=== PATIENT | female | born 1970 | race Caucasian/White ===

== ENCOUNTER 2017-11-25 14:39 | Outpatient (REF) | payer MEDICAID, SELFPAY ==
[2017-11-25 19:17] LABS: HCT 43.2 % (36.0-46.0); HGB 14.3 g/dL (12.0-15.5); Mean Corp. HGB Concentration 33.1 g/dL (32.0-36.0); Mean Corpuscular Hemoglobin 36.4 pg (27.0-33.0); Mean Corpuscular Volume 109.9 fL (80-95); Mean Platelet Volume 11.3 fL (8.0-11.0); Platelet Count 306 x1000/uL (130-400); RBC 3.93 m/cumm (4.00-5.20); RBC Distribution Width 13.6 % (11.7-14.6); White Blood Cell Count 10.84 k/cumm (4.4-10.8)
[2017-11-25 20:04] LABS: ALT 157 U/L (12-78); AST 156 U/L (15-37); Albumin 4.3 g/dL (3.4-5.0); Alkaline Phosphatase 138 U/L (46-116); Anion Gap 10.7 mmol/L (3-11); BUN 13 mg/dL (7-18); Bilirubin, Total 0.5 mg/dL (0.2-1.0); CO2 28.3 mmol/L (21.0-32.0); CREATININE 0.78 mg/dL (0.55-1.02); Calcium 9.4 mg/dL (8.5-10.1); Chloride 98 mmol/L (98-107); Glucose 97 mg/dL (70-100); LDL CHOLESTEROL 86 mg/dL (<100); Potassium 4.4 mmol/L (3.5-5.1); Sodium 137 mmol/L (136-145)
[2017-11-25 20:51] LABS: Lipase 131 U/L (73-393)
== END 2017-11-25 14:59 ==
LOC: NCHCN 14:39
PROVIDERS: PCP Internal Medicine; Visit Provider Internal Medicine
DX: K31.84 Gastroparesis (principal); F33.9 Major depressive disorder, recurrent, unspecified; Z00.00 Encounter for general adult medical examination without abnormal findings
CPT/HCPCS: 80053; 83690; 83721; 85027; 84443

== ENCOUNTER 2019-03-28 12:47 | Outpatient (REF) | payer MEDICAID, SELFPAY ==
[2019-03-28 20:47] LABS: TSH 1.99 uIU/mL (0.36-3.74)
[2019-03-28 21:47] LABS: Vitamin B12 885 pg/mL (193-986)
[2019-03-30 06:46] LABS: Vitamin D 25 Total 29.9 ng/ml (30-100)
== END 2019-03-28 13:07 ==
LOC: NCHCN 12:47
PROVIDERS: PCP Internal Medicine; Visit Provider Nurse Practitioner Psychiatric/Mental Health
DX: F33.2 Major depressive disorder, recurrent severe without psychotic features (principal); F41.0 Panic disorder [episodic paroxysmal anxiety]
CPT/HCPCS: 82306; 82607; 84443

== ENCOUNTER 2019-05-09 12:06 | Outpatient (REF) | payer MEDICAID, SELFPAY ==
[2019-05-09 19:18] LABS: ALT 97 U/L (14-59); AST 92 U/L (15-37); Albumin 3.8 g/dL (3.4-5.0); Alkaline Phosphatase 112 U/L (46-116); Anion Gap 12.6 mmol/L (3-11); BUN 7 mg/dL (7-18); Bilirubin, Total 0.6 mg/dL (0.2-1.0); CO2 25.4 mmol/L (21.0-32.0); CREATININE 0.71 mg/dL (0.55-1.02); Calcium 8.5 mg/dL (8.5-10.1); Chloride 103 mmol/L (98-107); Glucose 98 mg/dL (74-106); Potassium 3.8 mmol/L (3.5-5.1); Sodium 141 mmol/L (136-145)
== END 2019-05-09 12:26 ==
LOC: NCHCN 12:06
PROVIDERS: PCP Internal Medicine; Visit Provider Nurse Practitioner Family
DX: I10 Essential (primary) hypertension (principal)
CPT/HCPCS: 80053

== ENCOUNTER 2019-09-08 12:21 | Outpatient (REF) | payer MEDICAID, SELFPAY ==
[2019-09-08 20:20] LABS: Abs Immature Grans 0.03 k/cumm (0.0-0.09); Absolute Basophil Count 0.02 k/cumm (0.0-0.2); Absolute Lymphocyte Count 2.18 k/cumm (1.2-3.4); Absolute Monocyte Count 0.69 k/cumm (0.11-0.7); Absolute Neutrophil Count 6.26 k/cumm (1.2-6.7); Basophils % 0.2; Eosinophils % 1.1; HCT 46.2 % (36.0-46.0); HGB 16.2 g/dL (12.0-15.5); Immature Grans % 0.3 %; Lymphocytes % 23.5; Mean Corp. HGB Concentration 35.1 g/dL (32.0-36.0); Mean Corpuscular Hemoglobin 35.5 pg (27.0-33.0); Mean Corpuscular Volume 101.3 fL (80-95); Mean Platelet Volume 11.1 fL (8.0-11.0); Monocytes % 7.4; Neutrophils % 67.5; Platelet Count 295 x1000/uL (130-400); RBC 4.56 m/cumm (4.00-5.20); RBC Distribution Width 13.8 % (11.7-14.6); White Blood Cell Count 9.28 k/cumm (4.4-10.8)
[2019-09-08 20:21] LABS: Iron 151 ug/dL (50-170); Total Iron Binding Capacity 331 ug/dL (250-450); Transferrin Sat 46 % (15-50)
[2019-09-08 20:33] LABS: Ferritin 209 ng/mL (8-252); Magnesium 1.2 mg/dL (1.8-2.4)
== END 2019-09-08 12:41 ==
LOC: NCHCN 12:21
PROVIDERS: PCP Internal Medicine; Visit Provider Physician Assistant
DX: L28.0 Lichen simplex chronicus (principal)
CPT/HCPCS: 82728; 83540; 83550; 83735; 85025

== ENCOUNTER 2019-10-18 19:12 | Outpatient (REF) | payer MEDICAID, SELFPAY ==
[2019-10-18 21:52] LABS: Abs Immature Grans 0.06 10^3/uL (0.0-0.06); Absolute Basophil Count 0.03 10^3/uL (0.0-0.2); Absolute Eosinophil Count 0.11 10^3/uL (0.0-0.7); Absolute Lymphocyte Count 3.74 10^3/uL (1.2-3.4); Absolute Monocyte Count 0.72 10^3/uL (0.1-0.8); Basophils % 0.2; Eosinophils % 0.9; HCT 47.6 % (36.0-46.0); HGB 16.3 g/dL (11.2-15.7); Immature Grans % 0.5; Lymphocytes % 29.5; MCH 34.9 pg (27.0-33.0); MCHC 34.2 % (32.0-36.0); MCV 101.9 fL (80-95); MPV 10.8 fL (8.0-11.0); Monocytes % 5.7; Neutrophils % 63.2; Nucleated RBC 0 %; Platelet Count 315 10^3/uL (130-400); RBC 4.67 10^6/uL (3.93-5.22); RDW 12.8 % (11.7-14.6); RDW-SD 47.9 fL; WBC 12.68 10^3/uL (4.4-10.8)
[2019-10-18 21:55] LABS: Absolute Neutrophil Count 8.01 10^3/uL (1.2-6.7)
[2019-10-18 22:05] LABS: ALT 94 U/L (14-59); AST 52 U/L (15-37); Albumin 3.8 g/dL (3.4-5.0); Alkaline Phosphatase 126 U/L (46-116); Amylase 40 U/L (25-115); Anion Gap 14.8 mmol/L (3-11); BUN 6 mg/dL (7-18); Bilirubin, Total 0.6 mg/dL (0.2-1.0); CO2 23.2 mmol/L (21.0-32.0); CREATININE 0.73 mg/dL (0.55-1.02); Calcium 9.4 mg/dL (8.5-10.1); Chloride 104 mmol/L (98-107); Glucose 93 mg/dL (74-106); Lipase 217 U/L (73-393); Magnesium 1.6 mg/dL (1.8-2.4); Potassium 3.6 mmol/L (3.5-5.1); Sodium 142 mmol/L (136-145); Total Protein 7.2 g/dL (6.4-8.2)
== END 2019-10-18 19:32 ==
LOC: NCHCN 19:12
PROVIDERS: PCP Internal Medicine; Visit Provider Physician Assistant
DX: K86.1 Other chronic pancreatitis (principal)
CPT/HCPCS: 80053; 83690; 82150; 83735; 85025

== ENCOUNTER 2020-02-02 12:49 | Outpatient (REF) | payer MEDICAID, SELFPAY ==
[2020-02-06 22:17] LABS: COVID-19 RT-PCR Result NEGATIVE (Negative)
== END 2020-02-02 13:09 ==
LOC: NCHCN 12:49
PROVIDERS: PCP Internal Medicine; Visit Provider Physician Assistant
DX: Z20.828 Contact with and (suspected) exposure to other viral communicable diseases (principal)
CPT/HCPCS: U0003

== ENCOUNTER 2022-08-07 19:10 | Outpatient (REF) | payer MEDICARE, MEDICAID, SELFPAY ==
[2022-08-07 19:08] LABS: HCT 36.3 % (36.0-46.0); HGB 12.6 g/dL (11.2-15.7); MCH 34.2 pg (27.0-33.0); MCHC 34.7 % (32.0-36.0); MCV 99 fL (80-95); MPV 10.9 fL (8.0-11.0); Platelet Count 310 10^3/uL (130-400); RBC 3.68 10^6/uL (3.93-5.22); RDW 12.7 % (11.7-14.6); RDW-SD 46.2 fL; WBC 6.03 10^3/uL (4.4-10.8)
[2022-08-07 19:32] LABS: ALT 30 U/L (14-59); AST 28 U/L (15-37); Albumin 4.3 g/dL (3.4-5.0); Alkaline Phosphatase 80 U/L (46-116); Anion Gap 7.7 mmol/L (3-11); BUN 16 mg/dL (7-18); Bilirubin, Total 0.6 mg/dL (0.2-1.0); CO2 27.3 mmol/L (21.0-32.0); CREATININE 0.8 mg/dL (0.55-1.02); Calculated LDL 130 mg/dL (<100); Chloride 102 mmol/L (98-107); Cholesterol 218 mg/dL (<200); Estimated GFR 89.71 (mL/min/1.73m2); Glucose 92 mg/dL (74-106); HDL Cholesterol 70 mg/dL (40-60); Potassium 4.3 mmol/L (3.5-5.1); Sodium 137 mmol/L (136-145); TSH (W/Ref FT4) 1.58 uIU/mL (0.36-3.74); Total Protein 7.1 g/dL (6.4-8.2); Triglyceride 94 mg/dL (<150)
== END 2022-08-07 19:11 | disposition home or self-care (01) ==
LOC: NCHCN 19:10
PROVIDERS: PCP Internal Medicine; Visit Provider Physician Assistant
DX: I10 Essential (primary) hypertension (principal); E83.42 Hypomagnesemia; F33.1 Major depressive disorder, recurrent, moderate; E66.3 Overweight; Z87.891 Personal history of nicotine dependence
CPT/HCPCS: 80053; 80061; 85027; 84443

== ENCOUNTER 2023-08-11 15:38 | Outpatient (REF) | payer MEDICARE, SELFPAY ==
--- OUTSIDE RECORDS SUMMARY | 2023-08-11 15:46 | XMS_ITS | Continuity of Care Document ---
Author Name Unknown Organization [facility] Address [address] [place] [address] Care Team Providers Care Public Transportation Inspector Name Role Phone [place] IPHCDuncan Primary Care Physician Encounter [id number] Date(s): 03/11/23 - 04/28/[address] [id number] Discharge Disposition: Home or Self Care Attending Physician: Danilo Rios MD Admitting Physician: Danilo Rios MD Referring Physician: Danilo Rios MD Allergies, Adverse Reactions, Alerts No Known Medication Allergies Medications buPROPion 150 mg/12 hours (SR) oral tablet, extended release 0 Refill(s) Start Date: 03/23/23 Status: Ordered buPROPion 300 mg/24 hours (XL) oral tablet, extended release 300 mg = 1 tab, Oral, Daily, # 30 tab, 0 Refill(s) Start Date: 02/24/23 Status: Ordered cholecalciferol 1000 intl units oral capsule Oral, 1000 Unknown, 0 Refill(s), Take 1,000 Units by mouth daily., 0 Refill(s) Start Date: 02/07/20 Status: Ordered gabapentin 400 mg oral capsule 400 mg = 1 cap, Oral, BID, 0 Refill(s) Start Date: 02/24/23 Status: Ordered magnesium gluconate 250 mg oral tablet 250 mg 1 tab, Oral, Daily, # 30 tab, 0 Refill(s) Start Date: 02/24/23 Status: Ordered meloxicam 7.5 mg oral tablet 7.5 mg = 1 tab, Oral, Daily, # 30 tab, 0 Refill(s) Start Date: 02/24/23 Status: Ordered ondansetron 4 mg oral tablet Oral, 8 Unknown, 0 Refill(s), Take 8 mg by mouth as needed., 0 Refill(s) Start Date: 01/18/20 Status: Ordered prochlorperazine 10 mg oral tablet 0 Refill(s) Start Date: 02/24/23 Status: Ordered traZODone 50 mg oral tablet 0 Refill(s) Start Date: 02/24/23 Status: Ordered venlafaxine 225 mg oral tablet, extended release 225 mg = 1 tab, Oral, Daily, # 30 tab, 0 Refill(s) Start Date: 02/24/23 Status: Ordered Vitamin B Complex 100 Oral, 1 Unknown, 0 Refill(s), Take 1 tablet by mouth daily., 0 Refill(s) Start Date: 12/11/19 Status: Ordered Problem List Condition Confirmation Course Effective Dates Status H ealth Status Informant Diarrhea in adult patient Confirmed Active Elbow joint pain, left Confirmed Active History of tobacco use Confirmed Active Hot flashes Confirmed Active Gastroparalysis Confirmed Active History of blood clots Confirmed Active History of acute renal failure Confirmed Active History of adenomatous polyp of colon Confirmed Active Hypertension Confirmed Active Hypomagnesemia Confirmed Active Neurodermatitis Confirmed Active Elevated liver enzymes Confirmed Active Major depression Confirmed Active Nausea in adult Confirmed Active Neuralgia Confirmed Active Knee pain, right Confirmed Active Pain in right upper arm Confirmed Active Panic disorder Confirmed Active Peripheral arterial disease Confirmed Active Chronic recurrent pancreatitis Confirmed Active Small fiber neuropathy Confirmed Active Procedures Procedure Date Related Diagnosis Body Site Status Laparoscopic cholecystectomy 1 06/03/16 Completed Hysterectomy Completed Tubal ligation Completed [facility] Social History Social History Type Response Tobacco Former tobacco user Tobacco Use:. Sex Female Patient Care team information Care Team Personnel Name: Duncan Ureña MD Position: No Access Member Role: Informed Provider Address: Address: [id number] [place] [address] Care Team Related Persons Name: ERIKA YIP Address: Home
[2023-08-11 20:18] LABS: ALT 45 U/L (14-59); AST 37 U/L (15-37); Albumin 4.2 g/dL (3.4-5.0); Alkaline Phosphatase 167 U/L (46-116); Anion Gap 8.1 mmol/L (3-11); BUN 11 mg/dL (7-18); Bilirubin, Total 0.72 mg/dL (0.2-1.0); CO2 28.9 mmol/L (21.0-32.0); CREATININE 1.3 mg/dL (0.55-1.02); Calcium 9.6 mg/dL (8.5-10.1); Chloride 101 mmol/L (98-107); Estimated GFR 49.79 (mL/min/1.73m2); Glucose 88 mg/dL (74-106); Magnesium 1.5 mg/dL (1.8-2.4); Potassium 4.5 mmol/L (3.5-5.1); Sodium 138 mmol/L (136-145); Total Protein 7.6 g/dL (6.4-8.2)
== END 2023-08-11 15:39 | disposition home or self-care (01) ==
LOC: NCHCN 15:38
PROVIDERS: PCP Internal Medicine; Visit Provider Physician Assistant
DX: I10 Essential (primary) hypertension (principal); E83.42 Hypomagnesemia
CPT/HCPCS: 80053; 83735

== ENCOUNTER 2023-09-10 14:45 | Outpatient (REF) | payer MEDICARE, SELFPAY ==
--- OUTSIDE RECORDS SUMMARY | 2023-09-10 14:47 | XMS_ITS | Clinical Summary ---
Author Organization [facility] [place] [address] Care Team Providers Care Rn Transport Name Role Phone Duncan Paul MD Primary Care Provider [phone] Allergies No known active allergies Medications Medication Sig Dispensed Refills Start Date End Date Status gabapentin (NEURONTIN) 400 mg CapsuleIndications:Acut e biliary pancreatitis take 3 capsule nightly 12 08/17/2015 Active spironolactone (ALDACTONE) 50 mg TabletIndications:Acute biliary pancreatitis TAKE ONE TABLET BY MOUTH EVERY DAY 1 09/26/2015 Active aspirin 81 mg Tablet, Delayed Release (E.C.)Indications:histo ry of CVA Take 81 mg by mouth daily. Indications: history of CVA Active mirtazapine (REMERON) 30 mg Tablet Take 45 mg by mouth daily. 02/08/2020 Active Vitamin D 25 mcg (1,000 unit) Capsule Take 1,000 Units by mouth daily. 02/08/2020 Active Cholestyramine Light 4 gram Powder Take by mouth as needed. 01/17/2020 Active Magnesium Oxide 250 mg magnesium Tablet Take 250 mg by mouth 2 times daily. 02/06/2020 Active ondansetron ODT (Zofran-ODT) 8 mg Tablet, Rapid Dissolve Take 8 mg by mouth as needed. 01/19/2020 Active Vitamins B Complex Tablet Take 1 tablet by mouth daily. 12/12/2019 Active Active Problems Problem Noted Date Diagnosed Date Diarrhea 02/28/2020 Overview (02/28/2020): Added automatically from request for surgery [id number] PAD (peripheral artery disease) 01/17/2013 Cyanotic fingertip 01/17/2013 Depression 04/06/2012 Family History Medical History Relation Comments Gout Father Hypertension Mother Relation Status Comments Father Mother Social History Tobacco Use Types Packs/Day Years Used Date Smoking Tobacco: Every Day Cigarettes Smokeless Tobacco: Never Comments:denies vaping Alcohol Use Standard Drinks/Week Comments No 0 (1 standard drink = 0.6 oz pur e alcohol) Sex and Gender Information Value Date Recorded Sex Assigned at Not on file Gender Identity Not on file Sexual Orientation Not on file Last Filed Vital Signs Vital Sign Reading Time Taken Comments Blood Pressure 118/88 03/04/2020 4:30 PM EST Pulse 65 03/04/2020 3:50 PM EST Temperature 36.7 ??C (98.1 ??F) 03/04/2020 2:08 PM ES T Respiratory Rate 18 03/04/2020 4:30 PM EST Oxygen Saturation 96% 03/04/2020 4:30 PM EST Inhaled Oxygen Concentration - - Weight 81.6 kg (180 lb) 03/04/2020 2:08 PM EST Height 165.1 cm (5' 5) 03/04/2020 2:08 PM EST Body Mass Index 29.95 03/04/2020 2:08 PM EST Plan of Treatment Health Maintenance Due Date Last Done Comments CT Colonography 1971 FIT DNA 1971 FIT 1971 Sigmoidoscopy 1971 HIV screen 11/21/1989 Hepatitis B vaccine (0-59 yr s) (1) 11/21/1990 Tdap adult 11/21/1990 Tetanus vaccine 11/21/1990 HPV test 11/21/2001 PAP Smear 05/11/2010 05/11/2005 Breast Cancer Share Decision Needed 2011 Breast Cancer screening 2011 Lipid Screening 10/23/2020 10/24/2015 Zoster vaccine (1 of 2) 11/21/2021 Covid-19 Vaccine ( - 2022-2 4 season) 2022 Colonoscopy 03/04/2023 03/04/2020, 02/22, 03/04/2020, Additional history exists Colorectal Cancer Screening 03/04/2023 Influenza (Flu) vaccine (1 o f 1 - Influenza standard series) 10/24/2023 Sigmoidoscopy (10 year) with FIT yearly 03/04/2030 03/04/2020, 03/04/2020, 03/04/2020, Additional history exists Hepatitis C Screening Completed 10/24/2015 Diabetes Screening (HgbA1C o r Glucose) Discontinued 05/21/2016, 05/21/2016, 10/24/2015, Additional history exists Procedures Procedure Name Priority Date/Time Associated Diagnosis Comments COLONOSCOPY Routine 03/04/2020 2:45 PM EST COMPREHENSIVE METABOLIC PANEL (NON-FASTING) Routine 05/21/2016 11:11 AM EDT MORENO (nonalcoholic steatohepatitis) LIPID PANEL (REFLEX DIRECT LDL) Routine 10/24/2015 1:40 PM EDT Acute biliary pancreatitis HEPATITIS C ANTIBODY Routine 10/24/2015 1:40 PM EDT CYTOPATHOLOGY GYNECOLOGICAL Routine 05/11/2005 from Last 3 Months or Most Recently Relevant to Health Maintenance Results * COLONOSCOPY (03/04/2020 2:45 PM EST) COLONOSCOPY [facility] Endoscopy Procedure Date: 03/04/2020 2:45 PM ? Patient Name: Elaina Bangura ? Date of : 1970 ? Age: 49 ? Order #: [id number] ? Instrument Name: [id number] ? Procedure: ? Colonoscopy Indications: ? Chronic diarrhea Providers: ? Shannan Rodriguez, ? Cinthya Fragoso Referring MD: ?Duncan Paul MD Requesting Provider: Renetta Green Medicines: ? Fentanyl 200 micrograms IV, Midazolam ? 5 mg IV Complications: ? No immediate complications. Procedure: ? Pre-Anesthesia Assessment: ? - [place] Protocol: ? - Pre-procedure Verification: Prior ? to the procedure, the patient's ? identity was verified by full name, ? date of and medical record ? number. The patient's identity was ? verified on all pertinent medical ? records, including History and ? Physical, nursing assessment and ? pre-anesthesia assessment. Also prior ? to the procedure, a History and ? Physical was performed, and patient ? medications, allergies and ? sensitivities were reviewed. The ? patient's tolerance of previous ? anesthesia was reviewed. The risks ? and benefits of the procedure and the ? sedation options and risks were ? discussed with the patient. All ? questions were answered and informed ? consent was obtained. ? - Marking: The endoscopic procedure ? was visually marked on a patient ? wrist band delineating the patient ? name, proposed procedure and ? endoscopist's initials. ? - Time-Out: Prior to the start of the ? procedure, the patient's ? identification, proposed procedure, ? accurate signed consent, correctly ? labeled images and records, and need ? for prophylactic antibiotics were ? verified by the physician, the nurse ? and the security installation sales technician in the procedure ? room. ? The procedure, indications, benefits, ? risks and alternatives were explained ? to the patient. Specifically ? discussed were potential ? complications including, but not ? limited to, bleeding, perforation, ? infection, missing a cancer, and ? adverse medication reactions. The ? patient was placed in the left ? lateral decubitus position, and a ? digital rectal exam was performed. ? The Colonoscope was inserted in the ? anus and under direct visualization, ? advanced to the terminal ileum. ? Careful inspection was made as the ? colonoscope was withdrawn. The ? colonoscopy was performed without ? difficulty. The patient tolerated the ? procedure well. The quality of the ? bowel preparation was good. ? Findings: ? The perianal and digital rectal examinations were ? normal. ? The terminal ileum appeared normal. ? Three polyps were found in the descending colon. The ? polyps were 5 to 6 mm in size. These polyps were ? removed with a cold snare. Resection and retrieval ? were complete. For hemostasis, one hemostatic clip ? was successfully placed. There was no bleeding at the ? end of the procedure. ? Non-bleeding internal hemorrhoids were found during ? retroflexion. ? Random colon biopsies performed for evaluation of ? microscopic colitis. ? Moderate Sedation: ? I was present during the intraservice time as ? documented by the sedation RN. Impression: ?- The examined portion of the ileum ? was normal. ? - 3 polyps in the descending colon ? resected with cold snare. 1 clip ? placed. ? - Non-bleeding internal hemorrhoids. ? - Random colon biopsies performed to ? rule out microscopic colitis. Recommendation: ?- Await pathology results. ? - Repeat colonoscopy, likely in 3 ? years, for surveillance. ? Attending Participation: ? I personally performed the entire procedure. ? Tanseem Sosa, 03/04/2020 4:02:54 PM Number of Addenda: 0 Note Initiated On: 03/04/2020 2:45 PM [facility] 03/04/2020 2:45 PM EST Duncan Paul MD GENERAL SURGICAL ORD ERABLES [facility] * (ABNORMAL) Comprehensive metabolic panel (non-fasting) (05/21/2016 11:11 AM EDT) Glucose Lvl 100 65 - 199 mg/dL [facility] Comment:Diabetes: >=200 mg/d L plus symptoms BUN 10 8 - 18 mg/dL [facility] Creatinine 0.73 0.70 - 1.20 mg/dL [facility] Comment: Please note that the pediatric reference intervals supplied above were not validated at [facility]. Results from pediatric patients should be interpreted in conjunction to the patient's age, height and muscle mass. Sodium 138 135 - 145 mmol/L [facility] Potassium 4.1 3.5 - 5.0 mmol/L [facility] Comment: Please note: ??Patients with WBC >100,000 may have falsely elevated Potassium levels. ??For accurate Potassium quantification in these patients send serum separator tube (gold top) for subsequent determinations. ??Contact the Clinical Chemistry Laboratory if there are any questions. Chloride 98 98 - 107 mmol/L [facility] CO2 25 22 - 31 mmol/L [facility] Anion Gap 15 5 - 15 mmol/L [facility] Calcium 9.3 8.5 - 10.5 mg/dL [facility] Total Protein 7.9 6.1 - 8.0 gm/dL [facility] Albumin 4.7 3.2 - 5.2 gm/dL [facility] AST 97(H) 0 - 30 unit/L [facility] ALT 78(H) 0 - 30 unit/L [facility] Alk Phos 142(H) 40 - 104 unit/L [facility] Total Bilirubin 0.6 0.2 - 1.3 mg/dL [facility] Bili, Direct 0.2 0.0 - 0.3 mg/dL [facility] Estimated GFR >60 >=60 [facility] Comment: This estimated GFR (eGFR) value was calculated using the MDRD equation which has been validated on patients between the ages of 18 and 70. The MDRD should not be used to assess kidney function in patients < 18 years of age or in patients with extremes of body mass, or in patients with acute kidney failure. This value should be multiplied by 1.2 for patients. For further information please copy and paste the following links into your internet browser. [email or web address] Blood specimen (specimen) 05/21/2016 11:11 AM EDT 05/21/2016 11:30 AM EDT Narrative Resulting Agency Comment Spec In Lab Cayden Mccann MD CHEMISTRY ORDERABLE S [facility] [place] [address] * Hepatitis C Antibody (10/24/2015 1:40 PM EDT) Hepatitis C Ab Negative Negative [facility] Blood specimen (specimen) Venous Draw / Unknown 10/24/2015 1:40 PM EDT 10/24/2015 7:17 PM EDT Narrative Resulting Agency Comment Spec In Lab Cayden Mccann MD IMMUNOLOGY ORDERABL ES [facility] [place] [address] * (ABNORMAL) Lipid panel (fasting) (10/24/2015 1:40 PM EDT) Chol, Total 149 <=199 mg/dL [facility] Comment: Recommendations of the NCEP Adult Treatment Panel for the following risk cutoff thresholds for the [place] population: Desirable: <200 mg/dL Borderline High: 200-239 mg/dL High: > or = 240 mg/dL Triglycerides 248(H) <=149 mg/dL [facility] Comment: Reference Range: Normal triglycerides: ??<150 mg/dL Borderline high: ??150-199 mg/dL High: ??200-499 mg/dL Very high: ??>cg=813 mg/dL EVELIA 2001; 285(19):9308-5772 HDL 42 >=40 mg/dL [facility] Comment: Reference range: ??Low HDL: ?? < 40 mg/dL ??Normal: ?40-60 mg/dL ??Desirable: > 60 mg/dL EVELIA 2001; 285(19):0606-7776 LDL Cholesterol 57 <=99 mg/dL [facility] Comment: Reference range: ?? Optimal: ?<100 mg/dL ?? Near Optimal/Above Optimal: ?? 100-129 mg/dL ?? Borderline high: ?130-159 mg/dL ?? High: ? 160-189 mg/dL ?? Very high: ?>ah=114 mg/dL EVLEIA 2001: 285(19):5786-3649 Chol/HDL Ratio 3.5 ratio [facility] Comment: A Cholesterol to HDL ratio below 4:1 is desirable. ??Studies suggest that increased CAD risk occurs at ratios above 5 for females and above 6 for men. ? [place] [employer] Association ??(http://www.americanheart.org) ? Adilia Int Med, 1994; 121:641 ? AM J Med, 1998; 105(1A):48S Blood specimen (specimen) 10/24/2015 1:40 PM EDT 10/24/2015 1:47 PM EDT Narrative Resulting Agency Comment Spec In Lab Cayden Mccann MD CHEMISTRY ORDERABLE S [facility] [place] [address] * (ABNORMAL) Cytopathology Gynecological (05/11/2005) [facility] Cytology Final Report Please see Rachel Elias legacy report(Exte rnal Lab) RACHEL ELIAS CONVERSION 05/11/2005 Narrative RACHEL ELIAS CONVERSION - 05/12/2005 Please see Rachel Elias Legacy report Results Provider Apd Conversion PATHO LOGY/CYTOLOGY ORDERABLES RACHEL ELIAS CONVERSION from Last 3 Months or Most Recently Relevant to Health Maintenance Care Teams Rn Transport Relationship Specialty Start Date End Date Duncan Paul MD [address] [address] PCP - General General Internal Medicine 10/03/15
--- OUTSIDE RECORDS SUMMARY | 2023-09-10 14:47 | XMS_ITS | Encounter Summary ---
Author Organization [facility] Address [address] [place] [address] Care Team Providers Care Sales And In Home Delivery Specialist Name Role Phone Unknown, Provider Primary Care Provider Encounter Details Date Type Department Care Team (Late st Contact Info) Description 02/03/[address] [facility] Pathology & Laboratory Medicine - [facility] [address], [place] [id number] Outr Resulting Lab, Provider Social History Tobacco Use Types Packs/Day Years Used Date Smoking Tobacco: Never Assessed Interpersonal Safety Answer Date Record ed Physically Hurt Never 02/06/2020 Verbally Threaten Not on file 02/06/2020 Sex and Gender Information Value Date Recorded Sex Assigned at Not on file Gender Identity Not on file Sexual Orientation Not on file documented as of this encounter Plan of Treatment Not on file documented as of this encounter Procedures Procedure Name Priority Date/Time Associated Diagnosis Comments DO NOT ORDER STANDALONE - [facility] COVID TEST Today 02/02/2020 9:00 EST COVID-19 TESTING Routine 02/02/2020 9:00 EST documented in this encounter Results * DO NOT ORDER STANDALONE - BROAD COVID TEST (02/02/2020 9:00 EST) COVID-19 rt-PCR Result NEGATIVE Negative 02/06/2020 19:36 EST [facility] Comment: 2019-novel Coronavirus (2019-nCoV) not detected by the qRT-PCR assay. Consider testing for other respiratory viruses or re-collecting for 2019-nCoV testing. Note: Optimum timing for peak viral levels during infections caused by 2019-nCoV have not been determined. Collection of multiple specimens from the same patient may be necessary to detect the virus. Limitations Positive results are indicative of active infection with SARS-CoV-2 but do not rule out bacterial infection or co-infection with other viruses. The agent detected may not be the definite cause of disease. In addition, detection of viral RNA may not indicate the presence of infectious virus or that SARS-CoV-2 is the causative agent for clinical symptoms. Negative results do not preclude SARS-CoV-2 infection and should not be used as the sole basis for patient management decisions. Negative results must be combined with clinical observations, patient history, and epidemiological information. False negative results may also occur if amplification inhibitors are present in the specimen or if inadequate numbers of organisms are present in the specimen. Optimum specimen types and timing for peak viral levels during infections caused by SARS-CoV-2 have not been fully determined. Collection of multiple specimens (types and time points) from the same patient may be necessary to detect the virus. The test was validated for use with upper respiratory specimens obtained via nasopharyngeal or oropharyngeal swabs in VTM, UTM, M4, M5, M6, saline, and MTM media. The performance of this test has not been established for other specimens. Specimens collected using other FDA recommended Specimen Collection Materials listed in the FDA COVID-19 [employer] communication (May 18, 2019) are processed with the caveat that they were not all validated for use with this test and the result must be interpreted in this context. Furthermore, a false negative results may occur if a specimen is improperly collected, transported or handled. If the virus mutates in the RT-PCR target region, SARS-CoV-2 may not be detected or may be detected less predictably. Inhibitors or other types of interference may produce a false negative result. An interference study evaluating the effect of common cold medications was not performed. This test is not FDA-cleared but its performance characteristics were established by our CLIA-certified, CAP-accredited, high complexity laboratory in accordance with CLIA regulations, [employer] [place] (CAP) guidelines (May 11, 2019), and FDA guidance (Apr 22, 2019). This test is only for use under the Food and Drug Administration's Emergency Use Authorization. Swab ENTIRE NASOPHARYNX / Unknown 02/02/2020 9:00 EST 02/03/2020 21:55 EST Provider Outr Resulting Lab MICROBIOLOGY - GENERAL ORDERABLES [place] * COVID-19 TESTING (02/02/2020 9:00 EST) COVID-19 rt-PCR Result NEGATIVE Negative 02/06/2020 22:12 EST [facility] Comment: 2019-novel Coronavirus (2019-nCoV) not detected by the qRT-PCR assay. Consider testing for other respiratory viruses or re-collecting for 2019-nCoV testing. Note: Optimum timing for peak viral levels during infections caused by 2019-nCoV have not been determined. Collection of multiple specimens from the same patient may be necessary to detect the virus. Limitations Positive results are indicative of active infection with SARS-CoV-2 but do not rule out bacterial infection or co-infection with other viruses. The agent detected may not be the definite cause of disease. In addition, detection of viral RNA may not indicate the presence of infectious virus or that SARS-CoV-2 is the causative agent for clinical symptoms. Negative results do not preclude SARS-CoV-2 infection and should not be used as the sole basis for patient management decisions. Negative results must be combined with clinical observations, patient history, and epidemiological information. False negative results may also occur if amplification inhibitors are present in the specimen or if inadequate numbers of organisms are present in the specimen. Optimum specimen types and timing for peak viral levels during infections caused by SARS-CoV-2 have not been fully determined. Collection of multiple specimens (types and time points) from the same patient may be necessary to detect the virus. The test was validated for use with upper respiratory specimens obtained via nasopharyngeal or oropharyngeal swabs in VTM, UTM, M4, M5, M6, saline, and MTM media. The performance of this test has not been established for other specimens. Specimens collected using other FDA recommended Specimen Collection Materials listed in the FDA COVID-19 [employer] communication (May 18, 2019) are processed with the caveat that they were not all validated for use with this test and the result must be interpreted in this context. Furthermore, a false negative results may occur if a specimen is improperly collected, transported or handled. If the virus mutates in the RT-PCR target region, SARS-CoV-2 may not be detected or may be detected less predictably. Inhibitors or other types of interference may produce a false negative result. An interference study evaluating the effect of common cold medications was not performed. This test is not FDA-cleared but its performance characteristics were established by our CLIA-certified, CAP-accredited, high complexity laboratory in accordance with CLIA regulations, [employer] [place] (CAP) guidelines (May 11, 2019), and FDA guidance (Apr 22, 2019). This test is only for use under the Food and Drug Administration's Emergency Use Authorization. Performing Lab [facility] 02/06/2020 22:12 EST [facility] Swab 02/02/2020 9:00 EST 02/03/2020 21:55 EST Provider Outr Resulting Lab MICROBIOLOGY - GENERAL ORDERABLES [facility] [address] [place], [place] [id number] [place] [address] LABORATORY [place], [place] documented in this encounter Visit Diagnoses Not on filedocumented in this encounter Care Teams Sales And In Home Delivery Specialist Relationship Specialty Start Date End Date Unknown, Provider, PCP - General 05/23/21 documented as of this encounter
--- OUTSIDE RECORDS SUMMARY | 2023-09-10 14:47 | XMS_ITS | Encounter Summary ---
Author Organization [facility] Address [address] [place] [address] Care Team Providers Care Journalist Name Role Phone Unknown, Provider Primary Care Provider [phone] Encounter Details Date Type Department Care Team (Late st Contact Info) Description 06/18/2021 Lab Requisition [facility] Pathology & Laboratory Medicine - [facility] [address] [place] [address] Brigida Mcneil MD [address] [place] [phone] Sebaceous cyst Social History Tobacco Use Types Packs/Day Years [...] Procedure Name Priority Date/Time Associated Diagnosis Comments SURGICAL PATHOLOGY Today 06/18/2021 16 :57 EDT documented in this encounter Results * SURGICAL PATHOLOGY (06/18/2021 16:57 EDT) Note to Patient The following pathology results have been interpreted by your pathologist and may be available to you before your health provider has had the opportunity to review them. Please allow time for your provider to receive these results and explore management options, if applicable. 06/20/2021 10:28 EDT [facility] Final Diagnosis A. SKIN OF GROIN, LEFT, EXCISION: - Follicular cyst, infundibular type. 06/20/2021 10:28 EDT [facility] Attestation By the signature below, the attending physician certifies that they have 1) personally conducted a gross and/or microscopic examination of the described specimen(s), and/or personally interpreted the results of laboratory testing of the described specimen(s), and 2) personally rendered or confirmed the above diagnosis. 06/20/2021 10:28 [facility] at 1028 Clinical History Sebaceous cyst left groin; clinical diagnosis code: L72.3 06/20/2021 10:28 [facility] Gross Description A. Received in formalin labelled with proper patient identification (initials E, A) and LT growing is a nonoriented elliptical skin, 1.0 x 0.6 cm and excised to depth of 0.5 cm. The central skin surface is retracted. The margin is inked. The specimen is trisected revealing a superficial surface umbilication lined by a velarde-white surface. The surrounding tissues are dense velarde mcneil. An obvious cyst is not identified. The specimen is entirely submitted in A1. REBEKAH DAS(ASCP) 06/19/2021 8:27 06/20/2021 10:28 [facility] Performing Lab [facility] 06/20/2021 10:28 [facility] Scanned Images 06/20/2021 10:28 [facility] Tissue TISSUE SPECIMEN FROM SKIN / Unknown 06/18/2021 16:57 EDT 06/18/2021 22:37 EDT Brigida Mcneil MD PATHOLOGY ORDERABLES [facility] [address] [place] [address] documented in this encounter Visit Diagnoses Diagnosis Sebaceous cyst documented in this encounter Care Teams Journalist Relationship Specialty Start Date End Date Unknown, Provider, PCP - General 05/23/21 documented as of this encounter
--- OUTSIDE RECORDS SUMMARY | 2023-09-10 14:47 | XMS_ITS | Encounter Summary ---
[place] [address] Care Team Providers Care Payment Processor Name Role Phone Duncan Paul MD Primary Care Provider [phone] Encounter Details Date Type Department Care Team (Late st Contact Info) Description 05/14/2020 [place] [address] Lei Kirk Social History Tobacco Use Types Packs/Day Years Used Date Smoking Tobacco: Every Day Cigarettes Smokeless Tobacco: Never Comments:denies vaping Alcohol Use Standard Drinks/Week Comments No 0 (1 standard drink = 0.6 oz pur e alcohol) Sex and Gender Information Value Date Recorded Sex Assigned at Not on file Gender Identity Not on file Sexual Orientation Not on file documented as of this encounter Miscellaneous Notes * Telephone Encounter - Lei Kirk - 05/14/2020 9:33 AM EDT Inbound/Outbound: Outbound Spoke to Patient/Left Message: Left message Notes: Outbound call to patient to reschedule upcoming motility test on 07/05 due to lab schedule change. Patient needs to be rescheduled to first available. Patient will be added to the top of the wait list. Left message asking for patient to call back to reschedule. Return calls can be handled by: Mot[facility] Bitumen Plant Operator documented in this encounter Plan of Treatment Not on file documented as of this encounter Visit Diagnoses Not on filedocumented in this encounter Care Teams Payment Processor Relationship Specialty Start Date End Date Duncan Paul MD [address] [place] [id number] PCP - General General Internal Medicine 10/03/15 documented as of this encounter
--- OUTSIDE RECORDS SUMMARY | 2023-09-10 14:47 | XMS_ITS | Clinical Summary ---
Author Organization [facility] Address [address] [place] [address] Care Team Providers Care Range Examiner Name Role Phone Unknown, Provider Primary Care Provider Social History Tobacco Use Types Packs/Day Years Used Date Smoking Tobacco: Never Assessed Interpersonal Safety Answer Date Record ed Physically Hurt Never 02/06/2020 Verbally Threaten Not on file 02/06/2020 Sex and Gender Information Value Date Recorded Sex Assigned at Not on file Gender Identity Not on file Sexual Orientation Not on file Plan of Treatment Health Maintenance Due Date Last Done Comments Hepatitis C Screen 1970 Hepatitis B Vaccine (1 of 3 - 19+ 3-dose series) 11/21 COVID-19 Vaccine ( - 2022- season) 2022 Elaina Bangura Personal/Family Self [birth year] [address] [facility] [place] [address] Elaina Bangura Personal/Family Self [birth year] [address] [facility] [place] [place] [address] Elaina Bangura Personal/Family Self 1970 [address] [facility] [place] [address] Elaina Bangura Personal/Family Self 1970 [address] [facility] [address] Elaina Bangura A Personal/Family Self 1970 [address] [facility] [place] [address] Elaina Bangura A Personal/Family Self 1970 [address] [facility] [address] Elaina Bangura A Personal/Family Self 1970 [address] [facility] [address] Care Teams Range Examiner Relationship Specialty Start Date End Date Unknown, Provider, PCP - General 05/23/21
--- OUTSIDE RECORDS SUMMARY | 2023-09-10 14:47 | XMS_ITS | Continuity of Care Document ---
Author Organization [facility] Address [address] [place] [address] Care Team Providers Care Informatics Coordinator Name Role Phone Duncan Ureña Primary Care Physician Encounter [id number] Date(s): 09/02/22 - 09/02/[address] [phone] Discharge Disposition: Home or Self Care Attending Physician: Gifty Mera PA-C Admitting Physician: Gifty Mera PA-C Referring Physician: Gifty Mera PA-C Allergies, Adverse Reactions, Alerts No Known Medication Allergies Social History Social History Type Response Sex Female Patient Care team information Care Team Personnel Name: Duncan Ureña MD Position: No Access Member Role: Primary Care Physician Address: Address: [address] [address] Care Team Related Persons Name: ERIKA YIP Address: Home
--- OUTSIDE RECORDS SUMMARY | 2023-09-10 14:47 | XMS_ITS | Data Portability ---
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 She is also experiencing hot flashes and palpitations, which require further evaluation and management. The patient's low magnesium levels may be contributing to her mental health symptoms. [email or web address] Not available 08/11/2023 11:17:58 Plan of Treatment Reminders Order Date Submit Date Provider Last Modified By Organization Details Last Modified Time Details Appointments Follow Up 2023 10:30A Maricruz MONROE Not available Not available Not available Follow Up 2023 10:00A Maricruz MONROE Not available Not available Not available Lab magnesium , serum or plasma 2023 024 [email or web address] [facility] (Registration ), [address] [place] [address] [place], [address], 08/12/2023 07:56:51 CMP, serum or plasma 2023 024 [facility] (Registration ), [address] [place] [address] [place], [address], 08/11/2023 20:22:39 magnesium , serum or plasma 2023 024 [facility] [address] [place] [address] [place], [address], 09/10/2023 11:20:35 CMP, serum or plasma 2023 024 [email or web address] [facility] (Registration ), [address] [place] [address] [place], [address], 09/10/2023 11:20:37 Referral physical therapist referral 2023 024 [email or web address] [facility], [address] , [address], [place], [address], 09/10/2023 14:28:21 psychiatr ist referral - referral for depressio n. pt on max wellbutri n. tried adding prozac at 10mg but she didnt like how it made her feel. currently no SI or HI. pt sees counselor every 2 weeks. her symptoms worsen in the winter. 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 History of polyps she is due in February 2023. 2022 023 [email or web address] [facility], [address] , [place], [address], 04/21/2023 07:45:26 Surgeries None recorded. Imaging MAMMO, screening , bilateral 2023 024 [email or web address] [facility], [address] , [place], [address], 09/10/2023 08:23:04 Medication Orders meloxicam 7.5 mg tablet 2022 023 [email or web address] [employer] [facility], [address], [place], [address], 08/12/2023 15:41:55 fluoxetin e 10 mg capsule 2023 024 [email or web address] [employer] [facility], [address], [place], [address], 08/11/2023 10:39:59 Patient TargetsNo targets recorded. Patient Instructions Encounter Date Encounter Id Patient Instructions Last Modified By Organization Details Last Modified Time 01/21/2023 [id number] A referral has been placed for {{Allergy Audiolo gy Bariatric Card iology Colonoscop y* Soil Conservationist Endo crinology ENT Gas troenterology Gen eral Surgery Genetics Hematology/Oncolo gy Nephrology Carmen rology CLINICAL DATA PROGRAMMER Opt ometry/Ophthalmol ogy Orthopedics [facility] Physical Therapy Podiatry Psychiatry Pulmon ology Rheumatolog y Sleep Clinic Spine Clinic Urology Va scular Surgery}} at {{[facility] ([facility])* Marlo frost [facility] ([facility]) [facility] ([facility]) [facility] ([facility]) [facility] ([facility]) [facility] ([facility]) [facility]}}. If you do not receive a call to schedule an appointment in 7-10 days, please contact our retail pricing coordinator at Look into Cookie Vasquez podcast (recent podcast episodes on people pleasing and gut microbiome) increasing meloxicam to 1 tablet twice daily. do not take NSAIDs while on this ie ibuprofen. can take tylenol/acetamino phen if needed Call with any questions or concerns Not available 01/21/2023 10:10:29 03/19/2023 [id number] start on fluoxetine 10mg 1 capsule once daily continue other medications as prescribed Call with any questions or concerns Not available 03/19/2023 11:20:03 08/11/2023 [id number] diet [email or web address] Not available 08/10 10:39:40 exercise [email or web address] Not available 2023 10:39:40 {{[facility] ([facility])* Marlo frost [facility] ([facility]) [facility] ([facility]) [facility] ([facility]) [facility] ([facility]) [facility] ([facility]) [facility]}} will contact you to schedule {{bone density CT scan Heart Monitor mammogram * MRI Ultrasound Stress Test Xray}}. If you do not receive a call in 7-10 days please contact the office. talk to [facility] about getting on their sliding scale to help cover 20% medicare will not cover and ask about what your cost would be for colonoscopy amberen and vitamin E 30-35 units daily. get this over the counter to try for hot flashes You had blood work done today. Please allow up to 2 weeks to hear about results. continue with counseling continue to hold the [employer] Call with any questions or concerns [email or web address] Not available 08/11/2023 10:43:24 09/10/2023 [id number] call [facility] to discuss secondary insurance to cover the 20% that medicare does not continue with vitamin E and magnesium supplement You had blood work done today. Please allow up to 2 weeks to hear about results. continue with counselor A referral has been placed for Nat Cano occupational psychologist here. If you do not receive a call to schedule an appointment in 7-10 days, please contact our retail pricing coordinator at A referral has been placed for {{Allergy Audiolo gy Bariatric Card iology Colonoscop y Soil Conservationist Endoc rinology ENT [place] roenterology Gene ral Surgery Genetics Hematology/Oncolo gy Nephrology Carmen rology CLINICAL DATA PROGRAMMER Opt ometry/Ophthalmol ogy Orthopedics [facility] Physical Therapy* Podiatry Psychiatry Pulmo nology Rheumatolo gy Sleep Clinic Spine Clinic Urology Va scular Surgery}} at {{[facility] ([facility])* Marlo rn [facility] ([facility]) [facility] ([facility]) [facility] ([facility]) [facility] ([facility]) [facility] ([facility]) [facility]}}. If you do not receive a call to schedule an appointment in 7-10 days, please contact our retail pricing coordinator at Call with any questions or concerns Not available 09/10/2023 10:51:23 Reason for Referral Psychiatrist Referral for Mo derate recurrent major depression referral for depression. pt on max wellbutrin. tried adding prozac at 10mg but she didnt like how it made her feel. currently no SI or HI. pt sees counselor every 2 weeks. her symptoms worsen in the winter. Referring Physician: Gifty Monroe [facility], Encounter Date: 09/10/2023 Physical Therapist Referral for Low back pain co-occurrent with neuralgia of right sciatic nerve Referring Physician: Gifty Monroe [facility], Encounter Date: 09/10/2023 Results Created Date Observation Date Name Description Value Unit Range Abnormal Flag LastModifiedBy Organization Detail LastModifiedTime 08/11/19 24 08/11/2023 COMPR EHENS DERREK METAB OLIC PANEL calcium 9.6 mg/dL 8.5-10 .1 normal Not Available [address] [place], [address] 08/11/2023 20:22:39 08/11/19 24 08/11/2023 COMPR EHENS DERREK METAB OLIC PANEL glucose 88 mg/dL 74-106 normal Not Available [address] [place], [address] 08/11/2023 20:22:39 08/11/19 24 08/11/2023 COMPR EHENS DERREK METAB OLIC PANEL BUN 11 mg/dL 7-18 normal Not Available [address] [place], [address] 08/11/2023 20:22:39 08/11/19 24 08/11/2023 COMPR EHENS DERREK METAB OLIC PANEL creatinine 1.3 mg/dL 0.55-1 .02 high Not Available [address] [place], [address] 08/11/2023 20:22:39 08/11/19 24 08/11/2023 COMPR EHENS DERREK METAB OLIC PANEL estimated GFR 49.79 mL/min /1.73m 2 Not Available [address] [place], [address] 08/11/2023 20:22:39 08/11/19 24 08/11/2023 COMPR EHENS DERREK METAB OLIC PANEL total protein 7.6 g/dL 6.4-8. 2 normal Not Available [address] [place], [address] 08/11/2023 20:22:39 08/11/19 24 08/11/2023 COMPR EHENS DERREK METAB OLIC PANEL albumin 4.2 g/dL 3.4-5. 0 normal Not Available [address] [place], [address] 08/11/2023 20:22:39 08/11/19 24 08/11/2023 COMPR EHENS DERREK METAB OLIC PANEL bilirubin, total 0.72 mg/dL 0.2-1. 0 normal Not Available [address] [place], [address] 08/11/2023 20:22:39 08/11/19 24 08/11/2023 COMPR EHENS DERREK METAB OLIC PANEL alk phos 167 U/L 46-116 high Not Available [address] [place], [address] 08/11/2023 20:22:39 08/11/19 24 08/11/2023 COMPR EHENS DERREK METAB OLIC PANEL sodium 138 mmol/ L 136-14 5 normal Not Available [address] [place], [address] 08/11/2023 20:22:39 08/11/19 24 08/11/2023 COMPR EHENS DERREK METAB OLIC PANEL potassium 4.5 mmol/ L 3.5-5. 1 normal Not Available [address] [place], [address] 08/11/2023 20:22:39 08/11/19 24 08/11/2023 COMPR EHENS DERREK METAB OLIC PANEL chloride 101 mmol/ L 98-107 normal Not Available [address] [place], [address] 08/11/2023 20:22:39 08/11/19 24 08/11/2023 COMPR EHENS DERREK METAB OLIC PANEL CO2 28.9 mmol/ L 21.0-3 2.0 normal Not Available [address] [place], [address] 08/11/2023 20:22:39 08/11/19 24 08/11/2023 COMPR EHENS DERREK METAB OLIC PANEL anion gap 8.1 mmol/ L 3-11 normal Not Available [address] [place], [address] 08/11/2023 20:22:39 08/11/19 24 08/11/2023 COMPR EHENS DERREK METAB OLIC PANEL AST 37 U/L 15-37 normal Not Available [address] [place], [address] 08/11/2023 20:22:39 08/11/19 24 08/11/2023 COMPR EHENS DERREK METAB OLIC PANEL ALT 45 U/L 14-59 normal Not Available [address] [place], [address] 08/11/2023 20:22:39 08/11/19 24 08/11/2023 MAGNE SIUM magnesium 1.5 mg/dL 1.8-2. 4 low Not Available [address] [place], [address] 08/11/2023 20:22:39 Result Notes None recorded. Problems Name Status Onset Date Resolution Date Notes Provider Name and Address Organization Details Recorded Time Nicotine dependence Completed 201301/21/2023 07/23/2022 - Comments only - Gifty WELCH - In September 2022 patient will be smoke-free for 1 year. Congratulated patient and keep up the good work. Problem Code: Z87.891; Problem Code Type: ICD-10; GIFTY MONROE PA-C [address], [place], [address] , [place] - [facility] 11:43:45 Neuralgia Completed 201301/21/2023 05/27/2017 - Comments only - Duncan Paul MD - Now off opiates, continues on low-dose gabapentin. GIFTY MONROE PA-C [address], [place], [address] , [facility] 3 11:43:24 [facility]ential [facility] 14:29:38 Chronic pancreatitis Active 2015 Chronic recurrent pancreatitis -- Idiopathic [facility] 14:29:04 Chronic pain Completed 201510/03/2015 Problem Code: G89.29; Problem Code Type: ICD-10; Not Available [facility] 3 04:16:56 Nausea Completed 201501/21/2023 09/17/2020 - Comments only - Gifty WELCH - Continue with pantoprazole 40 mg once daily. Discussion with patient that she should only be taking the Compazine or Zofran as needed and ideally only a couple of times per week as it is not good for her to be taking this regularly. Advised her to schedule with the gastroenterol ogist for smart pill testing Problem Code: R11.0; Problem Code Type: ICD-10; GIFTY MONROE PA-C [address], [place], [address] , [facility] 3 11:43:24 Moderate recurrent major depression Active 2015 [facility] 14:41:05 Gastroparesis syndrome Active 2015 Tami Olivas [facility] 4 14:29:54 Increased frequency of urination Completed 201501/23/2016 Problem Code: R35.0; Problem Code Type: ICD-10; Not Available [facility] 3 04:16:57 High enzyme level in serum Active 2016 [facility]vated liver enzymes [facility] 14:30:39 Adult health examination Active 2016 Tami Olivas [facility] 4 14:27:08 Dehiscence of external surgical incision wound Completed 201606/26/2016 Problem Code: T81.31xA; Problem Code Type: ICD-10; Not Available [facility] 3 04:16:57 Diarrhea Active 2016 [facility] 4 14:29:26 Impacted cerumen in right ear Completed 201611/24/2016 10/13/2016 - Comments only - Marcus Robbins PA-C - Irrigated by nursing staff. Resolution of symptoms. Recheck as needed. Problem Code: H61.21; Problem Code Type: ICD-10; Not Available [facility] 3 04:16:57 Panic disorder Active 2017 [facility] 4 14:41:32 Lichen simplex chronicus Active 2017 Neurodermatit is [facility] 4 14:40:05 History of thromboemboli sm Active 2019 History of blood clots [facility] 4 14:36:37 Impacted cerumen in right ear Completed 201908/17/2019 08/15/2019 - Comments only - Gifty WELCH - -Wax removed with ear irrigation with warm water and hydrogen peroxide. Patient tolerated well. Her hearing is better and the pain is much improved since having the wax removed. No signs or symptoms of infection. Problem Code: H61.21; Problem Code Type: ICD-10; Not Available [facility] 3 04:16:58 Disorder of the peripheral nervous system Completed 201901/21/2023 05/30/2021 - Comments only - Gifty WELCH - Refill of gabapentin 40 mg 2 capsules at bedtime. Problem Code: G64; Problem Code Type: ICD-10; [address], [place], [address] , [facility] 3 11:43:24 Hypomagnesemi a Active 2019 Tami Brendon edwards [facility] 4 14:38:33 Exposure to communicable disease Completed 201902/03/2020 Problem Code: Z20.828; Problem Code Type: ICD-10; Not Available [facility] 3 04:16:58 Pain of right knee joint Completed 202101/21/2023 03/28/2021 - Comments only - Gifty WELCH - Offered for patient to have an x-ray but she wants to hold off for right now. Continue with conservative treatment Problem Code: M25.561; Problem Code Type: ICD-10; [address], [place], [address] [facility] 3 11:43:24 Screening mammography Completed 202105/31/2021 05/30/2021 - Comments only - Gifty WELCH - Order sent to [facility] radiology Problem Code: Z12.31; Problem Code Type: ICD-10; Not Available [facility] 3 04:16:59 Follicular cysts of skin and subcutaneous tissue Completed 202105/31/2021 05/30/2021 - Comments only - Gifty WELCH - Referral to [facility] general surgery for excision of cyst Problem Code: L72.9; Problem Code Type: ICD-10; Not Available [facility] 3 04:16:59 Menopause present Active 2021 Hot flashes NUSRAT Tee [facility] 4 14:40:31 Condyloma acuminatum of the anogenital region Completed 202203/27/2022 03/26/2022 - Comments only - Gifty WELCH - Patient refused exam unable to officially diagnose genital warts. Explained to patient there is not a blood test for this that it is a clinical diagnosis. She does not want to have them treated anyways so she declined exam. Explained to patient that I cannot make official diagnosis though without examination and she is aware of this Problem Code: A63.0; Problem Code Type: ICD-10; Not Available [facility] 3 04:16:59 Overweight Completed 202207/24/2022 Problem Code: E66.3; Problem Code Type: ICD-10; Not Available [facility] 3 04:17:00 Screening mammography Completed 202207/24/2022 Problem Code: Z12.31; Problem Code Type: ICD-10; Not Available [facility] 3 04:17:00 Pain of right upper arm Active 2022 NUSRAT Tee - [facility] 4 14:41:23 Tobacco dependence caused by cigarettes Completed 201311/18/2022 03/26/2022 - Comments only - Gifty WELCH - Patient continues to be smoke-free. Keep up the good work. Problem Code: F17.210; Problem Code Type: ICD-10; Not Available [facility] 3 04:17:02 Arterial embolus and thrombosis Completed 201301/28/2015 Problem Code: 444.89; Problem Code Type: ICD-9; Not Available [facility] 3 04:17:02 Depressive disorder Completed 201301/28/2015 Not Available [facility] 3 04:17:02 Paresthesia Completed 201911/18/2022 03/20/2020 - Comments only - Gifty WELCH - Keep appointment with neurology as scheduled. Problem Code: R20.2; Problem Code Type: ICD-10; Not Available [facility] 3 04:17:02 Severe recurrent major depression without psychotic features Completed 201511/18/2022 08/26/2019 - Comments only - Chantal Murphy APRN - Partial improvement but she still has Symptoms of mood /depression. PHQ-9 score -=12 today. She contineu on Mirtazapine and has a community counselor. Recent pain has interefered with sleep. Hadnt had follow up since March, as covid was starting. Agrees to more regular follow up to work on better stabilizing mood symptoms. Problem Code: F33.2; Problem Code Type: ICD-10; Not Available [facility] 3 04:17:03 Benign neoplasm of colon Completed 202011/18/2022 03/20/2020 - Comments only - Gifty WELCH - Repeat: Colonoscopy in 3 years. Problem Code: D12.6; Problem Code Type: ICD-10; Not Available [facility] 3 04:17:03 Carpal tunnel syndrome of left wrist Completed 201405/09/2019 Problem Code: G56.02; Problem Code Type: ICD-10; Not Available [facility] 3 04:17:03 Elevated blood-pressur e reading without diagnosis of hypertension Completed 201411/18/2022 Problem Code: R03.0; Problem Code Type: ICD-10; Not Available [facility] 3 04:17:03 Acute kidney injury Completed 201511/18/2022 Problem Code: N17.9; Problem Code Type: ICD-10; Not Available [facility] 3 04:17:04 Pancreatitis Completed 201511/18/2022 Not Available [facility] 3 04:17:05 Recurrent major depression Completed 201511/18/2022 06/30/2018 - Comments only - Marcus Robbins PA-C - She did not see much benefit increasing her antidepressan t. I recommend she decrease this as this may be blunting some of her jennifer. She has made some progress with counseling. She has started to return to doing activities that she used to do. I have encouraged her to continue to work with her counselor given that she is only been working with them for 4 months I do feel she has made significant progress. She is aware of this. She will recheck with us as scheduled. If she does not notice continued improvement with counselor and medication change then consider psychiatric evaluation. Problem Code: F33.9; Problem Code Type: ICD-10; Not Available [facility] 3 04:17:05 Nicotine dependence in remission Active 2022 GIFTY MONROE PA-C [address], [place], [address] , [facility] 3 11:45:06 Pain of left elbow joint Active 2022 Tami Olivas [facility] 4 14:43:35 Laparoscopic- assisted vaginal hysterectomy Active 2013 Problem Code: Z90.710; Problem Code Type: ICD-10; Tami Brendon [facility] 4 14:26:54 History of adenomatous polyp of colon Active 2020 repeat colonoscopy 02/2023 per GI [facility] 4 14:31:46 History of acute kidney injury Active 2015 Problem Code: Z87.448; Problem Code Type: ICD-10; Tami [facility] 4 14:38:05 Peripheral arterial disease Active 2013 Peripheral artery disease -- embolism rt hand 2012 [facility] 4 14:43:01 Vaginal hysterectomy Completed 201305/03/2013 Removal Reason: Vag Hyst For Menorrhagia [facility] 4 14:45:07 Ex-smoker Completed 201305/03/2013 Ex-smoker, 25 P-y , Quit 2013 Removal Reason: inactive [facility] 4 14:46:49 Serum creatinine above reference range Active 2023 GIFTY MONROE PA-C [address], [place], [address] , [facility] 4 15:53:55 Low back pain co-occurrent with neuralgia of right sciatic nerve Active 2023 GIFTY MONROE PA-C [address], [place], [address] , [facility] 4 14:27:40 Problem Notes None recorded. Medical Equipment None Reported. Allergies No known drug allergies Medications Name Sig Start Date Stop Date Status Note LastModified by Organization Details LastModified Time fluoxetin e 40 mg capsule Take 1 tab by mouth daily 04/14 completed Not Available Not Available Not Available venlafaxi ne ER 75 mg capsule,e xtended release 24 hr Take 1 by mouth daily (take along with 150mg capsule for total 225mg daily) 01/17 completed Not Available Not Available Not Available nicotine 14 mg/24 hr daily transderm al patch Apply to hairless skin daily, rotate skin sites 10/15 completed Not Available Not Available Not Available trazodone 50 mg tablet TAKE 1/2 TO 1 TABLET BY MOUTH DAILY AT BEDTIME NEEDED active Not Available Not Available No t Available aspirin 325 mg tablet 1 tab qday 05/07 completed Not Available Not Available Not Available hydrocodo ne 5 mg-acetam inophen 325 mg tablet Take 1 tab by mouth four times daily as needed for pain 02/26 completed Not Available Not Available Not Available ondansetr on HCl 4 mg tablet TAKE ONE TABLET BY MOUTH EVERY 6 HOURS NEEDED FOR NAUSEA 10/17 completed Not Available Not Available Not Available spironola ctone 100 mg tablet TAKE ONE TABLET BY MOUTH EVERY DAY 03/28 completed Not Available Not Available Not Available gabapenti n 400 mg capsule TAKE 1 capsule in the morning and at bedtime active Not Available Not Available No t Available clindamyc in HCl 150 mg capsule Take 1 cap by mouth three times daily 07/22 completed Not Available Not Available Not Available venlafaxi ne ER 150 mg capsule,e xtended release 24 hr TAKE ONE CAPSULE BY MOUTH EVERY DAY 01/17 completed Not Available Not Available Not Available prochlorp erazine maleate 10 mg tablet Take 1 tab every8 hours as needed for nausea, take if the zofran is ineffect derrek 2020 active started by [facility] on 06/02 Not Available Not Available Not Available omeprazol e 40 mg capsule,d elayed release Take 1 tab by mouth daily. 02/25 completed Not Available Not Available Not Available tramadol 50 mg tablet Take 1 tab by mouth three times a day as needed 04/21 completed Not Available Not Available Not Available simvastat in 40 mg tablet Take 1 by mouth daily 01/28 completed Not Available Not Available Not Available ondansetr on 8 mg disintegr ating tablet PLACE ONE TABLET UNDER THE TONGUE EVERY 8 HOURS NEEDED FOR NAUSEA / VOMITING 03/28 completed Not Available Not Available Not Available meloxicam 7.5 mg tablet TAKE ONE TABLET BY MOUTH TWICE A DAY 08/11 completed Not Available Not Available Not Available pantopraz ole 40 mg tablet,de layed release Take 1 tablet by mouth once a day 2020 active Not Available Not Available Not Avai lable mirtazapi ne 30 mg tablet TAKE 1 & 1/2 TABLETS BY MOUTH AT BEDTIME 01/29 completed Not Available Not Available Not Available oxycodone 5 mg capsule Q4H PRN 02/25 completed hospital discharg e Not Available Not Available Not Available ibuprofen 400 mg tablet Take 1 tab by mouth every 6-8 hours as needed for pain 02/25 completed Not Available Not Available Not Available fluoxetin e 10 mg capsule TAKE ONE CAPSULE BY MOUTH EVERY DAY 08/10 completed Not Available Not Available Not Available magnesium 250 mg tablet TAKE ONE TABLET BY MOUTH TWICE A DAY 2020 active Not Available Not Available Not Avai lable aspirin 81 mg tablet 1TAB daily 2014 active Not Available Not Available Not Avai lable mirtazapi ne 15 mg tablet take one and 1/2 tabs at bedtime. 2018 active Not Available Not Available Not Avai lable Aspir-81 mg tablet,de layed release Take 1 tab by mouth daily 11/25 completed Not Available Not Available Not Available Ativan 0.5 mg tablet 1 tab daily as needed Fill at IP 05/27 completed Not Available Not Available Not Available ondansetr on 4 mg disintegr ating tablet Take 1-2 under the tongue every 6 hours as needed for nausea 2019 active Not Available Not Available Not Avai lable fluoxetin e 20 mg capsule Take 1 tab by mouth daily 04/28 completed Not Available Not Available Not Available spironola ctone 50 mg tablet Take 1 tab by mouth daily 04/14 completed Not Available Not Available Not Available vitamin B complex capsule TAKE ONE CAPSULE BY MOUTH EVERY DAY active Not Available Not Available No t Available magnesium 250 mg (as magnesium oxide) tablet TAKE ONE TABLET BY MOUTH TWICE A DAY active Not Available Not Available No t Available Vitamin D3 25 mcg (1,000 unit) tablet 1 tablet by mouth once a day 03/28 completed Not Available Not Available Not Available Vitamin D3 25 mcg (1,000 unit) capsule TAKE ONE CAPSULE BY MOUTH EVERY DAY 11/26 completed Not Available Not Available Not Available bupropion HCl XL 300 mg 24 hr tablet, extended release TAKE ONE TABLET BY MOUTH EVERY DAY IN THE MORNING active Not Available Not Available No t Available bupropion HCl XL 150 mg 24 hr tablet, extended release TAKE ONE TABLET BY MOUTH EVERY DAY, WITH 300 MG active Not Available Not Available No t Available mirtazapi ne 7.5 mg tablet Take 1 tab by mouth at bedtime 2018 active Not Available Not Available Not Avai lable duloxetin e 30 mg capsule,d elayed release TAKE ONE CAPSULE BY MOUTH EVERY DAY 05/30 completed Not Available Not Available Not Available Lyrica 100 mg capsule Take 1 cap by mouth twice daily 10/21 completed replaces gabapent in Not Available Not Available Not Available ProAir HFA 90 mcg/actua tion aerosol inhaler 1-2 every four to six hours as needed 03/28 completed Not Available Not Available Not Available Cholestyr amine Light 4 gram oral powder Dissolve 1 by mouth twice a day 09/17 completed Not Available Not Available Not Available venlafaxi ne ER 225 mg tablet,ex tended release 24 hr Take 1 by mouth daily 2017 active Not Available Not Available Not Avai lable Creon 36,000 unit-114, 000 unit-180, 000 unit capsule,d elayed release 1 before meals, 1 before snacks 04/[address] Emmie Hernandez at [facility] Not Available Not Available Not Available B Complex 1 (with folic acid) 0.4 mg tablet Take 1 tablet by mouth once a day 12/02 completed Not Available Not Available Not Available Vitals Date Recorded Body height Body mass index (BMI) Body weight Oxygen saturation Oxygen saturation in Arterial blood by Pulse oximetry Heart rate Systolic blood pressure Diastolic blood pressure Provider Name and Address Organization Details Last Updated DateTime 3 165.735 cm 25.1 kg/m2 68297.3 2 g 98 % 98 % 59 /min 106 mm[Hg] 76 mm[Hg] BRUCE HANNA MA [facility] 3 09:55:08 Date Recorded Body height Body mass index (BMI) Body weight Oxygen saturation Oxygen saturation in Arterial blood by Pulse oximetry Heart rate Body temperature Systolic blood pressure Diastolic blood pressure Provider Name and Address Organization Details Last Updated DateTime 4 165.735 cm 26.4 kg/m2 24762.1 2 g 99 % 99 % 72 /min 97.4 [degF] 132 mm[Hg] 64 mm[Hg] Aj Wallace RN [facility] 4 11:06:16 Date Recorded Body height Body mass index (BMI) Body weight Body temperature Respiratory rate Oxygen saturation Oxygen saturation in Arterial blood by Pulse oximetry Heart rate Systolic blood pressure Diastolic blood pressure Provider Name and Address Organization Details Last Updated DateTime 4 165.1 cm 26.5 kg/m2 85912.2 9 g 96.7 [degF] 18 /min 97 % 97 % 60 /min 130 mm[Hg] 80 mm[Hg] ELSA MERLOS L[facility] 4 10:02:38 Date Recorded Body height Body mass index (BMI) Body weight Oxygen saturation Oxygen saturation in Arterial blood by Pulse oximetry Heart rate Systolic blood pressure Diastolic blood pressure Provider Name and Address Organization Details Last Updated DateTime 4 165.1 cm 26.8 kg/m2 35536.0 5 g 96 % 96 % 58 /min 110 mm[Hg] 70 mm[Hg] Aj Wallace RN [place] [facility] 10:23:20 Social History Question Answer Notes LastModified by Organizat ion Details LastModified Time Tobacco Smoking Status Former Smoker BRUCE HANNA MA [facility], [facility] 01/21/2023 09:51:59 When Did You Quit Smoking? 1-5yearssinc elastcigaret te Information not available 08/11/2023 What Was The Date Of Your Most Recent Tobacco Screening? 08/11/2023 Information not available 08/11/2023 Sex: Female Functional Status None recorded. Mental Status None recorded. Family History Relationship Description Onset Age of this Age Resolved Age Notes Mother Family history of Hypertension Notes:*Problem: Mother: Aliv e , htn Father: Alive Children: 2 a and w Family History of: Hypertension: Yes Medical History No medical history recorded. Gynecological HistoryNo gynecological history recorded. Obstetrics History GPAL:G 0 P 0 0 0 0 Immunizations Vaccine Type Date Status Provider Name and Address Organization Details Recorded Time Tdap 05/07/2014 completed Not Available [facility] 05:13:18 Influenza, split virus, trivalent, preservative 11/21/2015 completed Not Available [facility] 01/01/2023 05:13:20 Influenza, split virus, trivalent, preservative 01/28/2015 completed Not Available [facility] 01/01/2023 05:13:20 Influenza, split virus, quadrivalent, PF 02/19/2022 completed Not Available [facility] 01/01/2023 05:13:20 Influenza, split virus, quadrivalent, preservative 04/14/2017 completed Not Available [facility] 01/01/2023 05:13:21 zoster recombinant 07/23/[address] [facility] 01/01/2023 05:13:22 pneumococcal polysaccharide PPV23 04/14/2017 completed Not Available [facility] 2022 05:13:24 influenza, unspecified formulation 2018 completed Not Available [facility] 01/01/2023 05:13:26 Past Encounters Encounter ID Performer Location Encounter Start Date Encounter Closed Date Diagnosis/Indication Diagnosis SNOMED-CT Code [id number] GIFTY MONROE PA-C [address] [place] [address] 01/21/2023 09:43:20 01/21/2023 10:20:08 Moderate recurrent major depression 00430170 Essential hypertension 19942737 Pain of ri ght upper arm 105546964065224 Small fibe r neuropathy 918062926 Nicotine d ependence in remission 059205683 History of polyp of colon 480713873 [id number] GIFTY MONROE [address] [address] 03/19/2023 10:47:03 03/19/2023 11:23:05 Moderate recurrent major depression 27214651 Pain of ri ght upper arm 626819658645917 [id number] GIFTY MONROE [address] [address] 08/11/2023 09:37:33 08/11/2023 10:50:57 Essential hypertension 05493117 Overweight 166653279 Screening for malignant neoplasm of breast 617386061 Hypomagnesemia 633776918 Menopausal flushing 1983 02153 Palpitations 23555345 Moderate r ecurrent major depression 49841294 [id number] GIFTY MONROE [address] [address] 09/10/2023 09:56:20 09/10/2023 11:15:51 Hypomagnesemia 468626556 Serum crea tinine above reference range 541393211 Low back p ain co-occurrent with neuralgia of right sciatic nerve 334456791229320 Menopausal flushing 1983 90957 Moderate r ecurrent major depression 48519916 Health Concerns Section Related Observation LastModified by Organization Detai ls LastModified Time None Recorded Concern Status LastModified by Organization Details LastModified Time None Recorded Advance Directives Directive None Recorded Payers Encounter Date Sequence Insurance Name Policy Number Policy St[employer] Covered Member ID [employer] Member ID Guarantor Name 01/21/2023 1 [place] [employer] Elaina Chaparroestelita [id number] 3 Elaina Chaparroon 03/19/2023 1 [place] [employer] Leaina Shankarestelita [id number] 3 Elaina Eaton 08/11/2023 1 [place] [employer] [place] Elaina Bangura [id number] 3 Elaina Bangura 09/10/2023 1 [place] [facility] Elaina Bangura [id number] 3 Elaina Bangura Notes Date Note Type Note Provider Name and Address Organization Details Recorded Time 01/21/2023 text/html HPI Notes: Alfred kamara presents for follow-up chronic conditions. She notes that increasing the gabapentin to 800 mg and adding the meloxicam 7.5 mg once daily was helping tremendously for the first few weeks. She notes that now it helps during the day but wears off at night and it is making her have a hard time sleeping at night. Her blood pressure is well-controlled today. She continues to meet with her counselor regularly. She states that her mood is stable. She continues to stay active. She denies SI or HI. She did not hear about scheduling her colonoscopy at [facility]. She is due in February. She quit smoking in September 2021 and is doing well with cessation. She does not have any other concerns. [address], [place], [address], [facility] 01/21/2023 11:48:30 03/19/2023 text/html HPI Notes: Alfred kamara presents for follow-up chronic conditions. She mentions that the increase of the meloxicam to twice daily has helped with her pain. She mentions that she notices a difference if she misses a dose. She mentions that she has been struggling with wintertime. She continues to see her counselor once weekly. She had recommended patient taking the medication in conjunction with her Wellbutrin. Patient has taken Prozac before in the past but never with the Wellbutrin. She mentions that she is having a hard time getting the motivation to be active like she was. She has gained weight since she has not been as active. She denies SI or HI. [address], [place], [address], [facility]. 03/19/2023 11:32:48 08/11/2023 text/html HPI Notes: Alfred kamara presents with concerns about hypertension, depression, hot flashes, and palpitations. Hypertension: The patient's blood pressure is controlled through medication and lifestyle changes. Her blood pressure today is 130/80. Depression: The patient struggles with depression, which is worse during the winter months. She was started on fluoxetine 10 mg daily in combination with Wellbutrin 450 mg daily in February but stopped taking it two weeks ago due to side effects. She notes it made her more anxious. She sees a counselor regularly and is currently attending weekly sessions. Hot flashes: The patient has been experiencing hot flashes since January, which have been worsening and interfering with her daily life. She has not been taking trazodone due to the hot flashes causing night sweats. no fhx of breast cancer. hx of embolism R hand and per pt hx of stroke Palpitations: The patient reports episodes of rapid heart rate lasting about 30 seconds, occurring more frequently recently and sometimes multiple times a day. No chest pain or lightheadedness associated with palpitations - The patient is due for a screening mammogram and colonoscopy. - Aunt from anal cancer - The patient is on Social Security and has lost her medicaid insurance to cover 20%, affecting her access to healthcare and medications. - The patient recently acquired a treadmill to help with exercise. GIFTY MONROE PA-C [address], [place], [address], [facility]. 08/11/2023 11:27:32 09/10/2023 text/html HPI Notes: Alfred kamara presents for follow-up on mood, hot flashes, and evaluation of hypomagnesemia and abnormal blood chemistry. Hypomagnesemia: Patient has been taking magnesium daily in a gel cap form for a couple of weeks since her last visit. she has always had low mag and unable to tolerate tablets. Creatinine was elevated so we had her stop meloxicam 7.5mg BID. she drinks a lot of water throughout the day more than 64 ounces per day. Hot flashes: Patient reports an improvement in hot flashes after taking vitamin E and getting an air conditioner. They are still present but less severe. Mood concerns: Patient reports her mood as being fine and no worse. She denies having any thoughts of harming herself. She is seeing counselor every 2 weeks. she is open to seeing [facility] [employer]. Lower back pain and sciatica-like symptoms: Patient experiences lower back pain and sharp, shooting pain down her right leg when walking or standing. Pain and tingling disappear when at rest. No loss of bowel or bladder control, saddle anesthesia, fever, or foot dragging on the ground. - Scheduled mammogram for October - Patient is on Medicare but doesn't have Medicaid anymore. She is unsure about the coverage of her [facility] insurance. GIFTY MONROE PA-C [address], [place], [address], [facility]. 09/10/2023 14:30:10 OBGyn Episode No OBEpisode recorded.
--- OUTSIDE RECORDS SUMMARY | 2023-09-10 14:47 | XMS_ITS | Referral Summary ---
Author Organization [facility] Address [address] [place] [address] Care Team Providers Care Surveillance Manager Name Role Phone Unknown, Provider Primary Care Provider Social History Tobacco Use Types Packs/Day Years Used Date Smoking Tobacco: Never Assessed Interpersonal Safety Answer Date Record ed Physically Hurt Never 02/06/2020 Verbally Threaten Not on file 02/06/2020 Sex and Gender Information Value Date Recorded Sex Assigned at Not on file Gender Identity Not on file Sexual Orientation Not on file Plan of Treatment Not on file Care Teams Surveillance Manager Relationship Specialty Start Date End Date Unknown, Provider, PCP - General 05/23/21
--- OUTSIDE RECORDS SUMMARY | 2023-09-10 14:47 | XMS_ITS | Continuity of Care Document ---
Author Organization [facility] Address [address] [place] [address] Care Team Providers Care Online Merchandising Manager Name Role Phone GIFTY MONROE Primary Care Provider [phone] Assessment No assessment recorded. Plan of Treatment Reminders Order Date Submit Date Provider Last Modified By Organization Details Last Modified Time Details Appointments Follow Up 2023 10:30A Maricruz MONROE Not available Not available Not available Follow Up 2023 10:00A Maricruz MONROE Not available Not available Not available Lab magnesium , serum or plasma 2023 024 [facility] (Registration ), [address] [place] [address] [place], [address], 09/10/2023 11:20:35 CMP, serum or plasma 2023 024 [facility] (Registration ), [address] [place] [address] [place], [address], 09/10/2023 11:20:37 Referral physical therapist referral 2023 024 [email or web address] [facility] Physical Therapy[address] , [facility], [place], [address], 09/10/2023 14:28:21 psychiatr ist referral - referral for depressio n. pt on max wellbutri n. tried adding prozac at 10mg but she didnt like how it made her feel. currently no SI or HI. pt sees counselor every 2 weeks. her symptoms worsen in the winter. 2023 024 Nat Cano coin counter and wrapper, [address] [facility], [place], [address], 09/10/2023 14:35:46 Procedures None recorded. Surgeries None recorded. Imaging None recorded. Medication Orders None recorded. Patient TargetsNo targets recorded. Patient Instructions Encounter Date Encounter Id Patient Instructions Last Modified By Organization Details Last Modified Time 09/10/2023 [id number] call [place] [facility] to discuss secondary insurance to cover the 20% that medicare does not continue with vitamin E and magnesium supplement You had blood work done today. Please allow up to 2 weeks to hear about results. continue with counselor A referral has been placed for Nat Cano md psychiatry here. If you do not receive a call to schedule an appointment in 7-10 days, please contact our marketing support coordinator at A referral has been placed for {{Allergy Audiolo gy Bariatric Card iology Colonoscop y Customer Experience Intern Endoc rinology ENT [place] roenterology Gene ral Surgery Genetics Hematology/Oncolo gy Nephrology Carmen rology PATTERNMAKER METAL Opt ometry/Ophthalmol ogy Orthopedics [facility] Physical Therapy* Podiatry Psychiatry Pulmo nology Rheumatolo gy Sleep Clinic Spine Clinic Urology Va scular Surgery}} at {{[facility] ([facility])* [facility] ([facility]) [facility] ([facility]) [facility] ([facility]) [facility] ([facility]) [facility] ([facility]) [facility]}}. If you do not receive a call to schedule an appointment in 7-10 days, please contact our marketing support coordinator at Call with any questions or concerns [email or web address] Not available 09/10/2023 10:51:23 Reason for Referral Psychiatrist Referral for Mo derate recurrent major depression referral for depression. pt on max wellbutrin. tried adding prozac at 10mg but she didnt like how it made her feel. currently no SI or HI. pt sees counselor every 2 weeks. her symptoms worsen in the winter. Referring Physician: Gifty Monroe [facility], Encounter Date: 09/10/2023 Physical Therapist Referral for Low back pain co-occurrent with neuralgia of right sciatic nerve Referring Physician: [facility], Encounter Date: 09/10/2023 Problems Name Status Onset Date Resolution Date Notes Provider Name and Address Organization Details Recorded Time Nicotine dependence Completed 201301/21/2023 07/23/2022 - Comments only - Gifty Monroe PA - In September 2022 patient will be smoke-free for 1 year. Congratulated patient and keep up the good work. Problem Code: Z87.891; Problem Code Type: ICD-10; GIFTY MONROE PA-C [address], [place], [address] , [facility] 3 11:43:45 Neuralgia Completed 201301/21/2023 05/27/2017 - Comments only - Duncan Paul MD - Now off opiates, continues on low-dose gabapentin. GIFTY MONROE PA-C [address], [place], [address] , [facility] 3 11:43:24 Essential hypertension Active 2014 Tami edwards [facility] 4 14:29:38 Chronic pancreatitis Active 2015 Chronic recurrent pancreatitis -- Idiopathic Tami edwards [facility] 4 14:29:04 Chronic pain Completed 201510/03/2015 Problem Code: G89.29; Problem Code Type: ICD-10; Not Available [facility] 3 04:16:56 Nausea Completed 201501/21/2023 09/17/2020 - [...] Problem Code Type: ICD-10; GIFTY MONROE PA-C [facility] [address], [place], [address] , [facility] 3 11:43:24 Moderate recurrent major depression Active 2015 [facility] 4 14:41:05 Gastroparesis syndrome Active 2015 [facility] 4 14:29:54 Increased frequency of urination Completed 201501/23/2016 Problem Code: R35.0; Problem Code Type: ICD-10; Not Available [facility] 3 04:16:57 High enzyme level in serum Active 2016 Elevated liver enzymes [facility] 4 14:30:39 Adult health examination Active 2016 [facility] 4 14:27:08 Dehiscence of external surgical incision wound Completed 201606/26/2016 Problem Code: T81.31xA; Problem Code Type: ICD-10; Not Available [facility] 3 04:16:57 Diarrhea Active 2016 [facility] 4 14:29:26 Impacted cerumen in right ear Completed 201611/24/2016 10/13/2016 - Comments only - Marcus Robbins PA-C - Irrigated by nursing staff. Resolution of symptoms. Recheck as needed. Problem Code: H61.21; Problem Code Type: ICD-10; Not Available [facility] 3 04:16:57 Panic disorder Active 2017 [facility] 4 14:41:32 Lichen simplex chronicus Active 2017 [facility] 4 14:40:05 History of thromboemboli sm Active 2019 History of blood clots Tami edwards [facility] 4 14:36:37 Impacted cerumen in right ear Completed 201908/17/2019 08/15/2019 - Comments only - Gifty WELCH - -Wax removed with ear irrigation with warm water and hydrogen peroxide. Patient tolerated well. Her hearing is better and the pain is much improved since having the wax removed. No signs or symptoms of infection. Problem Code: H61.21; Problem Code Type: ICD-10; Not Available [facility] 3 04:16:58 Disorder of the peripheral nervous system Completed 201901/21/2023 05/30/2021 - Comments only - Gifty WELCH - Refill of gabapentin 40 mg 2 capsules at bedtime. Problem Code: G64; Problem Code Type: ICD-10; GIFTY MONROE PA-C [address], [place], [address] , [facility] 3 11:43:24 Hypomagnesemi a Active 2019 Tami edwards [facility] 4 14:38:33 Exposure to communicable disease Completed 201902/03/2020 Problem Code: Z20.828; Problem Code Type: ICD-10; Not Available [facility] 3 04:16:58 Pain of right knee joint Completed 202101/21/2023 03/28/2021 - Comments only - Gifty WELCH - Offered for patient to have an x-ray but she wants to hold off for right now. Continue with conservative treatment Problem Code: M25.561; Problem Code Type: ICD-10; GIFTY MONROE PA-C [address], [place], [address] , [facility] 3 11:43:24 Screening mammography Completed 202105/31/2021 05/30/2021 - Comments only - Gifty WELCH - Order sent to [facility] radiology Problem Code: Z12.31; Problem Code Type: ICD-10; Not Available [facility] 3 04:16:59 Follicular cysts of skin and subcutaneous tissue Completed 202105/31/2021 05/30/2021 - Comments only - Gifty WELCH - Referral to [facility] general surgery for excision of cyst Problem Code: L72.9; Problem Code Type: ICD-10; Not Available [facility] 3 04:16:59 Menopause present Active 2021 Hot flashes NUSRAT Tee [facility] 4 14:40:31 Condyloma acuminatum of the anogenital [...] A63.0; Problem Code Type: ICD-10; Not Available [facility] 3 04:16:59 Overweight Completed 202207/24/2022 Problem Code: E66.3; Problem Code Type: ICD-10; Not Available [facility] 3 04:17:00 Screening mammography Completed 202207/24/2022 Problem Code: Z12.31; Problem Code Type: ICD-10; Not Available [facility] 3 04:17:00 Pain of right upper arm Active 2022 NUSRAT Tee [facility] 4 14:41:23 Tobacco dependence caused by cigarettes Completed 201311/18/2022 03/26/2022 - Comments only - Gifty WELCH - Patient continues to be smoke-free. Keep up the good work. Problem Code: F17.210; Problem Code Type: ICD-10; Not Available [facility] 3 04:17:02 Arterial embolus and thrombosis Completed 201301/28/2015 Problem Code: 444.89; Problem Code Type: ICD-9; Not Available [facility] 3 04:17:02 Depressive disorder Completed 201301/28/2015 Not Available [facility] 3 04:17:02 Paresthesia Completed 201911/18/2022 03/20/2020 - Comments only - Gifty WELCH - Keep appointment with neurology as scheduled. Problem Code: R20.2; Problem Code Type: ICD-10; Not Available [facility] 3 04:17:02 Severe recurrent major depression without psychotic features Completed 201511/18/2022 08/26/2019 - Comments only - Chantal Sanchezarceliaaziza DAMION - Partial improvement but she still has Symptoms of mood /depression. PHQ-9 score -=12 today. She contineu on Mirtazapine and has a community counselor. Recent pain has interefered with sleep. Hadnt had BH follow up since March, as covid was starting. Agrees to more regular follow up to work on better stabilizing mood symptoms. Problem Code: F33.2; Problem Code Type: ICD-10; Not Available [facility] 3 04:17:03 Benign neoplasm of colon Completed 202011/18/2022 03/20/2020 - Comments only - Gifty WELCH - Repeat: Colonoscopy in 3 years. Problem Code: D12.6; Problem Code Type: ICD-10; Not Available [facility] 3 04:17:03 Carpal tunnel syndrome of left wrist Completed 201405/09/2019 Problem Code: G56.02; Problem Code Type: ICD-10; Not Available [facility] 3 04:17:03 Elevated blood-pressur e reading without diagnosis of hypertension Completed 201411/18/2022 Problem Code: R03.0; Problem Code Type: ICD-10; Not Available [facility] 3 04:17:03 Acute kidney injury Completed 201511/18/2022 Problem Code: N17.9; Problem Code Type: ICD-10; Not Available [facility] 3 04:17:04 Pancreatitis Completed 201511/18/2022 Not Available [facility] 3 04:17:05 Recurrent major depression Completed [...] F33.9; Problem Code Type: ICD-10; Not Available [facility] 3 04:17:05 Nicotine dependence in remission Active 2022 GIFTY MONROE PA-C [address], [place], [address] , [facility], [facility] 3 11:45:06 Pain of left elbow joint Active 2022 [facility], [facility]. 4 14:43:35 Laparoscopic- assisted vaginal hysterectomy Active 2013 Problem Code: Z90.710; Problem Code Type: ICD-10; Tami Olivas [facility], [facility]. 4 14:26:54 History of adenomatous polyp of colon Active 2020 repeat colonoscopy 02/2023 per [facility]. 4 14:31:46 History of acute kidney injury Active 2015 Problem Code: Z87.448; Problem Code Type: ICD-10; [facility], [facility]. 4 14:38:05 Peripheral arterial disease Active 2013 Peripheral artery disease -- embolism rt hand 2012 [facility] 4 14:43:01 Vaginal hysterectomy Completed 201305/03/2013 Removal Reason: [facility] 14:45:07 Ex-smoker Completed 201305/03/2013 Ex-smoker, 25 P-y , Quit 2013 Removal Reason: inactive Tami edwards [facility] 4 14:46:49 Serum creatinine above reference range Active 2023 GIFTY MONROE PA-C [address], [place], [address] , [facility] 4 15:53:55 Low back pain co-occurrent with neuralgia of right sciatic nerve Active 2023 GIFTY MONROE PA-C [address], [place], [address] , [facility] 4 14:27:40 Problem Notes None recorded. [...] nausea, take if the zofran is ineffect zachary 2020 active started by [facility] on 06/02 Not Available Not Available [...] 04/[address] Emmie Hernandez at [facility] Not Available Not Available Not Available B [...] Updated DateTime 4 165.1 cm 26.8 kg/m2 13340.0 5 g 96 % 96 % 58 /min 110 mm[Hg] 70 mm[Hg] Aj Wallace RN [facility] 4 10:23:20 Social History Question Answer Notes LastModified by Organizat ion Details LastModified Time Tobacco Smoking Status Former Smoker [place] [facility] 01/21/2023 09:51:59 When Did You Quit Smoking? [...] Recorded Time Tdap 05/07/2014 completed Not Available [facility] 05:13:18 Influenza, split virus, trivalent, preservative 11/21/2015 completed Not Available [facility] 01/01/2023 05:13:20 Influenza, split virus, trivalent, preservative 01/28/2015 completed Not Available [facility] 01/01/2023 05:13:20 Influenza, split virus, quadrivalent, PF 02/19/2022 completed Not Available [facility] 01/01/2023 05:13:20 Influenza, split virus, quadrivalent, preservative 04/14/2017 completed Not Available [facility] 01/01/2023 05:13:21 zoster recombinant 07/23/2022 completed Not Available [facility] 01/01/2023 05:13:22 pneumococcal polysaccharide PPV23 04/14/2017 completed Not Available [facility] 2022 05:13:24 influenza, unspecified formulation 2018 completed Not Available [facility] 01/01/2023 05:13:26 Past Encounters Encounter ID Performer Location Encounter Start Date Encounter Closed Date Diagnosis/Indication Diagnosis SNOMED-CT Code [id number] GIFTY MONROE PA-C [address] [address] 08/11/2023 09:37:33 08/11/2023 10:50:57 Essential hypertension 03612645 Overweight 199910643 Screening for malignant neoplasm of breast 611237948 Hypomagnesemia 652478533 Menopausal flushing 1984 [address]641 Palpitations 63306662 Moderate r ecurrent major depression 20638737 [id number] GIFTY MONROE PA-C [facility] [address] [place] [address] 09/10/2023 09:56:20 09/10/2023 11:15:51 Hypomagnesemia 354122510 Serum crea tinine above reference range 250716260 Low back p ain co-occurrent with neuralgia of right sciatic nerve 173518895526984 Menopausal flushing 1984 76731 Moderate r ecurrent major depression 03361551 Health Concerns Section Related Observation LastModified by Organization Detai ls LastModified Time None Recorded Concern Status LastModified by Organization Details LastModified Time None Recorded Payers Encounter Date Sequence Insurance Name Policy Number Policy Stallworth Covered Member ID Stallworth Member ID Guarantor Name 09/10/2023 1 [place] [employer] Elaina Bangura [id number] Elaina Bangura Notes Date Note Type Note Provider Name and Address Organization Details Recorded Time 09/10/2023 text/html HPI Notes: Alfred kamara presents [...] weeks. she is open to seeing Nat Cheng NP. Lower back pain and sciatica-like symptoms: Patient [...] is unsure about the coverage of her [facility] insurance. [address], [place], [address], [facility]. 09/10/2023 14:30:10 OBGyn Episode No OBEpisode recorded.
--- OUTSIDE RECORDS SUMMARY | 2023-09-10 14:47 | XMS_ITS | Continuity of Care Document ---
Author Organization [place] [facility] Address [address] [place] [address] Care Team Providers Care Conflict Resolution Professional Name Role Phone GIFTY MONROE Primary Care [...] magnesium , serum or plasma 2023 024 [email or web address] [facility] (Registration ), [address] [place] [address] [place], [address], 08/12/2023 07:56:51 CMP, serum or plasma 2023 024 [email or web address] [facility] (Registration ), [address] [place] [address] [place], [address], 08/11/2023 20:22:39 Referral None recorded. Procedures None recorded. Surgeries None recorded. Imaging MAMMO, screening , bilateral 2023 024 [email or web address] [facility], [address], [place], [address], 09/10/2023 08:23:04 Medication Orders None recorded. Patient TargetsNo targets recorded. Patient Instructions Encounter Date Encounter Id Patient Instructions Last Modified By Organization Details Last Modified Time 08/11/2023 [id number] diet [email or web address] Not available 08/10 10:39:40 exercise [email or web address] Not available 2023 10:39:40 {{[facility] ([facility])* Marlo frost [facility] ([facility]) [facility] ([facility]) [facility] ([facility]) [facility] ([facility]) [facility] ([facility]) [facility]}} will contact you to schedule {{bone density CT scan Heart Monitor mammogram * MRI Ultrasound Stress Test Xray}}. If you do not receive a call in 7-10 days please contact the office. talk to [facility] about getting on their sliding scale to [...] continue with counseling continue to hold the prozac Call with any questions or concerns [email or web address] Not available 08/11/2023 10:43:24 Reason for Referral Psychiatrist Referral for Mo derate recurrent major depression referral for depression. pt on max wellbutrin. tried adding prozac at 10mg but she didnt like how it made her feel. currently no SI or HI. pt sees counselor every 2 weeks. her symptoms worsen in the winter. Referring Physician: [facility], Encounter Date: 09/10/2023 Physical Therapist Referral for Low back pain co-occurrent with neuralgia of right sciatic nerve Referring Physician: [facility], Encounter Date: 09/10/2023 Problems Name Status Onset Date Resolution Date Notes Provider Name and Address Organization Details Recorded Time Nicotine dependence Completed 201301/21/2023 07/23/2022 - Comments only - Gifty WELCH - In September 2022 patient will be smoke-free for 1 year. Congratulated patient and keep up the good work. Problem Code: Z87.891; Problem Code Type: ICD-10; [address], [place], [address] , [facility] 3 11:43:45 Neuralgia Completed 201301/21/2023 05/27/2017 - Comments only - Duncan Paul MD - Now off opiates, continues on low-dose gabapentin. [address], [place], [address] , [facility] 3 11:43:24 Essential hypertension Active 2014 Tami edwards, [facility] 4 14:29:38 Chronic pancreatitis Active 2015 Chronic recurrent pancreatitis -- Idiopathic Tami edwards, [facility] 4 14:29:04 Chronic pain Completed 201510/03/2015 Problem Code: G89.29; Problem Code Type: ICD-10; Not Available [facility] 3 04:16:56 Nausea Completed 201501/21/2023 09/17/2020 [...] Problem Code: R11.0; Problem Code Type: ICD-10; [address], [place], [address] , [facility] 3 11:43:24 Moderate recurrent major [facility] 4 14:[facility]:05 Gastroparesis syndrome Active 2015 [facility] 4 14:29:54 Increased frequency of urination Completed 201501/23/2016 Problem Code: R35.0; Problem Code Type: ICD-10; Not Available [facility] 3 04:16:57 High enzyme level in serum Active 2016 Elevated liver enzymes [facility] 4 14:30:39 Adult health examination Active 2016 [facility] 4 14:27:08 Dehiscence of external surgical incision wound Completed 201606/26/2016 Problem Code: T81.31xA; Problem Code Type: ICD-10; Not Available [facility] 3 04:16:57 Diarrhea Active 2016 [facility] 4 14:29:26 Impacted cerumen in right ear Completed 201611/24/2016 10/13/2016 - Comments only - Marcus Robbins PA-C - Irrigated by nursing staff. Resolution of symptoms. Recheck as needed. Problem Code: H61.21; Problem Code Type: ICD-10; Not Available [facility] 3 04:16:57 Panic disorder Active 2017 [facility] 4 14:41:32 Lichen simplex chronicus Active 2017 Neurodermatit is [facility] 4 14:40:05 History of thromboemboli sm Active 2019 History of blood clots [facility] 4 14:36:37 Impacted cerumen in right ear Completed 201908/17/2019 08/15/2019 - Comments only - Gifty WELCH - -Wax removed with ear irrigation with warm water and hydrogen peroxide. Patient tolerated well. Her hearing is better and the pain is much improved since having the wax removed. No signs or symptoms of infection. Problem Code: H61.21; Problem Code Type: ICD-10; Not Available [facility] 3 04:16:58 Disorder of the peripheral nervous system Completed 201901/21/2023 05/30/2021 - Comments only - Gifty WELCH - Refill of gabapentin 40 mg 2 capsules at bedtime. Problem Code: G64; Problem Code Type: ICD-10; [address], [place], [address] , [facility] 11:43:24 Hypomagnesemi a Active [address] [facility] 4 14:38:33 Exposure to communicable disease Completed 201902/03/2020 Problem Code: Z20.828; Problem Code Type: ICD-10; Not Available [facility] 3 04:16:58 Pain of right knee joint Completed 202101/21/2023 03/28/2021 - Comments only - Gifty WELCH - Offered for patient to have an x-ray but she wants to hold off for right now. Continue with conservative treatment Problem Code: M25.561; Problem Code Type: ICD-10; [address], [place], [address] , [facility] 3 11:43:24 Screening mammography Completed 202105/31/2021 05/30/2021 - Comments only - Gifty WELCH - Order sent to [facility] radiology Problem Code: Z12.31; Problem Code Type: ICD-10; Not Available [facility] 3 04:16:59 Follicular cysts of skin and subcutaneous tissue Completed 202105/31/2021 05/30/2021 - Comments only - Gifty WELCH - Referral to [facility] general surgery for excision of cyst Problem Code: L72.9; Problem Code Type: ICD-10; Not Available [facility] 3 04:16:59 Menopause present Active [address] [facility] 4 14:40:31 Condyloma acuminatum of the anogenital [...] A63.0; Problem Code Type: ICD-10; Not Available [facility] 3 04:16:59 Overweight Completed 202207/24/2022 Problem Code: E66.3; Problem Code Type: ICD-10; Not Available [facility] 3 04:17:00 Screening mammography Completed 202207/24/2022 Problem Code: Z12.31; Problem Code Type: ICD-10; Not Available [facility] 3 04:17:00 Pain of right upper arm Active [address] [facility] 4 14:41:23 Tobacco dependence caused by cigarettes Completed 201311/18/2022 03/26/2022 - Comments only - Gifty WELCH - Patient continues to be smoke-free. Keep up the good work. Problem Code: F17.210; Problem Code Type: ICD-10; Not Available [facility] 3 04:17:02 Arterial embolus and thrombosis Completed 201301/28/2015 Problem Code: 444.89; Problem Code Type: ICD-9; Not Available [facility] 3 04:17:02 Depressive disorder Completed 201301/28/2015 Not Available [facility] 3 04:17:02 Paresthesia Completed 07/17201911/18/2022 03/20/2020 - Comments only - Gifty WELCH - Keep appointment with neurology as scheduled. Problem Code: R20.2; Problem Code Type: ICD-10; Not Available [facility] 3 04:17:02 Severe recurrent major depression without [...] F33.2; Problem Code Type: ICD-10; Not Available [facility] 3 04:17:03 Benign neoplasm of colon Completed 202011/18/2022 03/20/2020 - Comments only - Gifty WELCH - Repeat: Colonoscopy in 3 years. Problem Code: D12.6; Problem Code Type: ICD-10; Not Available [facility] 3 04:17:03 Carpal tunnel syndrome of left wrist Completed 201405/09/2019 Problem Code: G56.02; Problem Code Type: ICD-10; Not Available [facility] 3 04:17:03 Elevated blood-pressur e reading without diagnosis of hypertension Completed 201411/18/2022 Problem Code: R03.0; Problem Code Type: ICD-10; Not Available [facility] 3 04:17:03 Acute kidney injury Completed 201511/18/2022 Problem Code: N17.9; Problem Code Type: ICD-10; Not Available [facility] 3 04:17:04 Pancreatitis Completed 201511/18/2022 Not Available [facility] 3 04:17:05 Recurrent major depression Completed 201511/18/2022 [...] F33.9; Problem Code Type: ICD-10; Not Available [facility] 3 04:17:05 Nicotine dependence in remission Active 2022 GIFTY MONROE PA-C [facility] [address] [place], [address] [facility] 3 11:45:06 Pain of left elbow joint Active 2022 [facility] 4 14:43:35 Laparoscopic- assisted vaginal hysterectomy Active 2013 Problem Code: Z90.710; Problem Code Type: ICD-10; [facility] 4 14:26:54 History of adenomatous polyp of colon Active 2020 repeat colonoscopy 02/2023 per GI [facility] 4 14:31:46 History of acute kidney injury Active 2015 Problem Code: Z87.448; Problem Code Type: ICD-10; [facility] 4 14:38:05 Peripheral arterial disease Active 2013 Peripheral artery disease -- embolism rt hand 2012 [facility] 4 14:43:01 Vaginal hysterectomy Completed 201305/03/2013 Removal Reason: Vag Hyst For Menorrhagia [facility] 4 14:45:07 Ex-smoker Completed 201305/03/2013 Ex-smoker, 25 P-y , Quit 2013 Removal Reason: inactive aTmi Olivas null, [facility] 4 14:46:49 Serum creatinine above reference range Active 2023 GIFTY MONROE PA-C [address], [facility] [address] , [facility] 4 15:53:55 Low back pain co-occurrent with neuralgia of right sciatic nerve Active 2023 GIFTY MONROE PA-C [address], [facility] [address] , [facility] 4 14:27:40 Problem Notes None [...] is ineffect zachary 2020 active started by [facility] ER on 06/02 Not Available Not Available [...] 04/[address] Emmie Hernandez at [facility] Not Available Not Available Not Available B [...] Updated DateTime 4 165.1 cm 26.5 kg/m2 47778.2 9 g 96.7 [degF] 18 /min 97 % 97 % 60 /min 130 mm[Hg] 80 mm[Hg] ELSA MERLOS LPN [facility] 4 10:02:38 Social History Question Answer Notes LastModified by Organizat ion Details LastModified Time Tobacco Smoking Status Former Smoker REAL SHELDON, [facility] 01/21/2023 09:51:59 When Did You Quit [...] Recorded Time Tdap 05/07/2014 completed Not Available [facility] 05:13:18 Influenza, split virus, trivalent, preservative 11/21/2015 completed Not Available [facility] 01/01/2023 05:13:20 Influenza, split virus, trivalent, preservative 01/28/2015 completed Not Available [facility] 01/01/2023 05:13:20 Influenza, split virus, quadrivalent, PF 02/19/2022 completed Not Available [facility] 01/01/2023 05:13:20 Influenza, split virus, quadrivalent, preservative 04/14/2017 completed Not Available [facility] 01/01/2023 05:13:21 zoster recombinant 07/23/2022 completed Not Available [facility] 01/01/2023 05:13:22 pneumococcal polysaccharide PPV23 04/14/2017 completed Not Available [facility] 2022 05:13:24 influenza, unspecified formulation 2018 completed Not Available [facility] 01/01/2023 05:13:26 Past Encounters Encounter ID Performer Location Encounter Start Date Encounter Closed Date Diagnosis/Indication Diagnosis SNOMED-CT Code [id number] GIFTY MONROE PA-C [address] [address] 08/11/2023 09:37:33 08/11/2023 10:50:57 Essential hypertension 27877541 Overweight 064834940 Screening for malignant neoplasm of breast 527756467 Hypomagnesemia 144394673 Menopausal flushing 1984 00589 Palpitations 19698955 Moderate r ecurrent major depression 24277449 Health Concerns Section Related Observation LastModified by Organization Detai ls LastModified Time None Recorded Concern Status LastModified by Organization Details LastModified Time None Recorded Payers Encounter Date Sequence Insurance Name Policy Number Policy Stallworth Covered Member ID Stallworth Member ID Guarantor Name 08/11/2023 1 [place]ARE [place]: [employer] Elaina Bangura [id number] Elaina Bangura Notes Date Note Type Note Provider Name and Address Organization Details Recorded Time 08/11/2023 text/html HPI Notes: Alfred kamara presents [...] acquired a treadmill to help with exercise. [address], [place], [address], [place] [facility]. 08/11/2023 11:27:32 OBGyn Episode No OBEpisode recorded.
--- OUTSIDE RECORDS SUMMARY | 2023-09-10 14:48 | XMS_ITS | Encounter Summary ---
Author Organization [facility] [place] [address] Care Team Providers Care Drop Wire Hanger Name Role Phone Viviana Chandler MD Primary Care Provider [phone] Encounter Details Date Type Department Care Team (Late st Contact Info) Description 04/27/2013 Orders Only Internal Medicine at [address] [address] Chantal Campbell, RN Social History Tobacco Use Types Packs/Day Years Used Date Smoking Tobacco: Some Days Cigarettes Smokeless Tobacco: Never Comments:on occassion Alcohol Use Standard Drinks/Week Comments Yes 0 (1 standard drink = 0.6 oz pur e alcohol) rarely Sex and Gender Information Value Date Recorded Sex Assigned at Not on file Gender Identity Not on file Sexual Orientation Not on file documented as of this encounter Plan of Treatment Not on file documented as of this encounter Visit Diagnoses Not on filedocumented in this encounter Care Teams Drop Wire Hanger Relationship Specialty Start Date End Date Viviana Chandler MD [facility] [address] [facility] [place] [address] PCP - General 04/03/13 10/02/15 documented as of this encounter
--- OUTSIDE RECORDS SUMMARY | 2023-09-10 14:48 | XMS_ITS | Encounter Summary ---
[place] [address] Care Team Providers Care Cupboard Builder Name Role Phone Jamaica Segal Primary Care Provider [phone] Reason for Visit * Reason Onset Date Comments Other 01/23/2013 Encounter Details Date Type Department Care Team (Late st Contact Info) Description 01/23/2013 Telephone Internal Medicine at [place] [id number] Rissa Phillips RN Other Social History Tobacco Use Types Packs/Day Years Used Date Smoking Tobacco: Every Day Cigarettes 0.5 25 Smokeless Tobacco: Never Alcohol Use Standard Drinks/Week Comments Yes 0 (1 standard drink = 0.6 oz pur e alcohol) rarely Sex and Gender Information Value Date Recorded Sex Assigned at Not on file Gender Identity Not on file Sexual Orientation Not on file documented as of this encounter Miscellaneous Notes * Telephone Encounter - Rissa Phillips RN - 01/23/2013 11:36 AM EST Patient called to report that the Tramadol was not controlling pain in her cyanotic fingertip especially at night. She is wearing a sling to prevent accidental bumping. [place] Segal approved Vicodin with no refills, patient understands that this is short-term pain control and she needs to make a dec ision regarding surgery before prescription runs out. She understands this and will contact Vascular clinic before running out of medication. Reviewed side effects, including lightheadedness alfie at night, constipation, nausea, rash. documented in this encounter Plan of Treatment Not on file documented as of this encounter Visit Diagnoses Not on filedocumented in this encounter Care Teams Cupboard Builder Relationship Specialty Start Date End Date Jamaica Segal PA [facility] [address] PCP - General 01/13/13 04/02/13 documented as of this encounter
--- OUTSIDE RECORDS SUMMARY | 2023-09-10 14:48 | XMS_ITS | Encounter Summary ---
[place] [address] Care Team Providers Care Geothermal Technician Name Role Phone Duncan Paul MD Primary Care Provider Reason for Visit * Auth/Cert Specialty Diagnoses / Procedures Referred By Sulaiman reyes Referred To Contact Diagnoses Pancreatitis Procedures PRO UPPER GI ENDOSCOPY, DIAGNOSTIC PRO ENDOSCOPIC US EXAM, ESOPH PRO ANESTH, UGI ENDOSCOPY EGD, UPPER GI ENDOSCOPY UPPER EUS- ENDOSCOPIC ULTRASOUND Referral ID Status Reason Start Date Expiration Date Visits Re quested Visits Authorized [id number] 1 1 Encounter Details Date Type Department Care Team (Late st Contact Info) Description 12/03/2015 8:00 AM EDT - 12/03/2015 9:30 AM EDT [place] [address] Cayden Mccann MD [facility] [place] [address] EGD, UPPER GI ENDOSCOPY (WRVU 2.09) Social History Tobacco Use Types Packs/Day Years Used Date Smoking Tobacco: Every Day Cigarettes Smokeless Tobacco: Never Comments:on occassion Alcohol Use Standard Drinks/Week Comments No 0 (1 standard drink = 0.6 oz pur e alcohol) Sex and Gender Information Value Date Recorded Sex Assigned at Not on file Gender Identity Not on file Sexual Orientation Not on file documented as of this encounter Last Filed Vital Signs Vital Sign Reading Time Taken Comments Blood Pressure 126/81 12/03/2015 9:30 AM EDT Pulse 78 12/03/2015 7:06 AM EDT Temperature - - Respiratory Rate 15 12/03/2015 9:13 AM EDT Oxygen Saturation 96% 12/03/2015 9:30 AM EDT Inhaled Oxygen Concentration - - Weight 72.6 kg (160 lb) 12/03/2015 7:06 AM EDT Height 165.1 cm (5' 5) 12/03/2015 7:06 AM EDT Body Mass Index 26.63 12/03/2015 7:06 AM EDT documented in this encounter Discharge Instructions * Discharge Instructions* Norman Burns RN - 12/03/2015 9:46 AM EDT Upper Endoscopic Ultrasound ( EUS) EUS- a test to look for problems in the stomach, liver, gallbladder, and other organs After the test you may feel more gassy than usual. This normal Activity Because of the sedation that you received Your judgement and reaction time are affected ?? Go home and rest quietly for the remainder of the day. You may resume your normal activities tomorrow. ?? Change from one position to the next slowly. You may lose your balance unexpectedly ?? Be careful on stairs, as you may be unsteady on your feet. FOR THE NEXT 24 HRS ?? DO NOT DRIVE OR OPERATE ANY MACHINERY ?? DO NOT DRINK ALCOHOLIC BEVERAGES ?? DO NOT SIGN LEGAL DOCUMENTS ?? If you are a smoker: DO NOT SMOKE WHILE YOU ARE ALONE Diet ?? Start with liquids and progress to small portions of foods that are least likely to upset your stomach. Be gentle with what you choose to start with. Avoid gas producing foods for the next few days ?? Drink plenty of fluids ( unless your doctor has told you not to) Medicines you You may have a sore throat for a day or two after the test. You may use ice chips, popsicles, [id number]-luw-[id number] throat lozenges or sprays that may help numb your throat. IV SITE-- slight redness or tenderness is normal, you can use warm compresses if you get concerned.If the tenderness +/or redness increases or foul drainage and a red streak occurs, please contact your PCP immediately. When should call for help? Call 911 anytime you think you may need emergency care. For example, call if: You passed out ( lost consciousness) You cough up blood You vomit blood that looks like coffee grounds You pass maroon or very bloody stools Call you Doctor now You have trouble swallowing Throat, chest, abdominal pain that worsens after taking a dose of pain medicine Bloody or dark stools Vomit and are unable to hold fluids Fever Watch closely for any changes in your health, and be sure to contact your doctor if: Your throat still hurts after a day or two You do not get better as expected Wednesday-Wednesday Same Day Endo [phone] [id number]-[id number] Otherwise contact [phone] and ask to speak to the metal fence erector paper conservator The patient reports understanding discharge instructions documented in this encounter Medications at Time of Discharge Medication Sig Dispensed Refills Start Date End Date gabapentin (NEURONTIN) 400 mg CapsuleIndications:Acut e biliary pancreatitis take 3 capsule nightly 12 08/17/2015 spironolactone (ALDACTONE) 50 mg TabletIndications:Acute biliary pancreatitis TAKE ONE TABLET BY MOUTH EVERY DAY 1 09/26/2015 HYDROcodone-acetaminoph en (NORCO) 7.5-325 mg TabletIndications:Acute biliary pancreatitis Reported on 05/21/2016 0 09/26/2015 06/01/2016 ondansetron (ZOFRAN, HYDROCHLORIDE,) 4 mg Tablet Take 1 tablet by mouth every 8 hours as needed for Nausea. 30 tablet 10/24/2015 02/28/2020 HYDROcodone-acetaminoph en 5-325 mg per tablet Take 1 tablet by mouth every 6 hours as needed for Pain. 30 tablet 0 04/12/2013 06/04/2016 ibuprofen (ADVIL;MOTRIN) 400 mg tablet Take 1-2 tablets by mouth every 8 hours as needed for Pain. 270 tablet 3 01/17/2013 06/01/2016 documented as of this encounter H&P Notes * Trever Elaine MD - 12/03/2015 8:01 AM EDT Patient Name: Elaina Bangura Patient Age: 45 y.o. Birthdate: 1970 Admit date: 12/03/2015 Attending Physician: Cayden Mccann MD . Gastroenterology and Hepatology Pre-Procedure History and Physical Exam Procedure: ERCP: EUS: Indication:pancreatitis, abnormal biliary imaging, possible stricture Patient Active Problem List Diagnosis Code ??? Depression F32.9 ??? PAD (peripheral artery disease) I73.9 ??? Cyanotic fingertip R23.0 EXAM: HEENT: Airway examined, oropharynx clear Mallampati Score: II (soft palate, uvula, fauces visible) Per anesthesia report A/P Proceed with the planned endoscopic procedure. ASA 2 - Patient with mild systemic disease with no functional limitations Sedation Plan: anesthesia Risks and benefits of the procedure explained to the patient. Consent signed. documented in this encounter Plan of Treatment Not on file documented as of this encounter Procedures Procedure Name Priority Date/Time Associated Diagnosis Comments SURGICAL PATHOLOGY REPORT Routine 12/03/2015 9:08 AM EDT SPECIMEN TO PATHOLOGY Routine 12/03/2015 9:08 AM EDT UPPER EUS- ENDOSCOPIC ULTRASOUND (WRVU 3.47) 12/03/2015 8:12 AM EDT Pancreatitis - CONSULT EGD, UPPER GI ENDOSCOPY (WRVU 2.09) 12/03/2015 8:12 AM EDT Pancreatitis - CONSULT UPPER EUS-ENDOSCOPIC ULTRASOUND Routine 12/03/2015 7:35 AM EDT documented in this encounter Results * Surgical Pathology Report (12/03/2015 9:08 AM EDT) Surgical Pathology Report [id number] ? Location: 4T The signing pathologist has (i) examined the relevant preparation(s) for the specimen(s) and (ii) rendered or confirmed the diagnosis(es). . ?Surgical Pathology DIAGNOSIS Liver, ??biopsy: Moderate-severe steatosis with bile ductular injury and patchy active hepatitis. See discussion. Electronically signed by: ??Rafael SINGH PhD, Ramos Perez Verified: ??12/07/2015 ?Pathologist DISCUSSION Architecture: Steatosis in all zones. Portal areas: The portal tracts are fibrotic, with reactive bile ductules and bile ductular proliferation. The fibrosis appears to be centered on the bile ductules in many areas. There is a scant, mononuclear inflammatory infiltrate. Lobular areas: Macrovessicular steatosis with focal active hepatitis and pathcy pericentral accumulations of bile in hepatocytes and kupfer cells. Special studies: Trichrome stain demonstrates sinusoidal fibrosis (stage 2 fibrosis) as well as increased fibrous tissue in the portal areas. Iron stain shows faint, patchy hepatic iron storage as well as iron depoisition in kupfer cells. The differential diagnosis includes steatohepatitis, PBC, PSC, sclerosisng cholangitis secondary to long standing anatomical bile duct stricture, or a combination of any of the above. Clinical correlation is recommended. Whole slide scan: A1, Trichrome, iron. CLINICAL INFORMATION Specimen Submitted: A - Liver biopsy Clinical History: Elevated liver tests Clinical Diagnosis: Same SPECIMEN PROCESSING A - Labeled/Fixative: Liver biopsy, formalin. Quantity/Size: Three, 0.4 x 0.1 cm to 1.4 x 0.1 cm. Tissue Description: Wispy, tucker-brown core biopsies. Sections/Processin g: Totally submitted. (T1) ??pps [facility] 12/03/2015 9:08 AM EDT Cayden Mccann MD PATHOLOGY/CYTOLOGY ORDERABLES [facility] [place] [address] * Specimen to Pathology (surgical or derm) (12/03/2015 9:08 AM EDT) AP Specimen 12/03/2015 9:08 AM EDT 12/03/2015 9:08 AM EDT Narrative [facility] - 12/03/2015 9:08 AM EDT Specimen requisition ordered. ??Separate Pathology report to follow Cayden Mccann MD PATHOLOGY/CYTOLOGY ORDERABLES Performing Organization Address [facility]/ZIP Co de Phone Number [facility] [place] [address] * UPPER EUS-ENDOSCOPIC ULTRASOUND (12/03/2015 7:35 AM EDT) Pathologist [facility] UPPER ENDOSCOPIC ULTRASOUND [facility] Endoscopy Procedure Date: 12/03/2015 7:35 AM ? Patient Name: Elaina Bangura ? [facility]: [id number] ? Date of : 1970 ? Age: 45 ? Order #: [id number] ? Instrument Name: GF-UE [id number] ? Procedure: ? Upper EUS Indications: ? Abnormal abdominal/pelvic CT scan Providers: ? Cayden Mccann MD, Leonie Jolley, ? RN, Gris Nagel, Field Marketing Lead, ? Nazia Recinos, Trever Elaine MD Referring MD: ?Duncan Paul MD Medicines: ? General Anesthesia Complications: ? No immediate complications. Procedure: ? Pre-Anesthesia Assessment: ? - Prior to the procedure, a History ? and Physical was performed, and ? patient medications and allergies ? were reviewed. The patient is ? competent. The risks and benefits of ? the procedure and the sedation ? options and risks were discussed with ? the patient. All questions were ? answered and informed consent was ? obtained. Patient identification and ? proposed procedure were verified by ? the physician. Mental Status ? Examination: alert and oriented. ? Airway Examination: normal ? oropharyngeal airway and neck ? mobility. Respiratory Examination: ? clear to auscultation. CV ? Examination: normal. Prophylactic ? Antibiotics: The patient does not ? require prophylactic antibiotics. ? Prior Anticoagulants: The patient has ? taken no previous anticoagulant or ? antiplatelet agents. ASA Grade ? Assessment: II - A patient with mild ? systemic disease. After reviewing the ? risks and benefits, the patient was ? deemed in satisfactory condition to ? undergo the procedure. The anesthesia ? plan was to use general anesthesia. ? Immediately prior to administration ? of medications, the patient was ? re-assessed for adequacy to receive ? sedatives. The heart rate, ? respiratory rate, oxygen saturations, ? blood pressure, adequacy of pulmonary ? ventilation, and response to care ? were monitored throughout the ? procedure. The physical status of the ? patient was re-assessed after the ? procedure. ? The procedure, indications, benefits, ? risks and alternatives were explained ? to the patient. Specifically ? discussed were potential ? complications including, but not ? limited to, bleeding, perforation, ? infection, missing a cancer, and ? adverse medication reactions. The ? Endosonoscope was introduced through ? the mouth, and advanced to the third ? part of duodenum. The upper EUS was ? accomplished without difficulty. The ? patient tolerated the procedure well. ? Findings: ? Endoscopic Findings: : ? The examined esophagus was endoscopically normal. The ? GE junction was at 40 cm. ? The entire examined stomach was endoscopically ? normal. However there was copious food within the ? stomach which suggests that the patient had ? gastroparesis. ? The examined duodenum was endoscopically normal. ? There was no evidence of ampullary lesion. ? Endosonographic Findings: : ? There was no sign of significant endosonographic ? abnormality in the esophagus, stomach, duodenum or ? celiac axis. ? There was no sign of significant endosonographic ? abnormality in the ampulla. Specifically the CBD and ? PD tapered normally to the ampulla. ? There was no sign of significant endosonographic ? abnormality in the common bile duct. It measured 6 mm ? in maximum diameter. There were no stones or ? strictures noted. The gallbladder was normal in ? appearance. ? There was no sign of significant endosonographic ? abnormality in the left lobe of the liver. Fine ? needle biopsy was performed. Color Doppler imaging ? was utilized prior to needle puncture to confirm a ? lack of significant vascular structures within the ? needle path. One pass was made with the 22 gauge ? SHARKCORE ultrasound biopsy needle using a ? transgastric approach. A visible core of tissue was ? obtained. ? There was no sign of significant endosonographic ? abnormality in the pancreatic head, body or tail. ? Specifically, there was no inflammatory changes noted ? within the pancreas. The duct measured 1.8 mm in the ? head and tapered normally to the tail. ? No lymphadenopathy seen. ? Impression: ?- No evidence of pancreatic pathology ? - s/p liver biopsy ? - Food in the stomach to suggest ? gastroparesis Recommendation: ?- Await liver biopsy results ? Attending Participation: ? I personally performed the entire procedure. ? ___ Cayden Mccann MD 12/03/2015 9:11:03 AM This report has been signed electronically. Number of Addenda: 0 Note Initiated On: 12/03/2015 7:35 AM PROVATION 12/03/2015 7:35 AM EDT Duncan Paul MD GENERAL SURGICAL ORD ERABLES PROVATION documented in this encounter Visit Diagnoses Not on filedocumented in this encounter Administered Medications Inactive Administered Medications - up to 3 most recent administrations Medication Order MAR Action Action Date Dose Rate Site lactated ringers infusion 50 mL/hr, Intravenous, CONTINUOUS, Starting on Wed12/03/15 at 0730, Until Wed12/03/15 at 0947, Endoscopy (Day of Procedure) New Bag 12/03/2015 8:12 AM EDT New Bag 12/03/2015 7:33 AM EDT 50 mL/hr 50 mL/hr promethazine (PHENERGAN) injection 12.5 mg 12.5 mg, Intravenous, EVERY 30 MIN PRN, Nausea, Starting on Wed12/03/15 at 0919, 2 doses, Until Wed12/03/15 at 0947, If multiple antiemetics ordered, use ondansetron first and if ineffective use prochlorperazine second and if ineffective use promethazine, PACU Recovery Given 12/03/2015 9:23 AM EDT 12.5 mg documented in this encounter Active and Recently Administered Medications Times are shown in EDT. Continuous Medication Order 12/01/2015 12/02/2015 12/03/2015 lactated ringers infusion (CANCELED) 50 mL/hr, Intravenous, CONTINUOUS, Starting on Wed12/03/15 at 0730, Until Wed12/03/15 at 0947, Endoscopy (Day of Procedure) 0733 (New Bag - Prov ider: Teddy Heart RN)0812 (New Bag - Provider: Mingo Bond CRNA)0904 (Anesthesia Volume Adjustment - Provider: Mingo Bond CRNA) PRN Medication Order 12/01/2015 12/02/2015 12/03/2015 promethazine (PHENERGAN) injection 12.5 mg (CANCELED) 12.5 mg, Intravenous, EVERY 30 MIN PRN, Nausea, Starting on Wed12/03/15 at 0919, 2 doses, Until Wed12/03/15 at 0947, If multiple antiemetics ordered, use ondansetron first and if ineffective use prochlorperazine second and if ineffective use promethazine, PACU Recovery 0923 (Given - Provid er: Norman Burns RN) documented in this encounter Care Teams Geothermal Technician Relationship Specialty Start Date End Date Duncan Paul MD [address] [place] [id number] PCP - General General Internal Medicine 10/03/15 documented as of this encounter
--- OUTSIDE RECORDS SUMMARY | 2023-09-10 14:48 | XMS_ITS | Encounter Summary ---
[place] [address] Care Team Providers Care Physician President Name Role Phone Duncan Paul MD Primary Care Provider Encounter Details Date Type Department Care Team (Late st Contact Info) Description 06/17/2016 Telephone [place] [id number] Nazia Tillman, RN Social History Tobacco Use Types Packs/Day [...] encounter Miscellaneous Notes * Telephone Encounter - Nazia Tillman, RN - 06/17/2016 4:59 PM EDT Elaina called the clinic this afternoon with concerns about her belly button incision. She is s/p lap rocco with Dr. Hernandez on 06/04/16. She reports her belly button incision is draining and is slightly red. She denies any fever or chills and otherwise feels well. She had her PCP look at the area andhe recommended she call us. Encouraged her to anitha the redness with a permanent marker. She will call us back if she develops a fever or if the redness spreads beyond the marked area. She verbalized an understanding and is in agreement with the plan. documented in this encounter Plan of Treatment Not on file documented as of this encounter Visit Diagnoses Not on filedocumented in this encounter Care Teams Physician President Relationship Specialty Start Date End Date Duncan Paul MD [address] [place] [id number] PCP - General General Internal Medicine 10/03/15 documented as of this encounter
--- OUTSIDE RECORDS SUMMARY | 2023-09-10 14:48 | XMS_ITS | Encounter Summary ---
Author Organization [facility] [place] [address] Care Team Providers Care Ground Operations Crew Member Name Role Phone Duncan Paul MD Primary Care Provider [phone] Reason for Visit * Auth/Cert Specialty Diagnoses / Procedures Referred By Sulaiman reyes Referred To Contact Diagnoses Pancreatitis Procedures PRO UPPER GI ENDOSCOPY, DIAGNOSTIC PRO ENDOSCOPIC US EXAM, ESOPH PRO ANESTH, UGI ENDOSCOPY EGD, UPPER GI ENDOSCOPY UPPER EUS- ENDOSCOPIC ULTRASOUND Referral ID Status Reason Start Date Expiration Date Visits Re quested Visits Authorized [id number] 1 1 Encounter Details Date Type Department Care Team (Late st Contact Info) Description 12/03/2015 8:10 AM EDT Anesthesia [place] [address] Manish Rodney MD [facility] [place] [address] Anesthesia Record Procedure Summary Procedure Name Responsible Anesthesiologist Anesthesia Start Time Anesthesia Stop Time EGD, UPPER GI ENDOSCOPY (WRVU 2.09) (Trunk) Manish Rodney MD 12/03/15 0810 12/03/15 0910 Events Date Time Event Comment 12/03/2015 0742 0810 Start 0812 AN Verify 0812 An Start Data 0818 An Induction 0820 Anesthesia Ready 0827 Quick Note Food noted in s tomach during EGD, EGD withdrawn, no food in esophagus, cricoid pressure initiated, RSI intubation 0831 An Intubation 09 Extubation/LMA Out 09 an stop data 0910 Recovery or ICU Handoff Mariola ent care was transferred to the destination unit staff after review of the patient's medical history, current anesthetic/surgical status and plan, according to the Provider Handoff Checklist. 09 Stop Meds Name Total IV Lidocaine 40 mg Propofol 250 mg Propofol INF 700.59 mg Ondansetron 4 mg Succinylcholine 100 mg lactated ringers infusion 700 mL * Agents Name O2 * Blood No blood administrations on file. Lines, Drains, and Airways Type Details Placement Removal (RETIRED) Peripheral IV Line - Single Lumen 12/03/15; 0733; median cubital vein right (antecubital fossa); [id number] catheter system; 22 gauge; Teddy Heart RN; distraction; 1; metacarpal vein (top of hand), right; 12/03/15; 0946 12/03/15 0733 by Teddy Heart RN 12/03/15945 by Norman Burns RN ETT Mask Ventilation: No t Attempted (0); ETT Type: Cuffed; ETT Size: 7 mm; Mac Blade: 3; Notes: Asleep, Pre-O2, RSI, Cricoid Pressure, Stylette; Attempts: 1; Laryngoscopy Grade: 1; ETT Placement Verified By: Auscultation, Capnometry, Visual; Secured at Teeth: 22 cm; Inserted by: Ana Bond CRNA; Removal Date: 12/03/15; Removal Time: 90412/03/15830 by Mingo Bond CRNA 12/03/15904 by Mingo Bond CRNA documented in this encounter Social History Tobacco Use Types Packs/Day Years Used Date Smoking Tobacco: Every Day Cigarettes Smokeless Tobacco: Never Comments:on occassion Alcohol Use Standard Drinks/Week Comments No 0 (1 standard drink = 0.6 oz pur e alcohol) Sex and Gender Information Value Date Recorded Sex Assigned at Not on file Gender Identity Not on file Sexual Orientation Not on file documented as of this encounter OR Notes * Anesthesia Postprocedure Evaluation - Manish Rodney MD - 12/03/2015 9:18 AM EDT [facility] Department of Anesthesiology Post-procedure Note Patient: Elaina Bangura Procedure Summary Date Anesthesia Start Anesthesia Stop Room / Location 12/03/15 0810 0910 [facility] ENDO 4 / [facility] END[facility]COPY Procedure Diagnosis Surgeon Responsible Provider EGD, UPPER GI ENDOSCOPY (N/A Trunk); UPPER EUS- ENDOSCOPIC ULTRASOUND (N/A Trunk) (Pancreatitis - CONSULT) Cayden Mccann MD Pouliot, Ryan C, MD All Anesthesia Providers: Anesthesiologist: Manish Rodney MD BOOK ILLUSTRATOR: Mingo Bond CRNA Last (1hr) Vitals: BP 110/66 (12/03/15912) Temp Pulse Resp 15 (12/03/15912) SpO2 93 % (12/03/15912) Patient Location: PACU/[facility] Level of Consciousness: Awake and Alert Pain Management: Satisfactory Analgesia PONV: Ongoing PONV/Being Treated Cardiovascular Status: At Baseline and Hemodynamically Stable Respiratory Status: At Baseline Postoperative Fluid Status: Intravascular EUvolemia Possible Anesthetic Complications: NONE apparent at time of evaluation Final Primary Anesthesia Type: General The Primary Anesthetic Type Changed from the Original (PreOp) Anesthesia Plan: Comments: Large amount of food present in stomach on EGD. Plan to perform EUS and possible ERCP, therefore elected to intubate for airway protection. No evidence of aspiration. * Anesthesia Preprocedure Evaluation - Manish Rodney MD - 12/03/2015 6:56 AM EDT Pre-Anesthesia Evaluation for: Elaina Bangura a 45 y.o. female. Procedure(s): EGD, UPPER GI ENDOSCOPY UPPER EUS- ENDOSCOPIC ULTRASOUND Patient Active Problem List Diagnosis ??? PAD (peripheral artery disease) ??? Cyanotic fingertip ??? Depression Past Medical History Diagnosis Date ??? Depression Hospitalized in 2008, has had lifelong ??? Migraine not formally diagnosed ??? Peripheral vascular disease Past Surgical History Procedure Laterality Date ??? Hysterectomy 2007 ??? Tubal ligation 2002 Social History Substance Use Topics ??? Smoking status: Former Smoker Years: 25.00 ??? Smokeless tobacco: Never Used Comment: on occassion ??? Alcohol use Yes Comment: rarely History Drug Use No No Known Allergies Medications: MAR and/or home medications have been reviewed. Physical Exam: There were no vitals filed for this visit. There is no height or weight on file to calculate BMI. Airway Assessment: Mallampati: II TM distance: >3 FB Neck ROM: full Cardiovascular Assessment: Pulmonary Assessment: Dental Assessment: Misc Assessment: IV access: Peripheral line Anesthesia Plan: ASA 3 MAC, with a(n) intravenous induction 45 y/o woman with a PMH of depression, PAD and recent admission for severe pancreatitis of unknown etiology who presents for EGD and EUS. Denied problems with anesthesia in the past. Plan for MAC with propofol sedation. Region - Other Informed Consent: Anesthetic plan and risks discussed with patient. Plan discussed with BOOK ILLUSTRATOR. PAT Staff Note documented in this encounter Plan of Treatment [...] 7:33 AM EDT 50 mL/hr 50 mL/hr lidocaine (PF) (XYLOCAINE) 100 mg/5 mL (2 %) injection PRN, Starting on Wed12/03/15 at 0818, Until Wed12/03/15 at 0910, Anesthesia Intra-op, Routine Given 12/03/2015 8:18 AM EDT 40 mg ondansetron (ZOFRAN) injection PRN, Starting on Wed12/03/15 at 0818, Until Wed12/03/15 at 0910, Nausea, Anesthesia Intra-op, Routine Given 12/03/2015 8:18 AM EDT 4 mg propofol (DIPRIVAN) 10 mg/mL bolus injection (Anesthesia) PRN, Starting on Wed12/03/15 at 0818, Until Wed12/03/15 at 0910, Anesthesia Intra-op Given 12/03/2015 8:30 AM EDT 15 0 mg Given 12/03/2015 8:22 AM EDT 50 mg Given 12/03/2015 8:18 AM EDT 50 mg propofol (DIPRIVAN) infusion CONTINUOUS PRN, Starting on Wed12/03/15 at 0818, Until Wed12/03/15 at 0910, Anesthesia Intra-op, Routine Rate/Dose Change 12/03/2015 8:31 AM EDT 250 mcg/kg/min 108.9 mL/hr Rate/Dose Change 12/03/2015 8:22 AM EDT 200 mcg/kg/min 87. 1 mL/hr New Bag 12/03/2015 8:18 AM EDT 150 mcg/kg/min 65.3 mL/h r succinylcholine (ANECTINE) injection PRN, Starting on Wed12/03/15 at 0830, Until Wed12/03/15 at 0910, Anesthesia Intra-op, Routine Given 12/03/2015 8:30 AM EDT 100 mg documented in this encounter Care Teams Ground Operations Crew Member Relationship Specialty Start Date End Date Duncan Paul MD [address] [address] PCP - General General Internal Medicine 10/03/15 documented as of this encounter
--- OUTSIDE RECORDS SUMMARY | 2023-09-10 14:48 | XMS_ITS | Encounter Summary ---
[place] [address] Care Team Providers Care Sueding Machine Operator Name Role Phone Duncan Paul MD Primary Care Provider [phone] Reason for Referral * Diagnostic Test (Routine) - Closed Specialty Diagnoses / Procedures Referred By Contac t Referred To Contact Radiology Diagnoses Acute biliary pancreatitis Procedures CT Abdomen & Pelvis w Contrast Sam Shine MD [facility] [place] [address] [facility] [place] [address] Referral ID Status Reason Start Date Expiration Date V isits Requested Visits Authorized [id number] Closed Specialty Service Requested 10/24/2015 01/22/2016 1 1 Reason for Visit * Diagnostic Test (Routine) - Closed Specialty Diagnoses / Procedures Referred By Contac t Referred To Contact Radiology Diagnoses Acute biliary pancreatitis Procedures CT Abdomen & Pelvis w Contrast Sam Shine MD [facility] [place] [address] [facility] [place] [address] Referral ID Status Reason Start Date Expiration Date V isits Requested Visits Authorized [id number] Closed Specialty Service Requested 10/24/2015 01/22/2016 1 1 Encounter Details Date Type Department Care Team (Latest Contact Info) Description 10/24/2015 2:29 PM EDT - 10/24/2015 11:59 PM EDT [facility] [place] [address] Cayden Mccann MD [facility] [place] [address] Acute biliary pancreatitis Discharge Disposition: Home Social History Tobacco Use Types Packs/Day Years Used Date Smoking Tobacco: Former Cigarettes Smokeless Tobacco: Never Comments:on occassion Alcohol Use Standard Drinks/Week Comments Yes 0 (1 standard drink = 0.6 oz pur e alcohol) rarely Sex and Gender Information Value Date Recorded Sex Assigned at Not on file Gender Identity Not on file Sexual Orientation Not on file documented as of this encounter Medications at Time of Discharge [...] 01/17/2013 06/01/2016 documented as of this encounter Plan of Treatment Not on file documented as of this encounter Procedures Procedure Name Priority Date/Time Associated Diagnosis Comments CT ABDOMEN AND PELVIS W CONTRAST Routine 10/24/2015 4:28 PM EDT Acute biliary pancreatitis documented in this encounter Results * CT Abdomen & Pelvis w Contrast (10/24/2015 4:28 PM EDT) Anatomical Region Laterality Modality Abdomen, Pelvis Computed Tomogra phy Impressions 10/24/2015 4:55 PM EDT 1. Interval resolution of the findings of acute pancreatitis. Pancreatic duct is nondilated and unremarkable. 2. CBD is slightly prominent in the proximal portion with an abrupt change of diameter at the mid CBD. This is a nonspecific finding. However, scar formation is a consideration. Correlate with LFT and follow-up is recommended. 3. No other acute findings. Ancillary findings are described in the body of the report. Narrative 10/24/2015 4:55 PM EDT EXAMINATION: ??CT ABDOMEN W CONTRAST CLINICAL HISTORY: ??follow-up of acute pancreatis, pt with persist abdominal discomfort, plan for repeat CT A/P, comment of biliopancreatic ducts as ??best as possible TECHNIQUE: Helical CT of the abdomen was performed following the intravenous administration of contrast. 110 cc of Omnipaque 350 was given. Dedicated pancreatic protocol was applied. No oral contrast was administered. COMPARISON: ??Correlated with MRI from 09/24/[address] from 09/18/2015 FINDINGS: Lung bases: ??Normal Liver: ??Normal size, no focal lesions. Slightly fatty liver. Bile ducts: ??The proximal common duct is slightly dilated and measures up to 7 mm. The distal CBD is of normal diameter. The transition is quite abrupt at the mid CBD (series 3, image [id number]). This is nonspecific but may indicate scar formation. Correlation with LFTs and follow-up is recommended. Gallbladder: ??No calcified gallstones. Normal caliber wall Pancreas: ??. No CT evidence of pancreatitis on this examination. Pancreatic duct is not visualized and not dilated. Spleen: ??Normal Adrenals: ??Normal Kidneys: ??The left kidney contains a hypodense lesion, too small to characterize but likely representing a cyst. Lymph Nodes: ??No enlarged lymph nodes. Bowel: Normal caliber. No adjacent inflammatory changes or wall thickening. Peritoneum: No ascites or free air, no fluid collection. Vasculature: Within normal limits Bones: No suspicious lesions. Procedure Note SadKeshia Olguin MD - 10/24/2015 EXAMINATION: CT ABDOMEN W CONTRAST CLINICAL HISTORY: follow-up of acute pancreatis, pt with persistabdominal discomfort, plan for repeat CT A/P, comment of biliopancreatic ducts asbest as possible TECHNIQUE: Helical CT of the abdomen was performed following theintravenous administration of contrast. 110 cc of Omnipaque 350 was given. Dedicated pancreatic protocol was applied. No oral contrast was administered. COMPARISON: Correlated with MRI from 09/24/[address] from 09/18/2015 FINDINGS: Lung bases: Normal Liver: Normal size, no focal lesions. Slightly fatty liver. Bile ducts: The proximal common duct is slightly dilated and measures upto 7 mm. The distal CBD is of normal diameter. The transition is quite abruptat the mid CBD (series 3, image [id number]). This is nonspecific but may indicatescar formation. Correlation with LFTs and follow-up is recommended. Gallbladder: No calcified gallstones. Normal caliber wall Pancreas: . No CT evidence of pancreatitis on this examination.Pancreatic duct is not visualized and not dilated. Spleen: Normal Adrenals: Normal Kidneys: The left kidney contains a hypodense lesion, too small tocharacterize but likely representing a cyst. Lymph Nodes: No enlarged lymph nodes. Bowel: Normal caliber. No adjacent inflammatory changes or wallthickening. Peritoneum: No ascites or free air, no fluid collection. Vasculature: Within normal limits Bones: No suspicious lesions. IMPRESSION 1. Interval resolution of the findings of acute pancreatitis. Pancreaticduct is nondilated and unremarkable. 2. CBD is slightly prominent in the proximal portion with an abrupt changeof diameter at the mid CBD. This is a nonspecific finding. However, scarformation is a consideration. Correlate with LFT and follow-up is recommended. 3. No other acute findings. Ancillary findings are described in the bodyof the report. Cayden Mccann MD IMG CT ORDERABLES documented in this encounter Visit Diagnoses Diagnosis Acute biliary pancreatitis Acute pancreatitis documented in this encounter Care Teams Sueding Machine Operator Relationship Specialty Start Date End Date Duncan Paul MD [address] [place] [id number] PCP - General General Internal Medicine 10/03/15 documented as of this encounter
--- OUTSIDE RECORDS SUMMARY | 2023-09-10 14:48 | XMS_ITS | Encounter Summary ---
Author Organization [facility] [place] [address] Care Team Providers Care Neon Sign Installer Name Role Phone Duncan Paul MD Primary Care Provider Encounter Details Date Type Department Care Team (Late st Contact Info) Description 06/04/2016 2:03 PM EDT Anesthesia Event [place] [address] Elvis Noble MD [facility] [place] [address] Ketty Rodriguez CRNA [address] [place] [address] Anesthesia Record Procedure Summary Procedure Name Responsible Anesthesiologist Anesthesia Start Time Anesthesia Stop Time ROBOTIC LAPAROSCOPY,CHOLECYSTECT ASIM WITH CHOLANGIOGRAPHY (WRVU 11.47) (Abdomen) Elvis Noble MD 06/04/16 1403 06/04/16 1649 Events Date Time Event Comment 06/04/2016 1348 1403 AN Verify 1403 Start 1409 An Start Data 1413 An Induction 1416 An Intubation 1420 Anesthesia Ready 1440 Procedure Start 1443 Quick Note Insufflation 1521 Break/Relief In JOHNATHON Nath, GOLF COURSE RANGER 1546 Break/Relief Out 1633 Extubation/LMA Out Spontaneo us TV >700. Suctioned. Extubated. Breathing well on own. To SD on 4 L NC. Patient alert and oriented 1639 an stop data 1648 Recovery or ICU Handoff Mariola ent care was transferred to the destination unit staff after review of the patient's medical history, current anesthetic/surgical status and plan, according to the Provider Handoff Checklist. 1649 Stop Meds Name Total Midazolam 2 mg IV Lidocaine 100 mg Propofol 250 mg Rocuronium 50 mg ePHEDrine 10 mg Ondansetron 4 mg Dexamethasone 8 mg HYDROmorphone 2 mg Ampicillin-Sulbactam 3 g Dexmedetomidine INF 62.4 mcg Ketamine 10 mg/mL 100 mg Indocyanine Green 10 mg Ketorolac 15 mg lactated ringers infusion 1,000 mL 1,000 mL * Agents Name O2 Air N2O Sevoflurane (et) O2 Auxiliary Flowmeter 1 * Blood No blood administrations on file. Lines, Drains, and Airways Type Details Placement Removal NG/OG Tube 06/04/16; 1418; orogastric; 16 Fr; mouth; Secured; low continuous suction while in the OR 06/04/16 1418 by Ketty Rodriguez CRNA Incision 06/04/16; abdomen; laparoscopic punctures (specify); 4 Trocar sites; 10/20/21 (LDA cleanup utility RA#[id number]); 1715 (LDA cleanup utility RA#[id number]) 06/04/16 0000 by Leslye Gunn RN 10/20/21 1715 by Nadira Partida (RETIRED) Peripheral IV Line - Single Lumen 06/04/16; 1337; metacarpal vein (top of hand), left; [id number] catheter system; 18 gauge; Hipolito Ji RN; intradermal injection; 1; cephalic vein (lateral side of arm), right; no longer indicated, removed per policy/procedure, catheter/device intact; 06/04/16; 180906/04/16 1337 by Estefany Richardson RN 06/04/16 181 by Kayley Huston ETT Mask Ventilation: Ea sy (1); ETT Type: Cuffed; ETT Size: 7 mm; Mac Blade: 3; Notes: Asleep, Pre-O2, Cricoid Pressure, Stylette; Attempts: 1; Laryngoscopy Grade: 1; ETT Placement Verified By: Auscultation, Capnometry, Visual; Secured at Teeth: 22 cm; Inserted by: Jackie; Removal Date: 06/04/16; Removal Time: 163206/04/16 1416 by Ketty Rodriguez CRNA 06/04/16 1633 by Ketty Rodriguez CRNA documented in this encounter Social History [...] OR Notes * Anesthesia Postprocedure Evaluation - Elvis Noble MD - 06/04/2016 5:37 PM EDT [facility] [place]iology Post-procedure Note Patient: Elaina Bangura Procedure Summary Date Anesthesia Start Anesthesia Stop Room / Location 06/04/16 1403 1649 [facility] OR 11 / [facility] MAIN OR Procedure Diagnosis Surgeon Responsible Provider ROBOTIC LAPAROSCOPY,CHOLECYSTECTOMY WITH CHOLANGIOGRAPHY (WRVU 11.47) (N/A Abdomen); MODIFIER ROBOT,DAVINCI XI (N/A Abdomen); LAPAROSCOPIC LIVER BIOPSY (WRVU 16.52) (Abdomen) (GALLSTONE PANCREATITIS)Marcelina Hernandez MD Sites, Brian D, MD All Anesthesia Providers: Anesthesiologist: Brooke Ballard MD; Elvis Noble MD GOLF COURSE RANGER: Ketty Rodriguez CRNA Last (1hr) Vitals: BP 105/65 (06/04/16 1700) Temp 37.1 ??C (98.8 ??F) (06/04/16 1645) Pulse Resp 16 (06/04/16 1645) SpO2 95 % (06/04/16 1715) Patient Location: PACU/[facility] Level of Consciousness: Awake and Alert Pain Management: Satisfactory Analgesia PONV: None Cardiovascular Status: At Baseline Respiratory Status: At Baseline Postoperative Fluid Status: Intravascular EUvolemia Possible Anesthetic Complications: NONE apparent at time of evaluation Final Primary Anesthesia Type: General (The anesthetic type performed was the same as planned.) Comments: I have evaluated the patient in the postoperative period. The time of my evaluation may not match the note time. The patient has no major complaints and there are no serious complications evident. * Anesthesia Preprocedure Evaluation - Brooke Ballard MD - 06/04/2016 1:45 PM EDT Pre-Anesthesia Evaluation for: Elaina Bangura a 45 y.o. female. Procedure(s): ROBOTIC LAPAROSCOPY,CHOLECYSTECTOMY WITH CHOLANGIOGRAPHY (WRVU 11.47) MODIFIER ROBOT,DAVINCI XI Patient Active Problem List Diagnosis ??? PAD (peripheral artery disease) ??? Cyanotic fingertip ??? Depression Past Medical History: Diagnosis Date ??? Depression Hospitalized in 2008, has had lifelong ??? Migraine not formally diagnosed ??? Peripheral vascular disease Past Surgical History: Procedure Laterality Date ??? HYSTERECTOMY 2006 ??? PRO ENDOSCOPIC US EXAM, ESOPH N/A 12/03/2015 UPPER EUS- ENDOSCOPIC ULTRASOUND performed by Cayden Mccann MD at [facility] ENDOSCOPY ??? PRO UPPER GI ENDOSCOPY, DIAGNOSTIC N/A 12/03/2015 EGD, UPPER GI ENDOSCOPY performed by Cayden Mccann MD at [facility] ENDOSCOPY ??? TUBAL LIGATION 2002 Social History Substance Use Topics ??? Smoking status: Current Every Day Smoker Packs/day: 1.00 ??? Smokeless tobacco: Never Used Comment: on occassion ??? Alcohol use No History Drug Use ??? Yes ??? Special: Marijuana Comment: twice a year No Known Allergies Medications: MAR and/or home medications have been reviewed. Physical Exam: Vitals: 06/04/16 1309 BP: 141/73 Pulse: 67 Resp: 16 Temp: 36.8 ??C (98.2 ??F) There is no height or weight on file to calculate BMI. 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 Discussed risks/benefits GALIZBET. Informed Consent: Anesthetic plan and risks discussed with patient. Plan discussed with GOLF COURSE RANGER. PAT Staff Note documented in this encounter Plan of Treatment Not on file documented as of this encounter Visit Diagnoses Not on filedocumented in this encounter Administered Medications Inactive Administered Medications - up to 3 most recent administrations Medication Order MAR Action Action Date Dose Rate Site ampicillin-sulbactam (UNASYN) injection PRN, Starting on Xiomara 06/04/16 at 1438, Until Xiomara 06/04/16 at 1649, Anesthesia Intra-op, Routine Given 06/04/2016 2:38 PM EDT 3 g dexamethasone (DECADRON) injection PRN, Starting on Xiomara 06/04/16 at 1413, Until Xiomara 06/04/16 at 1649, Anesthesia Intra-op, Routine Given 06/04/2016 2:13 PM EDT 8 mg dexmedetomidine (PRECEDEX) IV infusion (anesthesia) CONTINUOUS PRN, Starting on Xiomara 06/04/16 at 1425, Until Xiomara 06/04/16 at 1649, Anesthesia Intra-op, Routine New Bag 06/04/2016 2:25 PM EDT 0.5 mcg/kg/hr 9.1 mL/hr ePHEDrine 5 mg/mL multi-dose injection PRN, Starting on Xiomara 06/04/16 at 1443, Until Xiomara 06/04/16 at 1649, Anesthesia Intra-op, Routine Given 06/04/2016 2:43 PM EDT 10 mg HYDROmorphone (DILAUDID) injection PRN, Starting on Xiomara 06/04/16 at 1403, Until Xiomara 06/04/16 at 1649, Pain, Anesthesia Intra-op, Routine Given 06/04/2016 4:36 PM EDT 0.6 mg Given 06/04/2016 4:11 PM EDT 0.2 mg Given 06/04/2016 2:09 PM EDT 0.6 mg indocyanine green (IC-GREEN) injection PRN, Starting on Xiomara 06/04/16 at 1418, Until Xiomara 06/04/16 at 1649, Anesthesia Intra-op, Routine Given 06/04/2016 2:18 PM EDT 10 mg ketamine (KETALAR) 10 mg/mL bolus injection (Anesthesia) PRN, Starting on Xiomara 06/04/16 at 1418, Until Xiomara 06/04/16 at 1649, Anesthesia Intra-op Given 06/04/2016 3:54 PM EDT 50 mg Given 06/04/2016 2:24 PM EDT 20 mg Given 06/04/2016 2:18 PM EDT 30 mg ketorolac (TORADOL) injection PRN, Starting on Xiomara 06/04/16 at 1606, Until Xiomara 06/04/16 at 1649, Pain, Anesthesia Intra-op, Routine Given 06/04/2016 4:06 PM EDT 15 mg lactated ringers infusion 1,000 mL 1,000 mL, at 100 mL/hr, Intravenous, CONTINUOUS, Starting on Xiomara 06/04/16 at 1415, Until Xiomara 06/04/16 at 1814, Day of Surgery (Day of Procedure) New Bag 06/04/2016 4:14 PM EDT New Bag 06/04/2016 2:02 PM EDT 1,000 mLs 100 mL/hr lidocaine (PF) (XYLOCAINE) 100 mg/5 mL (2 %) injection PRN, Starting on Xiomara 06/04/16 at 1413, Until Xiomara 06/04/16 at 1649, Anesthesia Intra-op, Routine Given 06/04/2016 2:13 PM EDT 100 mg midazolam (PF) (VERSED) 1 mg/mL multi-dose injection PRN, Starting on Xiomara 06/04/16 at 1403, Until Xiomara 06/04/16 at 1649, Sleep, Anesthesia Intra-op, Routine Given 06/04/2016 2:06 PM EDT 1 mg Given 06/04/2016 2:03 PM EDT 1 mg ondansetron (ZOFRAN) injection PRN, Starting on Xiomara 06/04/16 at 1606, Until Xiomara 06/04/16 at 1649, Nausea, Anesthesia Intra-op, Routine Given 06/04/2016 4:06 PM EDT 4 mg propofol (DIPRIVAN) 10 mg/mL bolus injection (Anesthesia) PRN, Starting on Xiomara 06/04/16 at 1413, Until Xiomara 06/04/16 at 1649, Anesthesia Intra-op Given 06/04/2016 2:13 PM EDT 250 mg rocuronium (ZEMURON) multi-dose injection PRN, Starting on Xiomara 06/04/16 at 1414, Until Xiomara 06/04/16 at 1649, Anesthesia Intra-op, Routine Given 06/04/2016 2:14 PM EDT 50 mg documented in this encounter Care Teams Neon Sign Installer Relationship Specialty Start Date End Date Duncan Paul MD [address] [place] [place] [id number] PCP - General General Internal Medicine 10/03/15 documented as of this encounter
--- OUTSIDE RECORDS SUMMARY | 2023-09-10 14:48 | XMS_ITS | Encounter Summary ---
[place] [address] Care Team Providers Care Group Sales Representative Name Role Phone Duncan Paul MD Primary Care Provider Encounter Details Date Type Department Care Team (Late st Contact Info) Description 12/18/2015 [place] [phone] Seng Kaur Social History Tobacco Use Types Packs/Day Years [...] encounter Miscellaneous Notes * Telephone Encounter - Seng Kaur - 12/18/2015 10:11 AM EDT Pt called with 2 questions; following up on her biopsy results (informed Pt a letter had been sent out today with those results) and whether Dr. Shine or Dr. Mcacnn would be willing to write a letter stating Pt is okay to go back to work. Pt states she was fired from her job for her absence and the belief that she's unfit to continue working. Will forward to Dr. Shine. documented in this encounter Plan of Treatment Not on file documented as of this encounter Visit Diagnoses Not on filedocumented in this encounter Care Teams Group Sales Representative Relationship Specialty Start Date End Date Duncan Paul MD [address] [place] [id number] PCP - General General Internal Medicine 10/03/15 documented as of this encounter
--- OUTSIDE RECORDS SUMMARY | 2023-09-10 14:48 | XMS_ITS | Encounter Summary ---
[place] [address] Care Team Providers Care Television Presenter Name Role Phone Duncan Paul MD Primary Care Provider Encounter Details Date Type Department Care Team (Late st Contact Info) Description 02/28/2020 Telephone [place] [phone] Gayle Will Social History Tobacco Use Types Packs/Day Years [...] encounter Miscellaneous Notes * Telephone Encounter - Gayle Will - 02/28/2020 10:33 AM EST Elainaankit Bangura [id number] Diagnosis/Indication: diarrhea 1. Have you ever had a/an none before? No If yes, did you have any problems with the procedure? No What type of sedation was used: None 2. Do you take any Blood Thinners? No 3. Do you have a Pacemaker or Defibrillator device? No 4. Are you a diabetic? No 5. Do you have any Allergies to Eggs, Latex or Medications? No 6. Do you take any Oral Iron Supplements (Including multi-vitamins)? No 7. Do you have a history of three or more abdominal surgeries? Yes 8. Have you had a problem with sedation or anesthesia? No 9. Do you have a c-pap machine or oxygen tank? Neither 10. Do you take prescription narcotic pain medications, including suboxone or methodone? No 11. Do you have a preference regarding the gender of your provider? No Preference 12. Is there any other information you would like to give us to aid in scheduling? No 13. Say to patient: You must have a responsible green party who will drive you to your procedure, stay oncampus for the entire duration of your procedure, and drive you home from your procedure? *Please Verify the height and weight, and adjust if height and/or weight have changed* Estimated body mass index is 29.01 kg/m?? as calculated from the following: Height as of an earlier encounter on 02/28/20: 165.1 cm (5' 5). Weight as of an earlier encounter on 02/28/20: 79.1 kg (174 lb 4.8 oz). Age:49 y.o. documented in this encounter Plan of Treatment Not on file documented as of this encounter Visit Diagnoses Not on filedocumented in this encounter Care Teams Television Presenter Relationship Specialty Start Date End Date Duncan Paul MD [address] [address] PCP - General General Internal Medicine 10/03/15 documented as of this encounter
--- OUTSIDE RECORDS SUMMARY | 2023-09-10 14:48 | XMS_ITS | Encounter Summary ---
Author Organization [facility] [place] [address] Care Team Providers Care Environmental Restoration Planner Name Role Phone Duncan Paul MD Primary Care Provider [phone] Encounter Details Date Type Department Care Team (Late st Contact Info) Description 12/19/2015 Telephone [place] [address] Cayden Mccann MD [facility] [place] [address] Social History Tobacco Use Types Packs/Day Years [...] encounter Miscellaneous Notes * Telephone Encounter - Cayden Mccann MD - 12/19/2015 10:03 AM EDT I spoke to Elaina today about her biopsy results. She will follow-up with Dr. Shine as scheduled. documented in this encounter Plan of Treatment Not on file documented as of this encounter Visit Diagnoses Not on filedocumented in this encounter Care Teams Environmental Restoration Planner Relationship Specialty Start Date End Date Duncan Paul MD [address] [place] [id number] PCP - General General Internal Medicine 10/03/15 documented as of this encounter
--- OUTSIDE RECORDS SUMMARY | 2023-09-10 14:48 | XMS_ITS | Encounter Summary ---
Author Organization [facility] Address [facility] [place] [address] Care Team Providers Care Polymerization Engineer Name Role Phone Viviana Chandler MD Primary Care Provider Encounter Details Date Type Department Care Team (Latest Contact Info) Description 09/18/2015 12:05 AM EDT - 09/18/2015 12:09 AM EDT Hospital Encounter [place] [phone] Cayden Mccann MD [facility] [place] [address] Pain Discharge Disposition: Home Social History Tobacco Use [...] Date End Date gabapentin (NEURONTIN) 400 mg CapsuleIndications:Acute biliary pancreatitis take 3 capsule nightly 12 08/17/2015 simvastatin (ZOCOR) 40 mg tablet Take 1 tablet by mouth daily. 30 tablet 0 04/27/2013 10/24/2015 HYDROcodone-acetaminophe n 5-325 mg per tablet Take 1 tablet by mouth every 6 hours as needed for Pain. 30 tablet 0 04/12/2013 06/04/2016 hydroCODone-acetaminophe n 5-325 mg per tablet Take 1-2 tablets every 4-6 hours as needed for pain 30 tablet 0 01/23/2013 10/24/2015 traMADol (ULTRAM) 50 mg tablet Take 1 tablet by mouth every 6 hours as needed for Pain. 30 tablet 1 01/17/2013 10/24/2015 ibuprofen (ADVIL;MOTRIN) 400 mg tablet Take 1-2 tablets by mouth every 8 hours as needed for Pain. 270 tablet 3 01/17/2013 06/01/2016 NIFEdipine (ADALAT CC) 30 mg 24 hr tablet Take 1 tablet by mouth daily. 30 tablet 1 01/12/2013 10/24/2015 documented as of this encounter Plan of Treatment Not on file documented as of this encounter Procedures Procedure Name Priority Date/Time Associated Diagnosis Comments FILM LIBRARY STORAGE ONLY CT ABDOMEN AND PELVIS Routine 09/18/2015 12:05 AM EDT Pain documented in this encounter Results * Film Library- Storage Only CT Abdomen & Pelvis (09/18/2015 12:05 AM EDT) Narrative [facility] - 10/06/2015 8:02 AM EDT This exam is for storage only and is auto-finalizing. Cayden Mccann MD IMG FILM LIBRARY OR DERABLES Performing Organization Address City/State/[facility] [[email or web address]] de Phone Number [place], [place] documented in this encounter Visit Diagnoses Diagnosis Pain Generalized pain documented in this encounter Care Teams Polymerization Engineer Relationship Specialty Start Date End Date Viviana Chandler MD [facility] [address] [place] [address] PCP - General 04/03/13 10/02/15 documented as of this encounter
--- OUTSIDE RECORDS SUMMARY | 2023-09-10 14:48 | XMS_ITS | Encounter Summary ---
[place] [address] Care Team Providers Care Applications Engineer Manufacturing Name Role Phone Duncan Paul MD Primary Care Provider [phone] Reason for Referral * Diagnostic Test (Routine) - Closed Specialty Diagnoses / Procedures Referred By Sulaiman reyes Referred To Contact Radiology Diagnoses Acute biliary pancreatitis Procedures CT Abdomen & Pelvis w Contrast Sam Shine MD [facility] [place] [address] [facility] [place] [address] Referral ID Status Reason Start Date Expiration Date V isits Requested Visits Authorized [id number] Closed Specialty Service Requested 10/24/2015 01/22/2016 1 1 Reason for Visit * Reason Comments Follow-up GI Problem * Consultation (Routine) - Closed Specialty Diagnoses / Procedures Referred By Sulaiman reyes Referred To Contact Gastroenterology Diagnoses prolonged pancreatitis in smoker and elevated transaminase levels, during a recent hosptialization at [facility] Duncan Paul MD [address] [place] [address] [facility] [address] [address] Referral ID Status Reason Start Date Expiration Date V isits Requested Visits Authorized [id number] Closed Consult, Test & Treat Connection Center 10/04/2015 10/03/2016 1 1 Encounter Details Date Type Department Care Team (Late st Contact Info) Description 10/24/2015 8:00 AM EDT Office [place] [id number] Sam Shine MD [facility] [place] [address] Acute biliary pancreatitis Social History Tobacco Use Types Packs/Day Years [...] Sign Reading Time Taken Comments Blood Pressure 124/78 10/24/2015 7:39 AM EDT Pulse 60 10/24/2015 7:39 AM EDT Temperature - - Respiratory Rate - - Oxygen Saturation - - Inhaled Oxygen Concentration - - Weight 66.7 kg (147 lb) 10/24/2015 7:39 AM EDT Height 167.6 cm (5' 6) 10/24/2015 7:39 AM EDT Body Mass Index 23.73 10/24/2015 7:39 AM EDT documented in this encounter Patient Instructions * Patient Instructions* Sam Shine - 10/24/2015 8:00 AM EDT 1. Check labs today 2. Check CT abdomen and pelvis 3. RTC in 1 month documented in this encounter Progress Notes * Sam Shine - 10/24/2015 8:00 AM EDT [facility] Department of Gastroenterology Outpatient Clinic Note Source: patient, chart review CC: Pancreatitis on unclear etiology History of Present Illness: 44yo F with pmh of chronic RUE neuralgia 2/2 peripheral vascular disease on chronic narcotics (hydrocodone), depression with recent admission for severe pancreatitis of unclear etiology presents to GI clinic for evaluation. During the last week of 08/2015, pt with nausea, NBNB vomiting and general PO intolerance. It addition noted lack of urine output. Due to these symptoms, pt went to [facility] ED 09/15. Labs (see below) noted acute renal failure and labs suggestive of biliary pancreatitis with cholestatic liver tests and marked lipase elevation. A CT A/P noncontrast and MRCP wereperformed which did not reveal evidence of biliary dilation or cholelithiasis. Pt was given marked IV hydration, admitted to ICU. Over the course of a 9 days hospitalization, pt symptoms resolved, renal output improved (per pt she did not require HD), and pt was eventually discharged. Since discharge over the course of September, pt notes intermittent RUQ pain radiating to the back. Currently pt feels ok, states good appetite denies abdominal pain/f/c/bloating. OSH Labs and Imagin/27-09/25, 10/02 PCP, cholestatic liver tests, 09/17 labs Cr 9.1, BUN 49, Ca 11.2, EtOH level normal, 1147 ALT, AST 160, ALK 164, 2.4, WBC 14K, 60/34/202/.51, liapse 1184 (ULN 393) US no cholelithaisis, CBD 3mm MRCP limited motion artifact, no biliary dilation CT A/P without contrast - enlarged pancreas, fat stranidng, Past Medical History: Chronic arm neuralgia -peirpheral artery spasm Migraines Depressions Past Surgical History: Past Surgical History Procedure Laterality Date ??? Hysterectomy 2006 ??? Tubal ligation 2002 Medication History: Gabapentin 800mg nightly Spirinolactone 50mg daily Hydrocodone every 4hr ASA Allergies: No Known Allergies Social History: Grew up in [place], [place] , 2 kids (son 22yo, daughter 12yo) Working for [employer] Ex-smoker 30 pack-year (quit 08/2015) Denies illicits EtOH use 8-10 drinks/week, started at 26yo Family History: M: HTN, RA F: Gout S: Healthy No family history of history of pancreatitis or pancreatic cancer. No family history of other GI based malignancy. PHYSICAL EXAM: Vitals: Last value Range last 24 hrs Temperature Temp: -- Heart Rate Heart Rate: 60 Heart Rate: -- Blood Pressure BP: 124/78 BP: -- Respiratory Rate Resp: -- SpO2 SpO2: -- Body mass index is 23.73 kg/(m^2). Exam: Gen: AAOX3, NAD, cooperative HEENT: EOMI, Anicteric sclera, MMM CV: RRR, S1, S2, no murmurs Resp: CTAB Abd: Soft, NT, ND, NABS, No HSM appreciated EXT: No pedal edema Skin: No rashes, sores or ulcers Neuro: Grossly nonfocal Labs: Recent Labs 10/24/15 1340 WBC 10.1* HGB 13.3 HCT 38.5 PLATELET 369 NEUTROABS 6.68* Recent Labs 10/24/15 1340 NA 139 K 4.2 CL 100 CO2 22 BUN 6* CREATININE 0.79 Recent Labs 10/24/15 1340 CALCIUM 9.7 Recent Labs 10/24/15 1340 AST 46* ALT 41* ALKPHOS 112* BILITOT 1.0 BILIDIR 0.3 Lipid Panel Lab Results Component Value Date CHLPL 149 10/24/2015 HDL 42 10/24/2015 CHOLHDL 3.5 10/24/2015 TRIG 248 (H) 10/24/2015 LDLCHOL 57 10/24/2015 IgG4: normal A1c: 4.8 Imaging: CT A/P: IMPRESSION 1. Interval resolution of the findings of acute pancreatitis. Pancreatic duct is nondilated and unremarkable. 2. CBD is slightly prominent in the proximal portion with an abrupt change of diameter at the mid CBD. This is a nonspecific finding. However, scar formation is a consideration. Correlate with LFT and follow-up is recommended. 3. No other acute findings. ASSESSMENT/PLAN: 44yo F with pmh of chronic RUE neuralgia 2/2 peripheral vascular disease on chronic narcotics (hydrocodone), depression with recent admission for severe pancreatitis of unclear etiology presents to GI clinic for evaluation. Given the correlation of cholestatic liver tests with marked ALT elevation in context of severe pancreatitis suspect biliary based etiology. Workup of alternative etiologies thus far unremarkable (mildly elevated TGs, normal calcium, no report EtOH use, IgG4 normal). Given patient with persistent intermittent abdominal discomfort (may be related to recovering severe pancreatitis), plan to further evaluate with EGD/EUS. EGD will evaluate for PUD/gastritis related type symp toms, EUS will evaluate the pancreas, as well as the biliary system for sludge. Of note, liver tests note mild elevation of AST/ALT, performed Hep B/C screen which was unremarkable. Plan RTC in 1 month. Recommendations: -EGD/EUS -RTC in 1 month Electronically signed by: Sam Shine Gastroenterology Fellow [facility] Pager [phone] 10/29/2015 * Cayden Mccann MD - 10/24/2015 8:00 AM EDT I interviewed and examined Ms. Bangura with Dr. Shine and I agree with the assessment and plan as outlined in the note from today. Pancreatitis really of unknown etiology that has not settled. Agree with plans for EUS/EGD given CT findings not demonstrating an obvious source. documented in this encounter Plan of Treatment Not on file documented as of this encounter Procedures Procedure Name Priority Date/Time Associated Diagnosis Comments HEMOGRAM Routine 10/24/2015 1:40 PM EDT Acute biliary pancreatitis DIFFERENTIAL, AUTOMATED Routine 10/24/2015 1:40 PM EDT Acute biliary pancreatitis HEPATITIS C ANTIBODY Routine 10/24/2015 1:40 PM EDT HEPATITIS B CORE ANTIBODY, TOTAL Routine 10/24/2015 1:40 PM EDT IGG 4 Routine 10/24/2015 1:40 PM EDT Acute biliary pancreatitis HEPATITIS B SURFACE ANTIGEN Routine 10/24/2015 1:40 PM EDT CBC (WITH DIFF) Routine 10/24/2015 1:40 PM EDT Acute biliary pancreatitis LIPASE Routine 10/24/2015 1:40 PM EDT Acute biliary pancreatitis HEMOGLOBIN A1C Routine 10/24/2015 1:40 PM EDT Acute biliary pancreatitis LIPID PANEL (REFLEX DIRECT LDL) Routine 10/24/2015 1:40 PM EDT Acute biliary pancreatitis COMPREHENSIVE METABOLIC PANEL (NON-FASTING) Routine 10/24/2015 1:40 PM EDT Acute biliary pancreatitis documented in [...] limits Bones: No suspicious lesions. Procedure Note Keshia Redding MD - 10/24/2015 EXAMINATION: CT ABDOMEN W [...] report. Cayden Mccann MD IMG CT ORDERABLES * Hepatitis C Antibody (10/24/2015 1:40 PM EDT) Hepatitis C Ab Negative Negative [facility] Blood specimen (specimen) Venous Draw / Unknown 10/24/2015 1:40 PM EDT 10/24/2015 7:17 PM EDT Narrative Resulting Agency Comment Spec In Lab Cayden Mccann MD IMMUNOLOGY ORDERABL ES Performing Organization Address City/[facility]/ZIP Co de Phone Number [facility] [place] [address] * Hepatitis B Surface Antigen (10/24/2015 1:40 PM EDT) Pathologist [facility] HepB Surface Ag Negative Negative [facility] Blood specimen (specimen) Venous Draw / Unknown 10/24/2015 1:40 PM EDT 10/24/2015 7:17 PM EDT Narrative Resulting Agency Comment Spec In Lab Cayden Mccann MD CHEMISTRY ORDERABLE S Performing Organization Address [facility] Co de Phone Number [facility] [place] [address] * Hepatitis B Core Antibody, Total (10/24/2015 1:40 PM EDT) Hep B Core Ab Negative Negative [facility] Blood specimen (specimen) Venous Draw / Unknown 10/24/2015 1:40 PM EDT 10/24/2015 7:17 PM EDT Narrative Resulting Agency Comment Spec In Lab Cayden Mccann MD CHEMISTRY ORDERABLE S Performing Organization Address City/[facility]/ZIP Co de Phone Number [facility] [place] [address] * (ABNORMAL) Differential, Automated (10/24/2015 1:40 PM EDT) Neutrophils % 66.0 % [facility] Neutr Abs (ANC) 6.68(H) 1.50 - 6.30 x10(3)/[facility] Lymphocytes % 24.7 % [facility] Lymphocytes Abs 2.5 1.0 - 3.6 x10(3)/[facility] Monocytes % 6.7 % [facility] Monocyte Abs 0.7 0.2 - 1.0 x10(3)/[facility] Eosinophils % 2.0 % [facility] Eosinophils Abs 0.2 0.0 - 0.5 x10(3)/[facility] Basophils % 0.3 % [facility] Basophils Abs 0.0 0.0 - 0.2 x10(3)/[facility] Immature Gran % 0.30 % [facility] Comment: Immature granulocytes(IG's)percentage and absolute count will include metamyelocytes, myelocytes, and promyelocytes. Blood smears from CBCs yielding IG's will be scanned manually for concordance. If this scan disagrees with the automated IG or if promyelocytes are noted, a manual differential will be performed. Josseline Gran Abs 0.03 0.00 - 0.05 x10(3)/[facility] Blood specimen (specimen) 10/24/2015 1:40 PM EDT 10/24/2015 1:47 PM EDT Narrative Resulting Agency Comment Spec In Lab Cayden Mccann MD HEMATOLOGY ORDERABL ES [facility] [place] [address] * (ABNORMAL) Hemogram (10/24/2015 1:40 PM EDT) WBC 10.1(H) 4.0 - 10.0 x10(3)/[facility]ORATORY RBC 3.85(L) 3.93 - 5.22 x10(6)/[facility] Hemoglobin 13.3 11.2 - 15.7 gm/dL [facility] Hematocrit 38.5 34.0 - 45.0 % [facility] MCV 100.0(H) 79.0 - 94.0 fL [facility] MCH 34.5(H) 26.6 - 32.2 pg [facility] MCHC 34.5 32.0 - 36.5 gm/dL [facility] Platelets 369 145 - 370 x10(3)/[facility] RDWSD 50.4(H) 35.0 - 46.0 fL [facility] RDWCV 13.8 10.9 - 14.4 % [facility] MPV 10.4 9.0 - 12.0 fL [facility] nRBC % Auto 0.0 % [facility] nRBC Abs Auto 0.000 0.000 - 0.012 x10(3)/[facility] Blood specimen (specimen) 10/24/2015 1:40 PM EDT 10/24/2015 1:47 PM EDT Narrative Resulting Agency Comment Spec In Lab Cayden Mccann MD HEMATOLOGY ORDERABL ES [facility] [place] [address] * Hemoglobin A1c (10/24/2015 1:40 PM EDT) Hemoglobin A1C 4.8 4.3 - 5.6 % [facility] Comment: Reference Range: 4.3 - 5.6% 5.7 - 6.4% - Increased Risk of Developing Diabetes Mellitus >=6.5% - Consistent with diagnosis of Diabetes Mellitus In the absence of hyperglycemia (i.e. plasma glucose > 200 mg/dL) or classic symptoms of hyperglycemia a repeat measurement of HbA1c should be performed on a separate sample to confirm the diagnosis. Diagnosis and Classification of Diabetes Mellitus, Diabetes Care 2013; 36: Suppl. 1, T52-38 Est Avg Gluc 91 mg/dL [facility] Comment: eAG equivalents for HbA1c percentages: HbA1c(%) ?eAG(mg/dL) 6.0 ?126 6.5 ?140 7.0 ?154 7.5 ?169 8.0 ?183 8.5 ?197 9.0 ?212 9.5 ?226 10.0 ? 240 Limitations: The eAG calculation has not been validated on women, individuals below 18 years old and above 70 years old, and individuals with hemoglobinopathies. Additional resources are available on the ADA website: http://Safend.MoPowered/DHMCadacalc Jason DYE, Jeremias J, Ayo R, et al. ??Translating the A1C assay into estimated average glucose values. ??Diabetes Care 2008:31(8):9789-3793. Blood specimen (specimen) 10/24/2015 1:40 PM EDT 10/24/2015 1:47 PM EDT Narrative Resulting Agency Comment Spec In Lab Cayden Mccann MD CHEMISTRY ORDERABLE S [facility] [place] [address] * (ABNORMAL) Lipid panel (fasting) (10/24/2015 1:40 PM EDT) Chol, Total 149 <=199 mg/dL [facility] Comment: Recommendations of the NCEP Adult Treatment Panel for the following risk cutoff thresholds for the [place] population: Desirable: <200 mg/dL Borderline High: 200-239 mg/dL High: > or = 240 mg/dL Triglycerides 248(H) <=149 mg/dL [facility] Comment: Reference Range: Normal triglycerides: ??<150 mg/dL Borderline high: ??150-199 mg/dL High: ??200-499 mg/dL Very high: ??>lb=216 mg/dL EVELIA 2001; 285(19):5039-0390 HDL 42 >=40 mg/dL [facility] Comment: Reference range: ??Low HDL: ?? < 40 mg/dL ??Normal: ?40-60 mg/dL ??Desirable: > 60 mg/dL EVELIA 2001; 285(19):7651-2005 LDL Cholesterol 57 <=99 mg/dL [facility] Comment: Reference range: ?? Optimal: ?<100 mg/dL ?? Near Optimal/Above Optimal: ?? 100-129 mg/dL ?? Borderline high: ?130-159 mg/dL ?? High: ? 160-189 mg/dL ?? Very high: ?>cz=087 mg/dL EVELIA 2001: 285(19):5651-3208 Chol/HDL Ratio 3.5 ratio [facility] Comment: A Cholesterol to HDL ratio below 4:1 is desirable. ??Studies suggest that increased CAD risk occurs at ratios above 5 for females and above 6 for men. ? [place] Heart Association ??(http://www.americanheart.org) ? [place] Int Med, 1994; 121:641 ? AM J Med, 1998; 105(1A):48S Blood specimen (specimen) 10/24/2015 1:40 PM EDT 10/24/2015 1:47 PM EDT Narrative Resulting Agency Comment Spec In Lab Cayden Mccann MD CHEMISTRY ORDERABLE S [facility] [place] [address] * IgG 4 (10/24/2015 1:40 PM EDT) [facility] IgG 4 28.4 4.0 - 86.0 mg/dL [facility] Comment: Test Performed by Felton Garner, [facility], [address] [place] [address] Lei Jung M.D., Ph.D., Director of Laboratories , [facility] [id number] Blood specimen (specimen) 10/24/2015 1:40 PM EDT 10/25/2015 8:53 AM EDT Narrative Resulting Agency Comment Spec In Lab Cayden Mccann MD IMMUNOLOGY ORDERABL ES Performing Organization Address [facility]/ZIP Co de Phone Number [facility] [place] [address] * (ABNORMAL) Lipase (10/24/2015 1:40 PM EDT) [facility] Lipase 168(H) 0 - 60 unit/L [facility] Blood specimen (specimen) 10/24/2015 1:40 PM EDT 10/24/2015 1:47 PM EDT Narrative Resulting Agency Comment Spec In Lab Cayden Mccann MD CHEMISTRY ORDERABLE S Performing Organization Address [facility]/ZIP Co de Phone Number [facility] [place] [address] * (ABNORMAL) Comprehensive metabolic panel (non-fasting) (10/24/2015 1:40 PM EDT) [facility] Glucose Lvl 114 65 - 199 mg/dL [facility] Comment:Diabetes: >=200 mg/d L plus symptoms BUN 6(L) 8 - 18 mg/dL [facility] Creatinine 0.79 0.70 - 1.20 mg/dL [facility] Comment: Please note that the pediatric reference intervals supplied above were not validated at [facility]. Results from pediatric patients should be interpreted in conjunction to the patient's age, height and muscle mass. Sodium 139 135 - 145 mmol/L [facility] Potassium 4.2 3.5 - 5.0 mmol/L [facility] Comment: Please note: ??Patients with WBC >100,000 may have falsely elevated Potassium levels. ??For accurate Potassium quantification in these patients send serum separator tube (gold top) for subsequent determinations. ??Contact the Clinical Chemistry Laboratory if there are any questions. Chloride 100 98 - 107 mmol/L [facility] CO2 22 22 - 31 mmol/L [facility] Anion Gap 17(H) 5 - 15 mmol/L [facility] Calcium 9.7 8.5 - 10.5 mg/dL [facility] Total Protein 7.8 6.1 - 8.0 gm/dL [facility] Albumin 4.7 3.2 - 5.2 gm/dL [facility] AST 46(H) 0 - 30 unit/L [facility] ALT 41(H) 0 - 30 unit/L [facility] Alk Phos 112(H) 40 - 104 unit/L [facility] Total Bilirubin 1.0 0.2 - 1.3 mg/dL [facility] Bili, Direct 0.3 0.0 - 0.3 mg/dL [facility] Estimated GFR >60 >=60 [facility] Comment: This estimated GFR (eGFR) value [...] the following links into your internet browser. [email or web address] Blood specimen (specimen) 10/24/2015 1:40 PM EDT 10/24/2015 1:47 PM EDT Narrative Resulting Agency Comment Spec In Lab Cayden Mccann MD CHEMISTRY ORDERABLE S Performing Organization Address City/State/[facility] Co de Phone Number [facility] [place] [address] documented in this encounter Visit Diagnoses Diagnosis Acute biliary pancreatitis Acute pancreatitis Acute biliary pancreatitis Acute pancreatitis documented in this encounter Care Teams Applications Engineer Manufacturing Relationship Specialty Start Date End Date Duncan Paul MD [address] [place] [id number] PCP - General General Internal Medicine 10/03/15 documented as of this encounter
--- OUTSIDE RECORDS SUMMARY | 2023-09-10 14:48 | XMS_ITS | Encounter Summary ---
[place] [address] Care Team Providers Care Shop And Alteration Tailor Name Role Phone Duncan Paul MD Primary Care Provider Encounter Details Date Type Department Care Team (Late st Contact Info) Description 03/29/2020 [place] [phone] Lei Kirk Social History Tobacco Use Types [...] * Telephone Encounter - Lei Kirk - 03/29/2020 1:54 PM EST [facility] CLINICAL SAFETY CHECKLIST 03/29/2020 Lei Kikr Elaina Bangura 1954 [facility] [address] [id number] : 1970 REFERRING PROVIDER: Renetta Green PRIMARY CARE PROVIDER: Duncan Paul MD PRIMARY SYMPTOM (PROCEDURE INDICATION): nausea/vomiting SAFETY QUESTIONS FOR THE PATIENT IS THE PATIENT'S PRIMARY INSURANCE CARRIER [employer], CIGNA, AETNA, OR BLUE CROSS BLUE SHIELD? No (if so, test is not covered; notify RMD and cancel referral) DOES THE PATIENT HAVE CROHN'S DISEASE (ULCERATIVE COLITIS IS OK)? No GASTROINTESTINAL SURGERY IN THE PAST THREE MONTHS? No HAS THE PATIENT HAD A GASTROINTESTINAL OBSTRUCTION, FISTULA, OR STRICTURE? No HAS THE PATIENT HAD A GASTRIC BEZOAR? No PACEMAKER/DEFIBRILLATOR? No NEUROSTIMULATOR? No CAN THE PATIENT SWALLOW A PILL? Yes NUT ALLERGY? No IF YES, please inform the patient that the test cannot be scheduled due to safety concerns about testing, and the patient should speak with their provider to consider alternative testing. The cashier tube room should also contact the provider's office directly to notify them that we are unable to schedule due to a contraindication to testing. Then, delete the remainder of this checklist and close out thereferral. QUESTIONS FOR THE PATIENT DOES THE PATIENT TAKE A PPI? No Patients on PPI need to hold their PPI for 7 days prior to testing and cannot take any other acid therapy until completing testing. APPOINTMENT NOTES TEMPLATE Document the correct appointment notes template depending on if an anorectal manometry is also requested. SmartPill only: SMARTPILL ONLY, symptom: nausea/vomiting, RMD: Renetta Green, PCP: Duncan Paul MD, (At exit, the RMD for appointment notes is the GI provider who saw the patient) documented in this encounter Plan of Treatment Not on file documented as of this encounter Visit Diagnoses Not on filedocumented in this encounter Care Teams Shop And Alteration Tailor Relationship Specialty Start Date End Date Duncan Paul MD [address] [place] [id number] PCP - General General Internal Medicine 10/03/15 documented as of this encounter
--- OUTSIDE RECORDS SUMMARY | 2023-09-10 14:48 | XMS_ITS | Encounter Summary ---
Author [place] [address] Care Team Providers Care Microarray Analyst Name Role Phone Duncan Paul MD Primary Care Provider [phone] Encounter Details Date Type Department Care Team (Late st Contact Info) Description 06/09/2016 Telephone [place] [id number] Nazia Tillman, RN Social History Tobacco Use [...] Telephone Encounter - Nazia Tillman, RN - 06/09/2016 3:38 PM EDT Elaina called the clinic today with complaints of ongoing vomiting and diarrhea. She is s/p lap rocco with Dr. Hernandez on 06/04/16. She was having these issues prior to surgery and per Dr. Hernandez's note he explained that removing her gallbladder may not eliminate her symptoms. In speaking to her she feels as though the diarrhea has let us some today and has been able to keep water down since noon. Explained that Dr. Hernandez is away but she should be evaluated in our ED. She would like to wait until tomorrow as she lives a distance away and is feeling somewhat ok at the moment. Encouraged her to seek care sooner if she starts vomiting again or her diarrhea worsens. She verbalized an understanding a nd is in agreement with the plan. documented in this encounter Plan of Treatment Not on file documented as of this encounter Visit Diagnoses Not on filedocumented in this encounter Care Teams Microarray Analyst Relationship Specialty Start Date End Date Duncan Paul MD [address] [place] [id number] PCP - General General Internal Medicine 10/03/15 documented as of this encounter
--- OUTSIDE RECORDS SUMMARY | 2023-09-10 14:48 | XMS_ITS | Encounter Summary ---
Author Organization [facility] [place] [address] Care Team Providers Care Manager Diabetes Name Role Phone Viviana Chandler MD Primary Care Provider [phone] Encounter Details Date Type Department Care Team (Latest Contact Info) Description 09/24/2015 - 09/24/2015 11:59 PM EDT Hospital Encounter [place] [phone] Cayden Mccann MD [facility] [place] [address] Pain Discharge Disposition: Home Social History Tobacco [...] Associated Diagnosis Comments FILM LIBRARY STORAGE ONLY MR ABDOMEN Routine 09/24/2015 12:00 AM EDT Pain documented in this encounter Results * Film Library- Storage only MR Abdomen (09/24/2015 12:00 AM EDT) Narrative [facility] - 10/06/2015 8:04 AM EDT This exam is for storage only and is auto-finalizing. Cayden Mccann MD IMG FILM LIBRARY OR DERABLES Performing Organization Address City/State/[facility] Co de Phone Number [place], [place] documented in this encounter Visit Diagnoses Diagnosis Pain Generalized pain documented in this encounter Care Teams Manager Diabetes Relationship Specialty Start Date End Date Viviana Chandler MD [facility] [address] [place] [address] PCP - General 04/03/13 10/02/15 documented as of this encounter
--- OUTSIDE RECORDS SUMMARY | 2023-09-10 14:48 | XMS_ITS | Encounter Summary ---
Author Organization [facility] [place] [address] Care Team Providers Care Bridal Service Sales And Management Name Role Phone Viviana Chandler MD Primary Care Provider [phone] Encounter Details Date Type Department Care Team (Latest Contact Info) Description 09/18/2015 - 09/18/2015 12:04 AM EDT Hospital Encounter [place] [phone] Cayden Mccann MD [facility] [place] [address] Pain Discharge Disposition: Home Social History Tobacco [...] Associated Diagnosis Comments FILM LIBRARY STORAGE ONLY DX ABDOMEN Routine 09/18/2015 12:00 AM EDT Pain documented in this encounter Results * Film Library- Storage only DX Abdomen (09/18/2015 12:00 AM EDT) Narrative [facility] - 10/06/2015 8:01 AM EDT This exam is for storage only and is auto-finalizing. Cayden Mccann MD IMG FILM LIBRARY OR DERABLES Performing Organization Address City/State/[facility] Co de Phone Number [place], [place] documented in this encounter Visit Diagnoses Diagnosis Pain Generalized pain documented in this encounter Care Teams Bridal Service Sales And Management Relationship Specialty Start Date End Date Viviana Chandler MD [facility] [address] [address] PCP - General 04/03/13 10/02/15 documented as of this encounter
--- OUTSIDE RECORDS SUMMARY | 2023-09-10 14:48 | XMS_ITS | Encounter Summary ---
Author Organization [facility] [place] [address] Care Team Providers Care Cuff Slitter Name Role Phone Duncan Paul MD Primary Care Provider [phone] Encounter Details Date Type Department Care Team (Late st Contact Info) Description 06/04/2016 12:18 PM EDT - 06/04/2016 6:13 PM EDT Hospital [place] [id number] Marcelina Hernandez MD [facility] [place] [address] Discharge Disposition: Home Social History Tobacco Use [...] Sign Reading Time Taken Comments Blood Pressure 105/65 06/04/2016 5:00 PM EDT Pulse 67 06/04/2016 1:09 PM EDT Temperature 37.1 ??C (98.8 ??F) 06/04/2016 4:45 PM ED T Respiratory Rate 16 06/04/2016 4:45 PM EDT Oxygen Saturation 95% 06/04/2016 5:15 PM EDT Inhaled Oxygen Concentration - - Weight - - Height - - Body Mass Index - - documented in this encounter Discharge Instructions * Discharge Instructions* Kayley Huston - 06/04/2016 5:42 PM EDT POST ANESTHESIA INSTRUCTIONS Go home, rest, use caution on stairs. Change positions slowly. Do not smoke if you are alone. Diet light to regular as tolerated today. If nausea occurs start with clear liquids and progress slowly. No driving, operating machinery, alcoholic beverages and no important decisions for 24 hours. Monitor IV site for signs and symptoms of infection: increasing redness, swelling, foul drainage, if occurs contact M.D. Patients who have had endotrachial tubes (this tube, used by anesthesia department, is passed down your throat after you are asleep, to ensure safe air passage during your operation). A sore throat is normal due to the tube. Cold liquids or soothing lozenges will help ease the discomfort. The generalized muscle aches are due to the medication given to you just before the tube is inserted. As the medication wears off, you may develop muscle soreness, which usually goes away in 12-24 hours. * Patient Instructions* Richard Marr MD - 06/04/2016 4:43 PM EDT Instructions following Laparoscopic Cholecystectomy Wound Care: Keep dressings/Band-Aids on incisions for the next 2 days. Do not get dressings wet. Ifthey become wet or soaked with drainage you may change them with fresh ones as needed. If there arepieces of tape directly on the incision (steri-strips or butterflys), please leave them on until they fall off on their own. You may trim them back as they begin to peel up. After 2 days you may remove dressing/Band-Aids and leave open to air. You may now shower and get incisions wet. Pat dry immediately following. Do not scrub them vigorously for the next 2-3 weeks. Do not soak incision(s) under water for the next 2 weeks (i.e. soaking in bath or swimming) as this maypromote a wound infection. Your stitches will dissolve and do not need to be removed. Activity: No heavy lifting more than 10-15 pounds for the next 2 weeks, then you may gradually liftheavier objects as tolerated by discomfort. Otherwise activity as tolerated by your comfort level. Call Doctor for: Please call if you notice worsening redness or drainage from incision(s) lasting longer than 5 days after your surgery, any foul-smelling drainage from the incision, pain not controlled by pain medications, persistent nausea or vomiting, or for any fevers greater than 101.3 F. The number for questions is [phone] before 5 PM weekdays and [phone] after 5 PM and weekends. Pain Medication: No driving for 8 hours after any dose of opioid pain medication if one was prescribed for you. You may use ibuprofen (motrin, advil) in addition to this medication if your pain is not totally controlled. You have been given a prescription for pain medication for the next few days. Please follow up withyour primary care physician in regards to management of your chronic pain. Follow-up: Follow-up appointment will be scheduled with Dr. Hernandez in 4 weeks. Appointment will be mailed to you. Please call [phone] (clinic number for appointments) to confirm date and time of your appointment if you do not receive your apointment in 3 weeks. Future Appointments Date Time Provider Department Center 07/03/2016 1:20 PM Marcelina Hernandez MD [facility] documented in this encounter Medications at Time of Discharge Medication Sig Dispensed Refills Start Date End Date aspirin 81 mg Tablet, Delayed Release (E.C.)Indications:hist ory of CVA Take 81 mg by mouth daily. Indications: history of CVA gabapentin (NEURONTIN) 400 mg CapsuleIndications:Acu te biliary pancreatitis take 3 capsule nightly 12 08/17/2015 spironolactone (ALDACTONE) 50 mg TabletIndications:Acut e biliary pancreatitis TAKE ONE TABLET BY MOUTH EVERY DAY 1 09/26/2015 ibuprofen (ADVIL;MOTRIN) 200 mg Tablet Take 3 tablets by mouth every 6 hours for 5 days. 60 tablet 06/04/2016 06/09/2016 oxyCODONE (ROXICODONE) 5 mg Tablet Take 1 tablet by mouth every 4 hours as needed for Pain. 30 tablet 06/04/2016 02/28/2020 FLUoxetine (PROZAC) 40 mg CapsuleIndications:do ctive depression from pancreatitis Take 40 mg by mouth daily. 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 30 tablet 10/24/2015 02/28/2020 documented as of this encounter H&P Notes * Marcelina Hernandez MD - 06/04/2016 1:15 PM EDT Patient Name: Elaina Bangura Patient Age: 45 y.o. Birthdate: 1970 Admit date: 06/04/2016 Attending Physician: Marcelina Hernandez MD I saw Elain[place] in the [place] area. She is with her mother - Kathy. No changes since I saw her on Wednesday. OK to proceed as planned for min invasive cholecystectomy with cholangiogram. Elian Hernandez MD 06/04/2016 1:18 PM documented in this encounter Miscellaneous Notes * Op Note - Marcelina Hernandez MD - 06/04/2016 6:13 PM EDT [facility] [place] Patient Name: Elaina Bangura : [id number] MR#: [id number] Case Date: 06/04/2016 Surgeon: Surgeon(s) and Role: * Marcelina Hernandez MD - Primary * Richard Marr MD - Resident-Surgeon Chief Preoperative diagnosis: GALLSTONE PANCREATITIS Postoperative diagnosis: GALLSTONE PANCREATITIS Procedure(s) (LRB): ROBOTIC LAPAROSCOPY,CHOLECYSTECTOMY WITH CHOLANGIOGRAPHY (WRVU 11.47) (N/A) MODIFIER ROBOT,PHILI XI (N/A) LAPAROSCOPIC LIVER BIOPSY (WRVU 16.52) Findings: The gallbladder was actually quite normal-appearing. The kaylie hepatis was also normal without peripancreatic stranding. Liver was quite fatty infiltrated consistent with her known diagnosis of MORENO. Cholecystectomy was straightforward. Intraoperative cholangiogram revealed nice contrast passing down the cystic duct into the common bile duct and out the ampulla into the duodenum as wellas up into the proximal hepatic duct and into the right and left ducts. I do not appreciate any filling defects. Anesthesia: General Estimated Blood Loss: 5 mL Specimens removed during surgery: Gallbladder Drains: None. Surgical Closure: Primary Closure - closure of ALL tissue levels during the original surgery regardless of wires, wickes, drains, or other devices extruding through the incision Disposition: awakened from anesthesia, extubated and taken to the recovery room in a stable condition, having suffered no apparent untoward event. Condition: doing well without problems (Please see the Surgical Encounter Summary for any Implant and Specimen details pertinent to this patient.) HPI/Surgical Indications: Recurrent acute pancreatitis suspected biliary origin. Procedure Description: Ms. Bangura was identified in the preop holding area and taken to the operating room and placed supine on the operating table. Monitoring lines and Venodyne boots were placed. General anesthesia was induced and she was intubated without complication. An oral gastric tube was placed by anesthesia to allow the stomach to become decompressed. Her abdomen was prepped with Chlorapr ep and draped in the usual fashion. IV antibiotics (Unasyn) were given. Using the Veress needle and a small incision in supra umbilical location the Veress needle was inserted through the abdominal wall, downward pressure was applied and the double click sound was heard as the needle was placed through the fascia and underlying peritoneum. Next, the hanging drop saline test was performed to ensure safe intra abdominal location. The Veress needle was connected to gas tubing to create pneumoperitoneum ensuring that good flow was established to a pressure of 15 mmHg. An 8 mm robotic trocar was inserted using Optiview technique through the supra umbilical port incision under direct vision. Pneumoperitoneum was achieved. We then proceeded to place 3 additional 8 mm ports (4 total) across the abdomen with 2 ports in theright abdomen and one port in the left abdomen. These were placed under direct vision. We then proceeded to dock the robotic arms, bringing the working station into the field. The camerawas inserted in the umbilical port (arm 3). Exploration revealed no additional pathology period. The liver was somewhat fatty infilitrated but no evidence of cirrhosis. The gallbladder was mostly norm jz-hgseddjse-jypwdapi distended but without pericholecystic fluid or gallbladder wall thickening. The gallbladder dome was grasped and retracted superiorly using arm 1 and an atraumatic grasper. The cystic duct was exposed high at its insertion on the gallbladder infundibulum using hook cautery in arm 4 and an atraumatic grasper in arm 2. With lateral and outward traction the cystic duct and cystic artery were dissected out using careful and meticulous hook cautery to expose only two tubular structures (cystic artery and cystic duct) entering the gallbladder. Anesthesia had injected Indocyanine Green (ICG) at the beginning of the case and using the ICG mode we could nicely see the CBD andthe cystic duct which measured approximately 3 c in length during fluorescent cholangiographyy. Thecritical view of safety was achieved and the anatomy was unambigious. Next, a 12-gauge Angiocath was introduced under direct vision through a small stab incision in the right upper quadrant through which the cholangiogram catheter was passed. A small ductotomy was created in the cystic duct and the cholangiogram catheter was easily passed down the cystic duct into the common bile duct. The Juan Antonio grasper was used to secure the cholangiogram catheter to the cystic duct for intraoperative cholangiogram. Next, we undocked arm for to allow the C arm to be brought into the field and cholangiogram was performed. Contrast passed easily down the cystic duct into the common bile duct and out the ampulla into the duodenum. We could also easily see contrast going up into the proximal hepatic ducts both on the right and left side. There was no filling defects. Satisfied that there was no problems with her ductal anatomy we re- docked arm for and proceeded with the cholecystectomy. The 12-gauge angiocatheter and cholangiogram catheter were removed. The cystic duct was divided across two Weck clips on the staying in side of the distal cystic duct and one clip on the specimen side. The duct was divided using Endo Tanner. Next the cystic artery was divided in a similar manner using Weck clips. The gallbladder was dissected free of the gallbadderfossa using hook electrocautery. Hemostasis was excellent.. Blood loss was nil. We encountered a pin hole in the gallbladder with some spillage of healthy appearing bile- non purulent. A suction executive director was used to diminish spillage. We introduced a 200 cc EcoSac specimen retrieval bag into the abdomen by undocking arm 2. The gallbladder was placed into the EcoSac as a specimen. We then undocked the robot and under laparoscopic vision extracted the specimen via the umbilical port. The gallbladder specimen had no palpable stonesand this was sent to pathology. Next, we undocked the robotic arms and performed laparoscopic exploration. The gallbladder fossa was inspected and the cystic duct and artery stumps were seen with excellent hemostasis. The gallbladder bed was also nicely hemostatic with no evidence of bile staining. The right upper quadrant was irrigated with warm normal saline. Hemostasis was excellent and the effluent was clear. Next, through the 12-gauge angiocatheter stab incision we introduced a 14-gauge core biopsy needle into the abdomen and under direct vision performed a core biopsy of a community health program representative segment of the liver (segment 5) just to the right of the gallbladder fossa. The core biopsy specimen was sent to pathology to evaluate for progression of her MORENO. The remaining ports were removed under direct visualization. The subcutaneous tissues were irrigated with normal saline. The port skin incisions were closed with 4-0 Monocryl subcuticular stiches. Mastisol/steristrips were placed to cover the incisions. Ms. Bangura was awakened from anesthesia, extubated and brought to the recovery room in stable condition. I was present from start to finish. Infection Bundle used? N/A Attestation: Case Date: 06/04/2016 I was present and I participated during the entire procedure (does not need to include opening and closing). MARCELINA HRENANDEZ MD 06/05/2016 * Brief Op Note - Marcelina Hernandez MD - 06/04/2016 5:33 PM EDT Brief Operative Note Patient Name: Elaina Bangura : [id number] MR#: [id number] Case Date: 06/04/2016 Surgeon: Surgeon(s) and Role: * Marcelina Hernandez MD - Primary * Richard Marr MD - Resident-Surgeon Chief Preoperative diagnosis: GALLSTONE PANCREATITIS Postoperative diagnosis: GALLSTONE PANCREATITIS Procedure(s) (LRB): ROBOTIC LAPAROSCOPY,CHOLECYSTECTOMY WITH CHOLANGIOGRAPHY (WRVU 11.47) (N/A) MODIFIER ROBOT,DAVINCI XI (N/A) LAPAROSCOPIC LIVER BIOPSY (WRVU 16.52) Anesthesia: General Findings: The gallbladder looked grossly normal. Complications: None. Fluids: See anesthesia. Estimated Blood Loss: 5 mL Drains: None. Disposition: awakened from anesthesia, extubated and taken to the recovery room in a stable condition, having suffered no apparent untoward event. Condition: doing well without problems Infection Bundle used? N/A Attestation: Case Date: 06/04/2016 I was present and I participated during the entire procedure (does not need to include opening and closing). (Please see the Surgical Encounter Summary for any Implant and Specimen details pertinent to this patient.) documented in this encounter Plan of Treatment Not on file documented as of this encounter Procedures Procedure Name Priority Date/Time Associated Diagnosis Comments SPECIMEN TO PATHOLOGY Routine 06/04/2016 4:17 PM EDT XR FLUORO NO RAD <1HR - OR USE STAT 06/04/2016 3:51 PM EDT SURGICAL PATHOLOGY REPORT Routine 06/04/2016 3:50 PM EDT SPECIMEN TO PATHOLOGY Routine 06/04/2016 3:50 PM EDT LAPAROSCOPIC LIVER BIOPSY (WRVU 16.52) Yes 06/04/2016 2:08 PM EDT GALLSTONE PANCREATITIS MODIFIER ROBOT,DAVINCI XI Yes 06/04/2016 2:08 PM EDT GALLSTONE PANCREATITIS ROBOTIC LAPAROSCOPY,CHOLECYSTEC MICHELLE WITH CHOLANGIOGRAPHY (WRVU 11.47) Yes 06/04/2016 2:08 PM EDT GALLSTONE PANCREATITIS documented in this encounter Results * Specimen to Pathology (surgical or derm) (06/04/2016 4:17 PM EDT) AP Specimen 06/04/2016 4:17 PM EDT 06/04/2016 4:[address] [facility] - 06/04/2016 4:17 PM EDT Specimen requisition ordered. ??Separate Pathology report to follow Marcelina Hernandez MD PATHOLOGY/CYTOLOGY ORDERABLES Performing Organization Address [facility] de Phone Number [facility] [place] [address] * XR Fluoro No Rad <1Hr - OR Use (06/04/2016 3:51 PM EDT) Narrative RAD - 06/04/2016 3:51 PM EDT This order does not need a radiologist interpretation. ?? Marcelina Hernandez MD IMG FLUORO ORDERAB LES Performing Organization Address [facility] de Phone Number [place], [place] * Surgical Pathology Report (06/04/2016 3:50 PM EDT) Surgical Pathology Report [id number] ?Location: [facility]; A The signing pathologist has (i) examined the relevant preparation(s) for the specimen(s) and (ii) rendered or confirmed the diagnosis(es). . ?Surgical Pathology DIAGNOSIS A - Gallbladder and contents: - ??Gallbladder, negative for diagnostic abnormality. 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 - Mild hemochromatosis (see Note). NOTE: ??Iron stain is 2-3+ in hepatocytes in periportal localization. Possibility of metabolic iron disease should be considered. Electronically signed by: ??Gerardo Khan MD Verified: ??06/08/2016 ?Pathologist CLINICAL INFORMATION Specimen Submitted: A - Gallbladder and contents B - Core liver biopsy Clinical History: Gallstone pancreatitis Clinical Diagnosis: Same SPECIMEN PROCESSING A - ??Labeled/Fixative : Gallbladder and contents, fresh. Quantity/Size: Single, 10.0 x 3.5 x 2.5 cm. Specimen Description: Intact gallbladder. External surface: The serosa is pink-yellow, smooth and glistening. Lumen contents: Red-brown bloody bile. Gallstones: None identified. Mucosa: Red, velvety. Wall: 0.1 cm thick. Duct: 0.3 cm, patent. Lymph Node: Not present. Sections/Processin g: ??(R1) B - ??Labeled/Fixative : Core liver biopsy, fresh. Quantity/Size: Single, 1.2 x 0.1 cm. Tissue Description: Soft, pink needle core biopsy. Sections/Processin g: ??(T1) ??sns [facility] 06/04/2016 3:50 PM EDT Marcelina Hernandez MD PATHOLOGY/CYTOLOGY ORDERABLES Performing Organization Address [facility] Co de Phone Number [facility] [place] [address] * Specimen to Pathology (surgical or derm) (06/04/2016 3:50 PM EDT) AP Specimen 06/04/2016 3:50 PM EDT 06/04/2016 3:[address] [facility] - 06/04/2016 3:50 PM EDT Specimen requisition ordered. ??Separate Pathology report to follow Marcelina Hernandez MD PATHOLOGY/CYTOLOGY ORDERABLES Performing Organization Address [facility]/[place] [address] documented in this encounter Visit Diagnoses Not on filedocumented in this encounter Administered Medications Inactive Administered Medications - up to 3 most recent administrations Medication Order MAR Action Action Date Dose Rate Site acetaminophen (TYLENOL) tablet 650 mg 650 mg, Oral, EVERY 4 HOURS PRN, Starting on Xiomara 06/04/16 at 1643, Until Xiomara 06/04/16 at 2017, Pain, Maximum dose of acetaminophen is 4000 mg from all sources in 24 hours., Routine lactated ringers infusion 1,000 mL 1,000 mL, at 100 mL/hr, Intravenous, CONTINUOUS, Starting on Xiomara 06/04/16 at 1415, Until Xiomara 06/04/16 at 1814, Day of Surgery (Day of Procedure) New Bag 06/04/2016 4:14 PM EDT New Bag 06/04/2016 2:02 PM EDT 1,000 mLs 100 mL/hr oxyCODONE (ROXICODONE) immediate release tablet 5 mg 5 mg, Oral, EVERY 4 HOURS PRN, Starting on Xiomara 06/04/16 at 1643, Until Xiomara 06/04/16 at 2016, Pain, Routine documented in this encounter Active and Recently Administered Medications Times are shown in EDT. Continuous Medication Order 06/02/2016 06/03/2016 06/04/2016 lactated ringers infusion 1,000 mL (CANCELED) 1,000 mL, at 100 mL/hr, Intravenous, CONTINUOUS, Starting on Xiomara 06/04/16 at 1415, Until Xiomara 06/04/16 at 1814, Day of Surgery (Day of Procedure) 1402 (New Bag - Prov ider: Estefany Richardson RN)1447 (Anesthesia Volume Adjustment - Provider: Ketty Gasca CRNA)1606 (Anesthesia Volume Adjustment - Provider: Ketty Gasca CRNA)1614 (New Bag - Provider: Ketty Gasca CRNA) PRN Medication Order 06/02/2016 06/03/2016 06/04/2016 acetaminophen (TYLENOL) tablet 650 mg 650 mg, Oral, EVERY 4 HOURS PRN, Starting on Xiomara 06/04/16 at 1643, Until Xiomara 06/04/16 at 2017, Pain, Maximum dose of acetaminophen is 4000 mg from all sources in 24 hours., Routine BUpivacaine (PF) (MARCAINE) 0.25 % (2.5 mg/mL) injection (CANCELED) ONCE PRN, Starting on Xiomara 06/04/16 at 1640, Until Xiomara 06/04/16 at 2017, Intra-Operative (Intra-Procedure), Routine 1640 (Given - Provid er: Marcelina Hernandez MD) iohexol (OMNIPAQUE) 300 mg/mL solution (CANCELED) ONCE PRN, Starting on Xiomara 06/04/16 at 1641, Until Xiomara 06/04/16 at 2017, Intra-Operative (Intra-Procedure), Routine 1641 (Given - Provid er: Marcelina Hernandez MD - Comment: Cholangiogram contrast) oxyCODONE (ROXICODONE) immediate release tablet 5 mg 5 mg, Oral, EVERY 4 HOURS PRN, Starting on Xiomara 06/04/16 at 1643, Until Xiomara 06/04/16 at 2017, Pain, Routine documented in this encounter Care Teams Cuff Slitter Relationship Specialty Start Date End Date Duncan Paul MD [address] [place] [id number] PCP - General General Internal Medicine 10/03/15 documented as of this encounter
--- OUTSIDE RECORDS SUMMARY | 2023-09-10 14:48 | XMS_ITS | Encounter Summary ---
[place] [address] Care Team Providers Care Permit Agent Name Role Phone Duncan Paul MD Primary Care Provider Encounter Details Date Type Department Care Team (Late st Contact Info) Description 05/06/2016 Telephone [place] [phone] Seng Kaur Social History Tobacco Use Types [...] * Telephone Encounter - Seng Kaur - 05/08/2016 11:01 AM EDT Will forward to on-call Fellow Dr. Roque. * Telephone Encounter - Seng Kaur - 05/06/2016 3:[address] Paul called looking to speak with Dr. Shine regarding this mutual Pt. Dr. Paul can be reached at . documented in this encounter Plan of Treatment Not on file documented as of this encounter Visit Diagnoses Not on filedocumented in this encounter Care Teams Permit Agent Relationship Specialty Start Date End Date Duncan Paul MD [address] [place] [id number] PCP - General General Internal Medicine 10/03/15 documented as of this encounter
--- OUTSIDE RECORDS SUMMARY | 2023-09-10 14:48 | XMS_ITS | Encounter Summary ---
Author Organization [facility] Address [facility] [place] [address] Care Team Providers Care Promotions Producer Name Role Phone Viviana Chandler MD Primary Care Provider [phone] Encounter Details Date Type Department Care Team (Latest Contact Info) Description 09/18/2015 12:10 AM EDT - 09/18/2015 11:59 PM EDT Hospital Encounter [place] [phone] Cayden Mccann MD [facility] [place] [address] Pain Discharge Disposition: Home Social History Tobacco [...] Associated Diagnosis Comments FILM LIBRARY STORAGE ONLY ULTRASOUND STUDY Routine 09/18/2015 12:10 AM EDT Pain documented in this encounter Results * Film Library- Storage only Ultrasound Study (09/18/2015 12:10 AM EDT) Narrative [facility] - 10/06/2015 8:03 AM EDT This exam is for storage only and is auto-finalizing. Cayden Mccann MD IMG FILM LIBRARY OR DERABLES [place], [place] documented in this encounter Visit Diagnoses Diagnosis Pain Generalized pain documented in this encounter Care Teams Promotions Producer Relationship Specialty Start Date End Date Viviana Chandler MD [facility] [address] [facility] [place] [address] PCP - General 04/03/13 10/02/15 documented as of this encounter
--- OUTSIDE RECORDS SUMMARY | 2023-09-10 14:48 | XMS_ITS | Encounter Summary ---
[place] [address] Care Team Providers Care Supervisor Major Appliance Assembly Name Role Phone Duncan Paul MD Primary Care Provider Encounter Details Date Type Department Care Team (Late st Contact Info) Description 06/04/2016 1:53 PM EDT - 06/04/2016 5:24 PM EDT Surgery [place] [phone] Marcelina Hernandez MD [facility] [place] [address] ROBOTIC LAPAROSCOPY,CHOLECYSTECT ASIM WITH CHOLANGIOGRAPHY (WRVU 11.47) Social History Tobacco Use Types Packs/Day Years [...] 101.3 F. The number for questions is [phone] before 5 PM weekdays and [phone] after 5 PM and weekends. Pain Medication: [...] will be mailed to you. Please call [phone] (clinic number for appointments) to confirm date and time of your appointment if you do not receive your apointment in 3 weeks. Future Appointments Date Time Provider Department Center 07/03/2016 1:20 PM Marcelina Hernandez MD [facility] documented in this encounter Medications at [...] Hernandez MD I saw Elaina in the [place] area. She is with her mother - Kathy. No changes since I saw her on Wednesday. OK to proceed as planned for min invasive cholecystectomy with cholangiogram. Elian Hernandez MD 06/04/2016 1:18 PM documented in this encounter Miscellaneous Notes * Op Note - Marcelina Hernandez MD - 06/04/2016 6:13 PM EDT [facility] Operative Note Patient Name: Elaina Bangura : [id number] MR#: [id number] Case Date: 06/04/2016 Surgeon: Surgeon(s) and Role: * Marcelina Hernandez MD - Primary * Richard Marr MD - Resident-Surgeon Chief Preoperative diagnosis: GALLSTONE PANCREATITIS Postoperative diagnosis: GALLSTONE PANCREATITIS Procedure(s) (LRB): ROBOTIC LAPAROSCOPY,CHOLECYSTECTOMY WITH CHOLANGIOGRAPHY (WRVU 11.47) (N/A) MODIFIER ROBOT,IFEOMAINCI XI (N/A) LAPAROSCOPIC LIVER BIOPSY (WRVU 16.52) [...] of cirrhosis. The gallbladder was mostly norm [id number]-xrhlicgze-ndlwnpzo distended but without pericholecystic fluid or gallbladder [...] healthy appearing bile- non purulent. A suction well tester was used to diminish spillage. We introduced [...] vision performed a core biopsy of a herbicide service sales representative segment of the liver (segment 5) [...] need to include opening and closing). MARCELINA HERNANDEZ MD 06/05/2016 * Brief Op Note - Marcelina Hernandez MD - 06/04/2016 5:33 PM EDT Brief Operative Note Patient Name: Elaina Bangura : [id number] MR#: [id number] Case Date: 06/04/2016 Surgeon: Surgeon(s) and Role: [...] PM EDT 06/04/2016 4:[address] [facility] - 06/04/2016 4:17 PM EDT Specimen requisition ordered. ??Separate Pathology report to follow Marcelina Hernandez MD PATHOLOGY/CYTOLOGY ORDERABLES Performing Organization Address [facility] de Phone Number [facility] [place] [address] * XR Fluoro No Rad <1Hr - OR Use (06/04/2016 3:51 PM EDT) Narrative RAD - 06/04/2016 3:51 PM EDT This order does not need a radiologist interpretation. ?? Marcelina Hernandez MD IMG FLUORO ORDERAB LES Performing Organization Address [facility] de Phone Number [place], [place] * Surgical Pathology Report (06/04/2016 3:50 PM EDT) Surgical Pathology Report [id number] ?Location: [facility]; A The signing pathologist has (i) examined [...] needle core biopsy. Sections/Processin g: ??(T1) ??sns [facility] 06/04/2016 3:50 PM EDT Marcelina Hernandez MD PATHOLOGY/CYTOLOGY ORDERABLES Performing Organization Address [facility] [place] [address] * Specimen to Pathology (surgical or derm) (06/04/2016 3:50 PM EDT) AP Specimen 06/04/2016 3:50 PM EDT 06/04/2016 3:[address] [facility] - 06/04/2016 3:50 PM EDT Specimen requisition ordered. ??Separate Pathology report to follow Marcelina Hernandez MD PATHOLOGY/CYTOLOGY ORDERABLES Performing Organization Address [facility]/[place] [address] documented in this encounter Visit Diagnoses Not on filedocumented in this encounter Administered Medications Inactive Administered Medications - up to 3 most recent administrations Medication Order MAR Action Action Date Dose Rate Site acetaminophen (TYLENOL) tablet 650 mg 650 mg, Oral, EVERY 4 HOURS PRN, Starting on Xiomara 4/13/17 at 1643, Until Xiomara 06/04/16 at 2017, Pain, Maximum dose of acetaminophen is 4000 mg from all sources in 24 hours., Routine BUpivacaine (PF) (MARCAINE) 0.25 % (2.5 mg/mL) injection ONCE PRN, Starting on Xiomara 06/04/16 at 1640, Until Xiomara 06/04/16 at 2017, Intra-Operative (Intra-Procedure), Routine Given 06/04/2016 4:40 PM EDT 26 mLs 19- Surgical Site iohexol (OMNIPAQUE) 300 mg/mL solution ONCE PRN, Starting on Xiomara 06/04/16 at 1641, Until Xiomara 06/04/16 at 2017, Intra-Operative (Intra-Procedure), Routine Given 06/04/2016 4:41 PM EDT 10 mLs lactated ringers infusion 1,000 mL 1,000 mL, [...] 2017, Pain, Routine documented in this encounter Active [...] 1643, Until Xiomara 06/04/16 at 2016, Pain, Maximum dose of acetaminophen is 4000 mg from all sources in 24 hours., Routine BUpivacaine (PF) (MARCAINE) 0.25 % (2.5 mg/mL) injection (CANCELED) ONCE PRN, Starting on Xiomara 06/04/16 at 1640, Until Xiomara 06/04/16 at 2016, Intra-Operative (Intra-Procedure), Routine 1640 (Given - Provid er: Marcelina Hernandez MD) iohexol (OMNIPAQUE) 300 mg/mL solution (CANCELED) ONCE PRN, Starting on Xiomara 06/04/16 at 1641, Until Xiomara 06/04/16 at 2016, Intra-Operative (Intra-Procedure), Routine 1641 (Given - Provid er: Marcelina Hernandez MD - Comment: Cholangiogram contrast) oxyCODONE (ROXICODONE) immediate release tablet 5 mg 5 mg, Oral, EVERY 4 HOURS PRN, Starting on Xiomara 06/04/16 at 1643, Until Xiomara 06/04/16 at 2017, Pain, Routine documented in this encounter Care Teams Supervisor Major Appliance Assembly Relationship Specialty Start Date End Date Duncan Paul MD [address] [place] [id number] PCP - General General Internal Medicine 10/03/15 documented as of this encounter
--- OUTSIDE RECORDS SUMMARY | 2023-09-10 14:48 | XMS_ITS | Encounter Summary ---
[place] [address] Care Team Providers Care Zmt Operator Name Role Phone Duncan Paul MD Primary Care Provider Encounter Details Date Type Department Care Team (Late st Contact Info) Description 02/05/2016 Telephone [place] [phone] Seng Kaur Social History Tobacco Use Types [...] * Telephone Encounter - Seng Kaur - 02/05/2016 10:34 AM EST At Pt's and their PCP's request attempted to contact them to reschedule their 2x cancelled and 1 no-showed appointment with MD Sam Shine. Men'S Locker Room Attendant has been unable to reach Pt. Left VM 01/26 Left VM and sent Letter 02/04 documented in this encounter Plan of Treatment Not on file documented as of this encounter Visit Diagnoses Not on filedocumented in this encounter Care Teams Zmt Operator Relationship Specialty Start Date End Date Duncan Paul MD [address] [place] [id number] PCP - General General Internal Medicine 10/03/15 documented as of this encounter
--- OUTSIDE RECORDS SUMMARY | 2023-09-10 14:48 | XMS_ITS | Encounter Summary ---
[place] [address] Care Team Providers Care Sales Professional Name Role Phone Duncan Paul MD Primary Care Provider [phone] Reason for Visit * Reason Comments Establish Care * Consultation (Routine) - Closed Specialty Diagnoses / Procedures Referred By Sulaiman reyes Referred To Contact General Surgery Diagnoses MORENO (nonalcoholic steatohepatitis) Sam Shine MD [facility] [place] [address] [facility] Gen Surgery [address] [place] [address] Referral ID Status Reason Start Date Expiration Date V isits Requested Visits Authorized [id number] Closed Consult, Test & Treat 05/22/2016 05/22/2017 1 1 Encounter Details Date Type Department Care Team (Late st Contact Info) Description 06/01/2016 8:30 AM EDT Office [place] [address] Marcelina Hernandez MD [facility] [place] [address] Gallstone pancreatitis Social History Tobacco Use Types Packs/Day [...] Sign Reading Time Taken Comments Blood Pressure 143/87 06/01/2016 8:39 AM EDT Pulse 69 06/01/2016 8:39 AM EDT Temperature 36.7 ??C (98.1 ??F) 06/01/2016 8:39 AM ED T Respiratory Rate 16 06/01/2016 8:39 AM EDT Oxygen Saturation 99% 06/01/2016 8:39 AM EDT Inhaled Oxygen Concentration - - Weight 72.7 kg (160 lb 3.2 oz) 06/01/2016 8:39 A M EDT Height - - Body Mass Index 26.66 05/21/2016 10:11 AM EDT documented in this encounter Progress Notes * Marcelina Hernandez MD - 06/01/2016 8:30 AM EDT Is eaten on referral from Dr. Mccann to consider cholecystectomy. She has a history of recurrent acute pancreatitis. Her first attack was on September 15 of last year she was hospitalized for 10 days at [facility]. Since then she has had several attacks requiring hospitalization. Her last attack was in February per report. Since then she has been maintained on a low-fat diet. She has been taking Creon for approximately 2 months-3 capsules with a meal and 1 with a snack. Her other major problem in addition to the pain is the intractable nausea and vomiting. She says I can sometimes go 3-4 days without vomiting-for example this past weekend was pretty good but then it starts up again without any notice. She has symptoms of early satiety and nausea with anorexia. 2-3 years ago she weighed over 200 pounds she currently weighs 150 pounds. Her lowest weight over the past year howeverwas down to 140 pounds. For the nausea symptoms she takes Zofran and Compazine with minimal benefitor palliation. She does not have diarrhea symptoms. Today, she rates her pain as a 6 out of 10 in intensity and localizes it to the epigastric region/upper abdomen. It radiates to her back. She reports having constant pain that waxes and wanes. Eating makes the pain worse per report. Her workup consisted of a CT scan of the abdomen and pelvis without IV contrast as well as an MRCP-I do not have these images to review however the radiographic reports were reviewed in scanned documents. On 09/18/2015 CT scan of the abdomen and pelvis without IV contrast showed diffuse edema in thepancreas with peripancreatic stranding but no pseudocyst formation. The MRI/MRCP performed on 09/24/2015 showed no evidence for cholelithiasis or biliary ductal dilation. No mention of pancreatic divisum. She did have bilateral pleural effusions as well as stranding around the pancreas seen on MRI. Blood work from 10/02/2015 showed albumin of 3.3, total bilirubin 0.51, alkaline phosphatase 202, AST 34, ALT 60, lipase 1184. On 12/03/2015 she underwent EUS per Dr. Mccann and this showed There was no sign of significant endosonographic abnormality in the pancreatic head, body or tail. Specifically, there was no inflammatory changes noted within the pancreas. The duct measured 1.8 mm in the head and tapered normally tothe tail. No lymphadenopathy seen. A core biopsy of the liver was performed at the time of the EUSand this showed moderate-severe steatosis with bile ductal injury and patchy active hepatitis. Past surgical history: Tubal ligation December 2002 Hysterectomy in 2007 Review of systems: She completed a 12 system questionnaire which was notable for the GI related symptoms but associated symptoms such as fatigue. 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 A baby aspirin daily. She also takesNeurontin 300 mg 3 times daily for the neuropathy symptoms. Medications: ??? FLUoxetine (PROZAC) 40 mg Capsule ??? aspirin 81 mg Tablet, Delayed Release (E.C.) ??? prochlorperazine (COMPAZINE) 10 mg Tablet ??? CREON 36,000-114,000- 180,000 unit Capsule, Delayed Release(E.C.) ??? gabapentin (NEURONTIN) 400 mg Capsule ??? spironolactone (ALDACTONE) 50 mg Tablet ??? ondansetron (ZOFRAN, HYDROCHLORIDE,) 4 mg Tablet ??? 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 She worked in the [employer] and says I was the only woman on a 40 man team-I loved it I would love to get back to that job. She has no history of alcohol use. She is currently smoking half a pack per day and has done so for the past 30 years. She lives athome with her mother and father. Her boyfriend's name is Eduardo. Family history: She has no brothers, one sister, [id number] son and one 13-year-old daughter. Hermother and father are both alive and well. There is no family history of pancreatitis. Physical exam: Blood pressure 143/87, pulse 69, temperature 36.7 ??C (98.1 ??F), temperature sourceOral, resp. rate 16, weight 72.7 kg (160 lb 3.2 oz), SpO2 99 %. She is by herself today. She looks somewhat chronically ill appearing and can ambulate onto the exam table without too much difficulty though she definitely winces due to pain when she involves her core muscles. No jaundice. HEENT exam was essentially unremarkable. There is no supraclavicular or cervical adenopathy. Oropharynx was clear. Chest: Clear to auscultation bilaterally Heart: Regular rate and rhythm with no murmurs appreciated Abdomen: Soft, nondistended, tender to palpation in the upper epigastric region but no peritoneal signs. She is quite tender. Pfannenstiel scar with no hernias. Lower extremities: No peripheral edema. Dorsalis pedis pulses are palpable bilaterally. Laboratory studies: Reviewed above. Assessment and plans: I agree with Dr. Mccann that at this point it seems reasonable to consider cholecystectomy given the lack of identifiable etiology for her severe recurrent acute pancreatitis symptomatology. Her episodes of acute pancreatitis are well documented in the scanned documents from [facility] when she had markedly elevated lipase levels-7000 in August and then in the thousands on subsequent admissions to the ED. EUS however in November showed no findings of chronic pancreatitis. She has no gallstones per se on ultrasound and has no alcohol history. Therefore in order to proceed with additional workup I explained that we often remove the gallbladder to remove it fromthe diagnostic equation as long as this can be accomplished safely. We will plan for a minimally invasive cholecystectomy with intraoperative cholangiogram. Informed consent was obtained. Elaina is eager to proceed and recognizes that she may be in a situation after surgery with similar or recurrent pain despite having removed the gallbladder in which case I will plan to refer her back to Dr. Mccann for additional workup. Alternatively, if the gallbladder is the causative etiology then this surgery could be hopefully curative. Elian Hernandez MD 06/01/16 documented in this encounter Plan of Treatment Not on file documented as of this encounter Visit Diagnoses Diagnosis Gallstone pancreatitis Acute pancreatitis documented in this encounter Care Teams Sales Professional Relationship Specialty Start Date End Date Duncan Paul MD [address] [place] [id number] PCP - General General Internal Medicine 10/03/15 documented as of this encounter
--- OUTSIDE RECORDS SUMMARY | 2023-09-10 14:48 | XMS_ITS | Encounter Summary ---
[place] [address] Care Team Providers Care Warehouse Shipping Supervisor Name Role Phone Viviana Chandler MD Primary Care Provider Reason for Visit * Reason Onset Date Comments Chest Pain 04/12/2013 Encounter Details Date Type Department Care Team (Late st Contact Info) Description 04/12/2013 Telephone Internal Medicine at [address] [address] Rissa Phillips RN Chest Pain Social History Tobacco Use Types Packs/Day Years [...] Telephone Encounter - Rissa Phillips RN - 04/12/2013 10:48 AM EST Patient requests a refill of vicodin for rib pain especially at night. The pain has subsided somewhat, she is able to do more adls. Not able to tolerate Tramadol due to nausea. Reviewed with Dr Chandler, who approved #[id number]. Sent to [facility]. documented in this encounter Plan of Treatment Not on file documented as of this encounter Visit Diagnoses Not on filedocumented in this encounter Care Teams Warehouse Shipping Supervisor Relationship Specialty Start Date End Date Viviana Chandler MD [facility] [address] [facility] [place] [address] PCP - General 04/03/13 10/02/15 documented as of this encounter
--- OUTSIDE RECORDS SUMMARY | 2023-09-10 14:48 | XMS_ITS | Encounter Summary ---
[place] [address] Care Team Providers Care Upper Tier Name Role Phone Duncan Paul MD Primary Care Provider Reason for Referral * Consultation (Routine) - Closed Specialty Diagnoses / Procedures Referred By Sulaiman reyes Referred To Contact General Surgery Diagnoses MORENO (nonalcoholic steatohepatitis) Sam Shine MD [facility] [place] [address] [facility] [address] [place] [address] Referral ID Status Reason Start Date Expiration Date V isits Requested Visits Authorized [id number] Closed Consult, Test & Treat 05/22/2016 05/22/2017 1 1 Reason for Visit * Reason Comments Follow-up Encounter Details Date Type Department Care Team (Late st Contact Info) Description 05/21/2016 10:30 AM EDT Office [place] [address] Sam Shine MD [facility] [place] [address] MORENO (nonalcoholic steatohepatitis) Social History Tobacco Use Types Packs/Day Years [...] Sign Reading Time Taken Comments Blood Pressure 161/95 05/21/2016 10:11 AM EDT Pulse 76 05/21/2016 10:11 AM EDT Temperature - - Respiratory Rate - - Oxygen Saturation - - Inhaled Oxygen Concentration - - Weight 71.2 kg (157 lb) 05/21/2016 10:11 AM EDT Height 165.1 cm (5' 5) 05/21/2016 10:11 AM EDT Body Mass Index 26.13 05/21/2016 10:11 AM EDT documented in this encounter Patient Instructions * Patient Instructions* Sam Shine - 05/21/2016 10:30 AM EDT 1. Check labs today 2. Low fat diet (home cook meals - hmnptl-gdcmrnghko-mkrfj meats) 3. Daily exercise 10-15 min 4. Avoid alcohol completely 5. Encourage complete smoking cessation 6. Consider if you have a future attack to come to [facility] ED 7. Procure records from your recent hospitalizations, based on these evaluation if suggestive of biliary pancreatitis will consider [facility] Surgery referral for cholecystectomy 8. Schedule gastric emptying study as soon as possible 9. Stop all narcotics 10-14 days before your emptying study 10. RTC in 1 month 11. Continue the zofran/compazine documented in this encounter Progress Notes * Sam Shine - 05/21/2016 10:30 AM EDT [facility] Department of Gastroenterology Outpatient Clinic Note GI Problem List: Recurrent acute pancreatitis -08/2015 OS Hospitalization - c/b transient renal failure, ALT 1100s, Lipase 1000, --US no cholelithaisis, CBD 3mm, MRCP limited motion artifact, no biliary dilation, CT A/P without contrast - enlarged pancreas, fat stranding --EUS 11/2015 noted normal pancreas, normal gallbladder, retained food during endoscopy despite NPOstatus of 12 hours -01/2016 hospitalization - Lipase 7000, CT findings c/w pancreatitis, ALT 500s -02/2016 Hospitalization per pt for pancreatitis -Normal lipid panel, A1c 4.1, no EtOH use, no family history of pancreatitis -Creon started via PCP (2 tabs with snacks/3 tabs with meals) MORENO Fibrosis -EUS 11/2015 noted steatosis appearance, EUS-Liver guided biopsy noted F2-3 Fibrosis with steatosis Chronic Tobacco Use 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 Pt did not come to subsequent scheduled clinic visits due to transportation issues/cost. Pt endorses 2 hospitalizations for acute pancreatitis since last clinic visit. Furthermore, pt notes chronicupper abdominal pain daily with exacerbating episodes few times/week that last 3-4 hours. Pt has associated nausea and early satiety without postprandial pain/bloating. Pt takes zofran and compazine with marginal benefits. Medications: Current Outpatient Prescriptions on File Prior to Visit Medication Sig Dispense Refill ??? gabapentin (NEURONTIN) 400 mg Capsule take 3 capsule nightly 12 ??? spironolactone (ALDACTONE) 50 mg Tablet TAKE ONE TABLET BY MOUTH EVERY DAY 1 ??? ondansetron (ZOFRAN, HYDROCHLORIDE,) 4 mg Tablet Take 1 tablet by mouth every 8 hours as needed for Nausea. 30 tablet 0 ??? HYDROcodone-acetaminophen 5-325 mg per tablet Take 1 tablet by mouth every 6 hours as needed for Pain. 30 tablet 0 ??? HYDROcodone-acetaminophen (NORCO) 7.5-325 mg Tablet Reported on 05/21/2016 0 ??? ibuprofen (ADVIL;MOTRIN) 400 mg tablet Take 1-2 tablets by mouth every 8 hours as needed for Pain. (Patient not taking: Reported on 10/24/2015) 270 tablet 3 No current facility-administered medications on file prior to visit. PHYSICAL EXAM: Vitals: Last value Range last 24 hrs Temperature Temp: -- Heart Rate Heart Rate: 76 Heart Rate: [76] Blood Pressure BP: (!) 161/95 BP: (161)/(95) Respiratory Rate Resp: -- SpO2 SpO2: -- Wt Readings from Last 3 Encounters: 05/21/16 71.2 kg (157 lb) 12/03/15 72.6 kg (160 lb) 10/24/15 66.7 kg (147 lb) Body mass index is 26.13 kg/(m^2). Exam: Gen: AAOX3, NAD, cooperative HEENT: EOMI, Anicteric sclera, MMM CV: RRR, S1, S2, no murmurs, rub, click or anay appreciated Resp: CTAB, no rales, wheezing, rhonchi, normal respiratory effort Abd: Soft, general TTP with palpation - more so in the left periumbilical area, no daniels's sign, ND, NABS, No HSM appreciated Back: No CVA tenderness noted EXT: No pedal edema Skin: No rashes, sores or ulcers Neuro: Grossly nonfocal Labs: Recent Results (from the past 72 hour(s)) Comprehensive metabolic panel (non-fasting) Result Value Ref Range Glucose Lvl 100 65 - 199 mg/dL BUN 10 8 - 18 mg/dL Creatinine 0.73 0.70 - 1.20 mg/dL Sodium 138 135 - 145 mmol/L Potassium 4.1 3.5 - 5.0 mmol/L Chloride 98 98 - 107 mmol/L CO2 25 22 - 31 mmol/L Anion Gap 15 5 - 15 mmol/L Calcium 9.3 8.5 - 10.5 mg/dL Total Protein 7.9 6.1 - 8.0 gm/dL Albumin 4.7 3.2 - 5.2 gm/dL AST 97 (H) 0 - 30 unit/L ALT 78 (H) 0 - 30 unit/L Alk Phos 142 (H) 40 - 104 unit/L Total Bilirubin 0.6 0.2 - 1.3 mg/dL Bili, Direct 0.2 0.0 - 0.3 mg/dL Estimated GFR >60 >=60 Prothrombin Time Result Value Ref Range PT 12.3 12.0 - 15.0 sec INR 0.9 0.9 - 1.1 APTT Result Value Ref Range PTT 28 25 - 35 sec Hemoglobin A1c Result Value Ref Range Hemoglobin A1C 4.9 4.3 - 5.6 % Est Avg Gluc 94 mg/dL Hemogram Result Value Ref Range WBC 10.2 (H) 4.0 - 9.5 x10(3)/mcL RBC 3.86 (L) 4.00 - 5.21 x10(6)/mcL Hemoglobin 14.4 11.7 - 15.5 gm/dL Hematocrit 41.6 35.7 - 45.8 % MCV 107.8 (H) 82.6 - 94.4 fL MCH 37.3 (H) 27.1 - 32.0 pg MCHC 34.6 31.7 - 35.0 gm/dL Platelets 370 (H) 145 - 357 x10(3)/mcL RDWSD 49.0 (H) 37.0 - 46.0 fL RDWCV 12.4 11.5 - 14.1 % MPV 9.6 7.6 - 12.9 fL nRBC % Auto 0.0 % nRBC Abs Auto 0.000 0.000 - 0.000 x10(3)/mcL Differential, Automated Result Value Ref Range Neutrophils % 69.9 % Neutr Abs (ANC) 7.18 (H) 1.70 - 6.10 x10(3)/mcL Lymphocytes % 21.9 % Lymphocytes Abs 2.2 0.9 - 3.2 x10(3)/mcL Monocytes % 5.4 % Monocyte Abs 0.6 0.3 - 0.9 x10(3)/mcL Eosinophils % 1.8 % Eosinophils Abs 0.2 0.0 - 0.4 x10(3)/mcL Basophils % 0.3 % Basophils Abs 0.0 0.0 - 0.1 x10(3)/mcL Immature Gran % 0.70 % Josseline Gran Abs 0.07 (H) 0.00 - 0.04 x10(3)/mcL Scan, Peripheral Blood Result Value Ref Range Plat Estimate Normal RBC Morphology Abnormal Macrocytes 6-10 /HPF Giant Platelets Less than 1 /HPF ASSESSMENT/PLAN: 45 y.o. female with pmh of chronic RUE neuralgia 2/2 peripheral vascular disease on chronic narcotics (hydrocodone), depression, recurrent acute pancreatitis presents for follow-up. EUS between interval episodes of pancreatitis noted a normal pancreas and gallbladder, liver biopsy noted F2-3 MORENO fibrosis. Endoscopy also noted retained food in the stomach. Records reviewed from [facility] noting multiple episodes of acute pancreatitis with concomitant transient transaminitis with predominantALT elevation. Multiple gallbladder imaging studies have not revealed overt cholelithiasis or sludge. However transaminase elevation with pancreatitis and subsequent normalization suggests biliary pancreatitis. Given biliary pancreatitis hospitalizations, plan at this time for Surgery referral for CCY. In addition, pt symptoms may be multifactorial. Given nausea, early satiety, with retained food on endoscopy, potential for idiopathic/narcotic gastroparesis (A1c normal). Due to these symptoms no marked added clinical utility at this time for pursuing Nm emptying scan at this time. Currently pt nausea manageable continue with current anti-emetics and monitor for any progression of symptoms. RTC in 1 month Recommendations: -Low fat diet (home cook meals - bjjspn-xzujnliaay-fhhdo meats) -Daily exercise 10-15 min -Zofran/Compazine prn -Avoid alcohol completely -Minimize narcotics -Encourage complete smoking cessation -Referral to Surgery for CCY evaluation -RTC in 1 month Electronically signed by: Sam Shine Gastroenterology Fellow [facility] Pager [phone] 05/21/2016 * Cayden Mccann MD - 05/21/2016 10:30 AM EDT I reviewed the note by Dr. Shine and I agree with the assessment and plan as outlined in his notefrom today. documented in this encounter Plan of Treatment Scheduled Referrals Name Type Priority Associated Diagnoses Orde r Schedule Referral to General Surgery Outpatient Referral Routine MORENO (nonalcoholic steatohepatitis) Ordered: 05/22/2016 documented as of this encounter Procedures Procedure Name Priority Date/Time Associated Diagnosis Comments SCAN, PERIPHERAL BLOOD Routine 7 11:11 AM EDT HEMOGRAM Routine 05/21/2016 11:11 AM EDT MORENO (nonalcoholic steatohepatitis) DIFFERENTIAL, AUTOMATED Routine 05/21/2016 11:11 AM EDT MORENO (nonalcoholic steatohepatitis) APTT Routine 05/21/2016 11:11 AM EDT MORENO (nonalcoholic steatohepatitis) PROTHROMBIN TIME Routine 05/21/2016 11:1 1 AM EDT MORENO (nonalcoholic steatohepatitis) CBC (WITH DIFF) Routine 05/21/2016 11:11 AM EDT MORENO (nonalcoholic steatohepatitis) LIPASE Routine 05/21/2016 11:11 AM EDT HEMOGLOBIN A1C Routine 05/21/2016 11:11 AM EDT MORENO (nonalcoholic steatohepatitis) COMPREHENSIVE METABOLIC PANEL (NON-FASTING) Routine 05/21/2016 11:11 AM EDT MORENO (nonalcoholic steatohepatitis) documented in this encounter Results * Lipase (05/21/2016 11:11 AM EDT) Pathologist [facility] Lipase 36 0 - 60 unit/L [facility] Blood specimen (specimen) Venous Draw / Unknown 05/21/2016 11:11 AM EDT 05/21/2016 12:17 PM EDT Narrative Resulting Agency Comment Spec In Lab Cayden Mccann MD CHEMISTRY ORDERABLE S [facility] [place] [address] * Scan, Peripheral Blood (05/21/2016 11:11 AM EDT) Pathologist [facility] Plat Estimate Normal [facility] RBC Morphology Abnormal [facility] Macrocytes 6-10 /HPF [facility] Giant Platelets Less than 1 /HPF [facility] Blood specimen (specimen) 05/21/2016 11:11 AM EDT 05/21/2016 11:30 AM EDT Narrative Resulting Agency Comment Spec In Lab Cayden Mccann MD HEMATOLOGY ORDERABL ES [facility] [place] [address] * (ABNORMAL) Differential, Automated (05/21/2016 11:11 AM EDT) Neutrophils % 69.9 % [facility] Neutr Abs (ANC) 7.18(H) 1.70 - 6.10 x10(3)/[facility] Lymphocytes % 21.9 % [facility] Lymphocytes Abs 2.2 0.9 - 3.2 x10(3)/[facility] Monocytes % 5.4 % [facility] Monocyte Abs 0.6 0.3 - 0.9 x10(3)/[facility] Eosinophils % 1.8 % [facility] Eosinophils Abs 0.2 0.0 - 0.4 x10(3)/[facility] Basophils % 0.3 % [facility] Basophils Abs 0.0 0.0 - 0.1 x10(3)/[facility] Immature Gran % 0.70 % [facility] Comment: Immature granulocytes(IG's)percentage and absolute count will include metamyelocytes, myelocytes, and promyelocytes. Blood smears from CBCs yielding IG's will be scanned manually for concordance. If this scan disagrees with the automated IG or if promyelocytes are noted, a manual differential will be performed. Josseline Gran Abs 0.07(H) 0.00 - 0.04 x10(3)/[facility] Blood specimen (specimen) 05/21/2016 11:11 AM EDT 05/21/2016 11:30 AM EDT Narrative Resulting Agency Comment Spec In Lab Cayden Mccann MD HEMATOLOGY ORDERABL ES [facility] [place] [address] * (ABNORMAL) Hemogram (05/21/2016 11:11 AM EDT) WBC 10.2(H) 4.0 - 9.5 x10(3)/[facility] RBC 3.86(L) 4.00 - 5.21 x10(6)/[facility] Hemoglobin 14.4 11.7 - 15.5 gm/dL [place] Hematocrit 41.6 35.7 - 45.8 % [place] MCV 107.8(H) 82.6 - 94.4 fL [facility] MCH 37.3(H) 27.1 - 32.0 pg [facility] MCHC 34.6 31.7 - 35.0 gm/dL [place] Platelets 370(H) 145 - 357 x10(3)/[facility] RDWSD 49.0(H) 37.0 - 46.0 [facility] RDWCV 12.4 11.5 - 14.1 % [facility] MPV 9.6 7.6 - 12.9 [facility] nRBC % Auto 0.0 % [facility] nRBC Abs Auto 0.000 0.000 - 0.000 x10(3)/[facility] Blood specimen (specimen) 05/21/2016 11:11 AM EDT 05/21/2016 11:30 AM EDT Narrative Resulting Agency Comment Spec In Lab Cayden Mccann MD HEMATOLOGY ORDERABL ES [facility] [place] [address] * Hemoglobin A1c (05/21/2016 11:11 AM EDT) Hemoglobin A1C 4.9 4.3 - 5.6 % [facility] Comment: Reference Range: 4.3 - 5.6% [...] Mellitus, Diabetes Care 2013; 36: Suppl. 1, S67-74 Est Avg Gluc 94 mg/dL [facility] Comment: eAG equivalents for HbA1c percentages: HbA1c(%) ?eAG(mg/dL) 6.0 ?126 6.5 ?140 7.0 ?154 7.5 ?169 8.0 ?183 8.5 ?197 9.0 ?212 9.5 ?226 10.0 ? 240 Limitations: The eAG calculation has not been validated on women, individuals below 18 years old and above 70 years old, and individuals with hemoglobinopathies. Additional resources are available on the ADA website: [email or web address]/[email or web address] Jason DYE, Jeremias J, Ayo R, et al. ??Translating the A1C assay into estimated average glucose values. ??Diabetes Care 2008:31(8):6572-7942. Blood specimen (specimen) 05/21/2016 11:11 AM EDT 05/21/2016 11:30 AM EDT Narrative Resulting Agency Comment Spec In Lab Cayden Mccann MD CHEMISTRY ORDERABLE S [facility] [place] [address] * APTT (05/21/2016 11:11 AM EDT) PTT 28 25 - 35 sec [facility] Comment: The recommended therapeutic range for full dose, unfractionated heparin at [facility] is 80 ? 114 seconds. The use of the anti-Xa (heparin) level rather than the PTT is recommended for monitoring anticoagulation intensity in critically ill patients receiving unfractionated heparin by continuous IV infusion. Blood specimen (specimen) 05/21/2016 11:11 AM EDT 05/21/2016 11:30 AM EDT Narrative Resulting Agency Comment Spec In Lab Cayden Mccann MD HEMATOLOGY ORDERABL ES Performing Organization Address [facility] de Phone Number [facility] [place] [address] * Prothrombin Time (05/21/2016 11:11 AM EDT) PT 12.3 12.0 - 15.0 sec [facility] Comment: An INR <2.0 indicates adequate procoagulant activity for hemostasis in most patients without underlying bleeding disorders, though the INR may not adequately reflect hemostatic capacity in patients with liver disease and synthetic impairment. The recommended target INR range for therapeutic anticoagulation is 2.0 ? 3.0 for most applications, though lower and higher ranges may be appropriate depending on clinical circumstances. INR 0.9 0.9 - 1.1 [facility] Blood specimen (specimen) 05/21/2016 11:11 AM EDT 05/21/2016 11:30 AM EDT Narrative Resulting Agency Comment Spec In Lab Cayden Mccann MD HEMATOLOGY ORDERABL ES Performing Organization Address [facility] de Phone Number [facility] [place] [address] * (ABNORMAL) Comprehensive metabolic panel (non-fasting) (05/21/2016 11:11 AM EDT) Glucose Lvl 100 65 - 199 mg/dL [facility] Comment:Diabetes: >=200 mg/d L plus symptoms BUN 10 8 - 18 mg/dL [facility] Creatinine 0.73 0.70 - 1.20 mg/dL [facility] Comment: Please note that the pediatric reference intervals supplied above were not validated at [facility]. Results from pediatric patients should be interpreted in conjunction to the patient's age, height and muscle mass. Sodium 138 135 - 145 mmol/L [facility] Potassium 4.1 3.5 - 5.0 mmol/L [facility] Comment: Please note: ??Patients with WBC >100,000 may have falsely elevated Potassium levels. ??For accurate Potassium quantification in these patients send serum separator tube (gold top) for subsequent determinations. ??Contact the Clinical Chemistry Laboratory if there are any questions. Chloride 98 98 - 107 mmol/L [facility] CO2 25 22 - 31 mmol/L [facility] Anion Gap 15 5 - 15 mmol/L [facility] Calcium 9.3 8.5 - 10.5 mg/dL [facility] Total Protein 7.9 6.1 - 8.0 gm/dL [facility] Albumin 4.7 3.2 - 5.2 gm/dL [facility] AST 97(H) 0 - 30 unit/L [facility] ALT 78(H) 0 - 30 unit/L [facility] Alk Phos 142(H) 40 - 104 unit/L [facility] Total Bilirubin 0.6 0.2 - 1.3 mg/dL [facility] Bili, Direct 0.2 0.0 - 0.3 mg/dL [facility] Estimated GFR >60 >=60 [facility] Comment: This estimated GFR (eGFR) [...] the following links into your internet browser. [email or web address] Blood specimen (specimen) 05/21/2016 11:11 AM EDT 05/21/2016 11:30 AM EDT Narrative Resulting Agency Comment Spec In Lab Cayden Mccann MD CHEMISTRY ORDERABLE S [facility] [place] [address] documented in this encounter Visit Diagnoses Diagnosis MORENO (nonalcoholic steatohepatitis) Other chronic nonalcoholic liver disease documented in this encounter Care Teams Upper Tier Relationship Specialty Start Date End Date Duncan Paul MD [address] [place] [id number] PCP - General General Internal Medicine 10/03/15 documented as of this encounter
--- OUTSIDE RECORDS SUMMARY | 2023-09-10 14:48 | XMS_ITS | Encounter Summary ---
[place] [address] Care Team Providers Care Truck Leasing Manager Name Role Phone Duncan Paul MD Primary Care Provider [phone] Encounter Details Date Type Department Care Team (Late st Contact Info) Description 10/31/2015 Telephone [place] [phone] Sterling Robledo RN Social History Tobacco Use Types Packs/Day [...] encounter Miscellaneous Notes * Telephone Encounter - Sterling Robledo RN - 10/31/2015 12:50 PM EDT Patient calls the office leaving a message on the RN voicemail stating that her insurance company will only cover 12 pills. Patient seen by Dr. Shine on 10/24/2015 and was prescribed Zofran 4mg tabs, take 1 tablet by mouth every 8 hours as needed for Nausea dispense 30 with zero refills. Called patients pharmacy. Pharmacist states that the insurance will only cover 12 tablets per 30 days and may require a PA for more that that. documented in this encounter Plan of Treatment Not on file documented as of this encounter Visit Diagnoses Not on filedocumented in this encounter Care Teams Truck Leasing Manager Relationship Specialty Start Date End Date Duncan Paul MD [address] [place] [id number] PCP - General General Internal Medicine 10/03/15 documented as of this encounter
--- OUTSIDE RECORDS SUMMARY | 2023-09-10 14:48 | XMS_ITS | Encounter Summary ---
Author Organization [facility] [place] [address] Care Team Providers Care Front End Software Engineer Name Role Phone Duncan Paul MD Primary Care Provider Reason for Visit * Consultation (Routine) - Closed Specialty Diagnoses / Procedures Referred By Sulaiman reyes Referred To Contact Gastroenterology Diagnoses Disease of anus and rectum, unspecified Other chronic pancreatitis Duncan Paul MD [address] [place] [address] [facility] [address] [place] [address] Referral ID Status Reason Start Date Expiration Date V isits Requested Visits Authorized [id number] Closed Consult, Test & Treat Connection [facility] PCP Updated and/or Approved 11/14/2019 04/19/2020 6 6 Encounter Details Date Type Department Care Team (Late st Contact Info) Description 02/28/2020 10:00 AM EST Office [place] [address] Renetta Green PA [facility] [address] Diarrhea, unspecified type; Nausea without vomiting Social History Tobacco Use Types Packs/Day Years [...] Sign Reading Time Taken Comments Blood Pressure 150/82 02/28/2020 9:48 AM EST Pulse 82 02/28/2020 9:48 AM EST Temperature - - Respiratory Rate - - Oxygen Saturation 97% 02/28/2020 9:48 AM EST Inhaled Oxygen Concentration - - Weight 79.1 kg (174 lb 4.8 oz) 02/28/2020 9:48 A M EST Height 165.1 cm (5' 5) 02/28/2020 9:48 AM EST Body Mass Index 29.01 02/28/2020 9:48 AM EST documented in this encounter Progress Notes * Renetta Green PA - 02/28/2020 10:00 AM EST SOCIAL SERVICES MANAGER: Renetta Green PA-C PCP: Duncan Paul MD Requesting Provider: Duncan Paul 02/28/20 REASON FOR CONSULTATION This is a 49 y.o. female with in consultation for diarrhea HPI COMMENTS She has a history of pancreatitis status post CCY [place] [address] Hernandez She was referred to GI to discuss other ways to manage her diarrhea She endorses diarrhea daily over the last several years She has made many dietary changes On a good day, she will have 2-3 bowel movements On a bad day 5+ bowel movements. At the [place] she visits she has to use an out house which is becoming challenging Stool is typically yellow in color. Nocturnal awakening weekly No melena or hematochezia She takes questran powder: 2 scoops in the am and 2 scoops in the afternoon. This worsens her nausea and she takes Zofran. She sees Psychiatry for depression and anxiety - some medication changes- switched from fluoxetine to mirtazapine. This has helped nausea and has helped insomnia Nausea: daily. No vomiting on a regular basis. Takes Zofran daily. She is not prescribed narcotics.She will occasionally take her boyfriends to help with diarrhea. +early satiety She is seeing neurology soon for hand pain/numbness in hands and hips EUS in 2017 revealed retained food in the stomach ROS Notable for the gastrointestinal symptoms as described above. CONSTITUTIONAL: Denies anorexia, fever, or unintended weight change EYES: Denies red or painful eyes ENT: Denies oral ulcers, dysphagia, odynophagia, globus. RESPIRATORY: Denies cough, shortness of breath, wheezing CV: Denies palpitations, chest pain. : Denies dysuria, urinary incontinence, or dyspareunia. MUSC/SKELETAL: Denies chronic joint pains or history of inflammatory arthritis. INTEGUMENTARY: Denies recent skin rash or lesions. NEURO: Denies neuropathy, loss of sensation, facial drooping or unilateral weakness. PSYCH: Denies psychiatric problems. ENDO: Denies frequent urination and excessive hunger or thirst. HEM/LYMPH: Denies easy bleeding or bruising. ALL/IMMUNO: Denies seasonal allergies, frequent colds. ALLERGIES No Known Allergies CURRENT MEDICATIONS Medications reviewed and reconciled in e-DH ??? mirtazapine (REMERON) 30 mg Tablet ??? Vitamin D 25 mcg (1,000 unit) Capsule ??? Magnesium Oxide 250 mg magnesium Tablet ??? ondansetron ODT (Zofran-ODT) 8 mg Tablet, Rapid Dissolve ??? Vitamins B Complex Tablet ??? gabapentin (NEURONTIN) 400 mg Capsule ??? spironolactone (ALDACTONE) 50 mg Tablet ??? Cholestyramine Light 4 gram Powder ??? aspirin 81 mg Tablet, Delayed Release (E.C.) MEDICAL HISTORY Past Medical History: Diagnosis Date ??? Depression Hospitalized in 2008, has had lifelong ??? Migraine not formally diagnosed ??? Peripheral vascular disease SURGICAL HISTORY Past Surgical History: Procedure Laterality Date ??? HYSTERECTOMY 2007 ??? PRO ENDOSCOPIC US EXAM, ESOPH N/A 12/03/2015 UPPER EUS- ENDOSCOPIC ULTRASOUND performed by Cayden Mccann MD at [facility] ENDOSCOPY ??? PRO UNLISTED LAPAROSCOPIC PX LVR 06/04/2016 LAPAROSCOPIC LIVER BIOPSY (WRVU 16.52) performed by Marcelina Hernandez MD at [facility] MAIN OR ??? PRO UPPER GI ENDOSCOPY, DIAGNOSTIC N/A 12/03/2015 EGD, UPPER GI ENDOSCOPY performed by Cayden Mccann MD at [facility] ENDOSCOPY ??? TUBAL LIGATION 2002 CCY SOCIAL HISTORY On disability currently. HABITS Tobacco use- smoke, 1.5 pack per day. No alcohol use. Marijuana- gummy's in past, not currently FAMILY HISTORY Denies family history of celiac disease, esophageal cancer, stomach cancer, colon cancer, pancreatic or liver issues, and IBD. RELEVANT TESTING PHYSICAL EXAM: Patient Vitals for the past 24 hrs: Pulse BP SpO2 02/28/20 0948 82 150/82 97 % Height: 165.1 cm (5' 5) Weight: 79.1 kg (174 lb 4.8 oz) Body mass index is 29.01 kg/m??. GENERAL: Healthy-appearing in no acute distress. Appears stated age. Appropriate weight for height SKIN: No lesions, rashes, lumps, or angiomas on exposed skin NECK: No adenopathy. No thyromegaly HEENT: PERRL, EOMI, mucosa clear without ulceration or lesions, normal dentition LUNGS: Clear to auscultation bilaterally COR: Regular ABD: Soft, non-distended, no tenderness to deep palpation in all 4 quadrants, No rebound or guarding. Normal active BS. No bruits. No organomegaly EXT: No cyanosis, clubbing, or edema NEURO: Alert and oriented to person, place, time, and situation. PSYCH: Mood appropriate. Good eye contact. Normal interaction. Answers all questions appropriately LABS: Lab Results Component Value Date WBC 10.2 (H) 05/21/2016 HGB 14.4 05/21/2016 HCT 41.6 05/21/2016 MCV 107.8 (H) 05/21/2016 PLATELET 370 (H) 05/21/2016 Lab Results Component Value Date NA 138 05/21/2016 K 4.1 05/21/2016 CL 98 05/21/2016 CO2 25 05/21/2016 BUN 10 05/21/2016 CREATININE 0.73 05/21/2016 GLUCOSE 100 05/21/2016 CALCIUM 9.3 05/21/2016 Lab Results Component Value Date ALT 78 (H) 05/21/2016 AST 97 (H) 05/21/2016 ALKPHOS 142 (H) 05/21/2016 BILITOT 0.6 05/21/2016 BILIDIR 0.2 05/21/2016 ALBUMIN 4.7 05/21/2016 PROT 7.9 05/21/2016 Lab Results Component Value Date LIPASE 36 05/21/2016 Lab Results Component Value Date BILIDIR 0.2 05/21/2016 Lab Results Component Value Date BILITOT 0.6 05/21/2016 Lab Results Component Value Date TSH 0.99 (External Lab) 05/29/2005 ASSESSMENT 49-year-old female seen in consultation for diarrhea. She has a history of gallstone pancreatitis and is status post cholecystectomy in 2017. Since then, she has been struggling with diarrhea. She feels this is interfering with her day-to-day activities. She was prescribed cholestyramine powder andtakes 2 scoops in the morning and 2 scoops in the evening with some improvement, though she feels this exacerbates her nausea and finds the taste makes this difficult to consume. She is being referred to gastroenterology to discuss her diarrhea in more detail. We did discuss bile salt diarrhea as a likely etiology, however given persistent and progressive symptoms along with nocturnal awakening, we did discuss proceeding with stool studies. I will also check labs to include celiac serologies. Given nocturnal awakening we will proceed with colonoscopy to e valuate for inflammatory bowel disease or microscopic colitis. Certainly if colonoscopy reveals microscopic colitis or inflammatory bowel disease, treatment strategies will need to be discussed. If negative, recommend continued bile salt sequestrants, however consider switching to colestipol tablets or cholestyramine powder. Her nausea is chronic. In 2017 her nausea was thought to be related to possible delayed gastric emptying. She is not prescribed narcotics currently but does admit to using friends narcotics as neededfor her diarrhea. We discussed how this certainly can exacerbate her nausea. In the past she was using edible marijuana but has discontinued. I have recommended avoiding marijuana entirely due to cannabis hyperemesis syndrome. She did have an EUS in 2017 which revealed retained food in the stomach. She takes Zofran on a daily basis. We did discuss proceeding with a smart pill to help determine whether her nausea may be related to dysmotility. We did discuss the risk of capsule retention. We discussed the importance of avoiding opioids, which can affect the results of smart pill. Pending results, PCP can consider continuing antiemetics or potentially prokinetics if evidence of transit delay. A repeat CT scan can also be considered to evaluate for chronic pancreatitis All of her questions today were answered and she is comfortable with this plan Time Spent With Patient 40 minutes of this 60 visit were spent in [id number] discussion and counseling the patient as detailed per below. 10 minutes spend documenting and reviewing previous, outside records Signed, REBEKAH Lugo 02/28/2020 10:02 AM Section of Gastroenterology & Hepatology [facility] Please note: Voice recognition technology was utilized to dictate this note. Although I do my best to review notes, minor errors in dictation may be present. documented in this encounter Plan of Treatment Scheduled Orders Name Type Priority Associated Diagnoses Orde r Schedule ENDOSCOPY CASE REQUEST: COLONOSCOPY, DIAGNOSTIC Procedures Routine Diarrhea, unspecified type Ordered: 02/28/2020 documented as of this encounter Visit Diagnoses Diagnosis Diarrhea, unspecified type Nausea without vomiting documented in this encounter Care Teams Front End Software Engineer Relationship Specialty Start Date End Date Duncan Paul MD [address] [place] [id number] PCP - General General Internal Medicine 10/03/15 documented as of this encounter
--- OUTSIDE RECORDS SUMMARY | 2023-09-10 14:48 | XMS_ITS | Encounter Summary ---
[facility] Organization [facility] [place] [address] Care Team Providers Care Circuits Engineer Name Role Phone Duncan Paul MD Primary Care Provider Encounter Details Date Type Department Care Team (Late st Contact Info) Description 03/04/2020 3:00 PM EST - 03/04/2020 4:00 PM EST Surgery [place] [id number] Tasneem Sosa MD [facility] [place] [address] COLONOSCOPY FLEXIBLE, WITH BX (WRVU 3.56) Social History Tobacco Use Types Packs/Day Years [...] Sign Reading Time Taken Comments Blood Pressure 96/55 03/04/2020 3:50 PM EST Pulse 65 03/04/2020 3:50 PM EST Temperature 36.7 ??C (98.1 ??F) 03/04/2020 2:08 PM ES T Respiratory Rate 16 03/04/2020 3:50 PM EST Oxygen Saturation 97% 03/04/2020 3:50 PM EST Inhaled Oxygen Concentration - - Weight 81.6 kg (180 lb) 03/04/2020 2:08 PM EST Height 165.1 cm (5' 5) 03/04/2020 2:08 PM EST Body Mass Index 29.95 03/04/2020 2:08 PM EST documented in this encounter Discharge Instructions * Discharge Instructions* Renetta Thornton RN - 03/04/2020 4:17 PM EST Colonoscopy: What to Expect at Home Your Recovery Your doctor will talk to you about when you will need your next colonoscopy. Your doctor can help you decide how often you need to be checked. This will depend on the results of your test and your risk for colorectal cancer. After the test, you may be bloated or have gas pains. You may need to pass gas. If a biopsy was done or a polyp was removed, you may have streaks of blood in your stool (feces) for a few days. Problems such as heavy rectal bleeding may not occur until several weeks after the test. This isn't common. But it can happen after polyps are removed. This care sheet gives you a general idea about how long it will take for you to recover. But each person recovers at a different pace. Follow the steps below to get better as quickly as possible. How can you care for yourself at home? Activity Rest when you feel tired. ?? You can do your normal activities when it feels okay to do so. Diet ?? Follow your doctor's directions for eating. ?? Unless your doctor has told you not to, drink plenty of fluids. This helps to replace the fluidsthat were lost during the colon prep. ?? Do not drink alcohol. Medicines ?? Your doctor will tell you if and when you can restart your medicines. He or she will also give you instructions about taking any new medicines. ?? If you take blood thinners, such as warfarin (Coumadin), clopidogrel (Plavix), or aspirin, be sure to talk to your doctor. He or she will tell you if and when to start taking those medicines again. Make sure that you understand exactly what your doctor wants you to do. ?? If polyps were removed or a biopsy was done during the test, your doctor may tell you not to take aspirin or other anti-inflammatory medicines for a few days. These include ibuprofen (Advil, Motrin) and naproxen (Aleve). Other instructions ?? For your safety, do not drive or operate machinery until the medicine wears off and you can think clearly. Your doctor may tell you not to drive or operate machinery until the day after your test. ?? Do not sign legal documents or make major decisions until the medicine wears off and you can think clearly. The anesthesia can make it hard for you to fully understand what you are agreeing to. Additional Information for Sedation Patients For patients who received sedation: ?? You may have received medications before and/or during your procedure which effects your judgement and reaction time. ?? Do not drive, operate machinery, drink alcoholic beverages or make important decisions for 24 hours. ?? Be careful on stairs as you may be unsteady on your feet. ?? You may eat a regular diet as tolerated. ?? Do not smoke if you are alone. ?? IV site: Slight redness or tenderness is normal, you can use a warm compress if you would like. If tenderness and/or redness increase or if foul drainage occurs, please contact your Doctor. Please call [phone] before 8pm Mon-Fri with problems, questions or concerns. If you call after 8pm or on weekends, call the Hospital at [phone] and ask to speak to the [employer] carbon capture power plant engineer and the turning machine operator helper will contact that person for you. When should you call for help? Call [phone] anytime you think you may need emergency care. For example, call if: ?? You passed out (lost consciousness). ?? You pass maroon or bloody stools. ?? You have trouble breathing. Call your doctor now or seek immediate medical care if: ?? You have pain that does not get better after you take pain medicine. ?? You are sick to your stomach or cannot drink fluids. ?? You have new or worse belly pain. ?? You have blood in your stools. ?? You have a fever. ?? You cannot pass stools or gas. Watch closely for changes in your health, and be sure to contact your doctor if you have any problems. Where can you learn more? [email or web address] View your After Visit Summary and more online at [email or web address] If you would like to provide feedback about your hospital experience, please call the Office of Patient and Family Relations at . If you have received this After Visit Summary in error, please immediately return it in person to the department, or notify the [facility] Privacy Office by calling toll free at between the hours of 8AM and 5PM to arrange for our retrieval of the documents at no cost to you. Content Version: 12.2 ?? [id number] [employer]. Care instructions adapted under license by [facility]. If you have questions about a medical condition or this instruction, always ask your healthcare professional. [employer] disclaims any warranty or liability for your use of this information. documented in this encounter Medications at Time of Discharge Medication Sig Dispensed Refills Start Date End Date mirtazapine (REMERON) 30 mg Tablet Take 45 mg by mouth daily. 02/08/2020 Vitamin D 25 mcg (1,000 unit) Capsule Take 1,000 Units by mouth daily. 02/08/2020 Cholestyramine Light 4 gram Powder Take by mouth as needed. 01/17/2020 Magnesium Oxide 250 mg magnesium Tablet Take 250 mg by mouth 2 times daily. 02/06/2020 ondansetron ODT (Zofran-ODT) 8 mg Tablet, Rapid Dissolve Take 8 mg by mouth as needed. 01/19/2020 Vitamins B Complex Tablet Take 1 tablet by mouth daily. 12/12/2019 aspirin 81 mg Tablet, Delayed Release (E.C.)Indications:history of CVA Take 81 mg by mouth daily. Indications: history of CVA gabapentin (NEURONTIN) 400 mg CapsuleIndications:Acute biliary pancreatitis take 3 capsule nightly 12 08/17/2015 spironolactone (ALDACTONE) 50 mg TabletIndications:Acute biliary pancreatitis TAKE ONE TABLET BY MOUTH EVERY DAY 1 09/26/2015 documented as of this encounter H&P Notes * Tasneem Sosa MD - 03/04/2020 3:00 PM EST Patient Name: Elaina Bangura Patient Age: 49 y.o. Birthdate: 1970 Admit date: 03/04/2020 Attending Physician: Tasneem Sosa MD PROBLEM LIST Patient Active Problem List Diagnosis Code ??? Depression F32.9 ??? PAD (peripheral artery disease) I73.9 ??? Cyanotic fingertip R23.0 ??? Diarrhea R19.7 HISTORY OF PRESENT ILLNESS Elaina Bangura is a 49 y.o. woman with PMHx of depression, recurrent pancreatitis, s/p CCY who presents for colonoscopy today for further evaluation of diarrhea. MEDICATIONS No current facility-administered medications on file prior to encounter. Current Outpatient Medications on File Prior to Encounter Medication Sig Dispense Refill ??? mirtazapine (REMERON) 30 mg Tablet Take 45 mg by mouth daily. ??? Vitamin D 25 mcg (1,000 unit) Capsule Take 1,000 Units by mouth daily. ??? Cholestyramine Light 4 gram Powder Take by mouth as needed. ??? Magnesium Oxide 250 mg magnesium Tablet Take 250 mg by mouth 2 times daily. ??? ondansetron ODT (Zofran-ODT) 8 mg Tablet, Rapid Dissolve Take 8 mg by mouth as needed. ??? Vitamins B Complex Tablet Take 1 tablet by mouth daily. ??? gabapentin (NEURONTIN) 400 mg Capsule take 3 capsule nightly 12 ??? spironolactone (ALDACTONE) 50 mg Tablet TAKE ONE TABLET BY MOUTH EVERY DAY 1 ??? aspirin 81 mg Tablet, Delayed Release (E.C.) Take 81 mg by mouth daily. Indications: history ofCVA PHYSICAL EXAM: Blood pressure 146/90, pulse 67, temperature 36.7 ??C (98.1 ??F), temperature source Skin, height 165.1 cm (5' 5), weight 81.6 kg (180 lb), SpO2 96 %. GEN: Alert, cooperative. Pleasant. In NAD MP I ASA II HEENT: NCAT. Neck supple. LUNGS: Breathing comfortably on RA ABD: soft, NT/ND RECENT LABS No results found for this or any previous visit (from the past 24 hour(s)). ASSESSMENT AND PLAN Elaina Bangura is a 49 y.o. y/o who presents for endoscopic evaluation. Risks extensively discussed including bleeding, infection, reaction to anesthesia, perforation, pancreatitis (if applicable), bile duct injury (if applicable), missing a cancer (if applicable) and/or other unforseen complication.Consent signed and patient well informed of the risks of the procedure. documented in this encounter Miscellaneous Notes * Op Note - Tasneem Sosa MD - 03/04/2020 4:38 PM EST [facility] Operative Note Patient Name: Elaina Bangura : [id number] MR#: [id number] Case Date: 03/04/2020 Surgeon: Surgeon(s) and Role: * Tasneem Sosa MD - Primary Preoperative diagnosis: diarrhea Postoperative diagnosis: * No post-op diagnosis entered * Please see procedure note for complete details. Tasneem Sosa MD 03/05/2020 documented in this encounter Plan of Treatment Not on file documented as of this encounter Procedures Procedure Name Priority Date/Time Associated Diagnosis Comments SURGICAL PATHOLOGY REPORT Routine 03/04/2020 3:54 PM EST SPECIMEN TO PATHOLOGY Routine 03/04/2020 3:54 PM EST SPECIMEN TO PATHOLOGY Routine 03/04/2020 3:54 PM EST Colonoscopy, Flex, W/Control, Bleeding ([id number]) 03/04/2020 3:10 PM EST Diarrhea, unspecified type Colonoscopy, Remv Lesn, Snare ([id number]) 03/04/2020 3:10 PM EST Diarrhea, unspecified type Colonoscopy, Biopsy ([id number]) 03/04/2020 3:10 PM EST Diarrhea, unspecified type COLONOSCOPY Routine 03/04/2020 2:45 PM EST documented in this encounter Results * Surgical Pathology Report (03/04/2020 3:54 PM EST) Surgical Pathology Report [id number] ? Location: 4T; EA07; A The signing pathologist has (i) examined the relevant preparation(s) for the specimen(s) and (ii) rendered or confirmed the diagnosis(es). . ?Surgical Pathology DIAGNOSIS A - Random colon, ??biopsy: Colonic mucosa within normal limits. B - Descending colon, ?? polypectomy: Fragments of tubular adenoma(s). CR-PX Electronically signed by: ??Renu SINGH PhD, Elena Verified: ??03/08/2020 ?Pathologist Performed at: ??-[facility] Dept. of Pathology, [place], [place] SPECIMEN(S) SUBMITTED A - random colon r/o microscopic colitis, biopsy (Multiple) B - descending colon polyps, resection (3) CLINICAL INFORMATION 49-year-old female with diarrhea SPECIMEN PROCESSING A - Labeled/Fixativ e: Random colon rule out microscopic colitis, formalin. Quantity/Size: Multiple, ranging 0.3-0.5 cm. Tissue Description: Soft, pink-red tissues. Sections/Proces sing: Submitted en toto ??in 3 cassettes labeled A1-A3. B - Labeled/Fixativ e: Descending colon polyps, formalin. Quantity/Size: Three, ranging 0.4 and 0.6 cm. Tissue Description: Soft, mcneil-pink tissues. Sections/Proces sing: Submitted en toto ??in 3 cassettes as follows: ?B1: ??Mcneil-pink polyp submitted entirely ?B2: ??Mcneil-pink polyp inked and bisected ?B3: ??Mcneil-pink polyp inked and bisected ??[facility] 03/04/2020 3:54 PM EST Tasneem Sosa MD PATHOLOGY/CYTOLOGY O RDERABLES [facility] [place] [address] * Specimen to Pathology (03/04/2020 3:54 PM EST) AP Specimen 03/04/2020 3:54 PM EST 03/04/2020 3:54 PM EST Narrative [facility] - 03/04/2020 3:54 PM EST Specimen requisition ordered. ??Separate Pathology report to follow Tasneem Sosa MD PATHOLOGY/CYTOLOGY O JIMMIE Performing Organization Address [facility] [place] [address] * Specimen to Pathology (03/04/2020 3:54 PM EST) AP Specimen 03/04/2020 3:54 PM EST 03/04/2020 3:54 PM EST Narrative [facility] - 03/04/2020 3:54 PM EST Specimen requisition ordered. ??Separate Pathology report to follow Tasneem Sosa MD PATHOLOGY/CYTOLOGY Abhishek SAMUEL Performing Organization Address [facility] [place] [address] * COLONOSCOPY (03/04/2020 2:45 PM EST) COLONOSCOPY [facility] Endoscopy Procedure Date: 03/04/2020 2:45 PM ? Patient Name: Elaina Bangura ? N: [id number] ? Date of : 1970 ? Age: 49 ? Order #: [id number] ? Instrument Name: [id number] ? Procedure: ? Colonoscopy Indications: ? Chronic diarrhea Providers: ? Shannan Rodriguez, ? Cinthya Fragoso Referring MD: ?Duncan Paul MD Requesting Provider: Renetta Green Medicines: ? Fentanyl 200 micrograms IV, Midazolam ? 5 mg IV Complications: ? No immediate complications. Procedure: ? Pre-Anesthesia Assessment: ? - [place] Protocol: ? - Pre-procedure Verification: Prior ? [...] the physician, the nurse ? and the mechanical maintenance technician in the procedure ? room. ? [...] I personally performed the entire procedure. ? Tasneem Sosa, 03/04/2020 4:02:54 PM Number of Addenda: 0 Note Initiated On: 03/04/2020 2:45 PM [employer]ATION 03/04/2020 2:45 PM EST Duncan Paul MD GENERAL SURGICAL ORD ERABLES [employer] documented in this encounter Visit Diagnoses Diagnosis Diarrhea- Primary Diarrhea, unspecified type documented in this encounter Admitting Diagnoses Diagnosis Diarrhea documented in this encounter Administered Medications Inactive Administered Medications - up to 3 most recent administrations Medication Order MAR Action Action Date Dose Rate Site fentaNYL (pf) (50 mcg/mL) multi-dose injection ONCE PRN, Starting on Wed03/04/20 at 1512, Until Wed03/04/20 at 1838, Intra-Operative (Intra-Procedure), Routine Given 03/04/2020 3:23 PM EST 50 mcg Given 03/04/2020 3:19 PM EST 50 mcg Given 03/04/2020 3:15 PM EST 50 mcg lactated ringers infusion 100 mL/hr, Intravenous, CONTINUOUS, Starting on Wed03/04/20 at 1415, Until Wed03/04/20 at 1634, Endoscopy (Day of Procedure) New Bag 03/04/2020 2:20 PM EST 100 mL/hr 100 mL/hr midazolam (pf) (Versed) (1 mg/mL) multi-dose injection ONCE PRN, Starting on Wed03/04/20 at 1512, Until Wed03/04/20 at 1838, Intra-Operative (Intra-Procedure), Routine Given 03/04/2020 3:23 PM EST 1 mg Given 03/04/2020 3:19 PM EST 1 mg Given 03/04/2020 3:15 PM EST 1 mg documented in this encounter Active and Recently Administered Medications Times are shown in EST. Continuous Medication Order 03/02/2020 03/03/2020 03/04/2020 lactated ringers infusion (CANCELED) 100 mL/hr, Intravenous, CONTINUOUS, Starting on Wed03/04/20 at 1415, Until Wed03/04/20 at 1634, Endoscopy (Day of Procedure) 1420 (New Bag - Prov ider: Latisha Parikh RN) PRN Medication Order 03/02/2020 03/03/2020 03/04/2020 fentaNYL (pf) (50 mcg/mL) multi-dose injection (CANCELED) ONCE PRN, Starting on Wed03/04/20 at 1512, Until Wed03/04/20 at 1838, Intra-Operative (Intra-Procedure), Routine 1512 (Given - Provid er: Shannan Bauer RN)1515 (Given - Provider: Shannan Bauer RN)1519 (Given - Provider: Shannan Bauer RN)1523 (Given - Provider: Shannan Bauer RN) midazolam (pf) (Versed) (1 mg/mL) multi-dose injection (CANCELED) ONCE PRN, Starting on Wed03/04/20 at 1512, Until Wed03/04/20 at 1838, Intra-Operative (Intra-Procedure), Routine 1512 (Given - Provid er: Shannan Bauer RN)1515 (Given - Provider: Shannan Bauer RN)1519 (Given - Provider: Shannan Bauer RN)1523 (Given - Provider: Shannan Bauer RN) documented in this encounter Care Teams Circuits Engineer Relationship Specialty Start Date End Date Duncan Paul MD [address] [place] [id number] PCP - General General Internal Medicine 10/03/15 documented as of this encounter
--- OUTSIDE RECORDS SUMMARY | 2023-09-10 14:48 | XMS_ITS | Encounter Summary ---
[place] [address] Care Team Providers Care Content Developer Name Role Phone Duncan Paul MD Primary Care Provider [phone] Reason for Visit * Auth/Cert Specialty Diagnoses / Procedures Referred By Sulaiman reyes Referred To Contact Diagnoses Pancreatitis Procedures PRO UPPER GI ENDOSCOPY, DIAGNOSTIC PRO ENDOSCOPIC US EXAM, ESOPH PRO ANESTH, UGI ENDOSCOPY EGD, UPPER GI ENDOSCOPY UPPER EUS- ENDOSCOPIC ULTRASOUND Referral ID Status Reason Start Date Expiration Date Visits Re quested Visits Authorized [id number] 1 1 Encounter Details Date Type Department Care Team (Latest Contact Info) Description 12/03/2015 6:47 AM EDT - 12/03/2015 10:28 AM EDT Hospital En[place] [address] Cayden Mccann MD [facility] [place] [address] Discharge Disposition: Home Social History Tobacco Use [...] 9:13 AM EDT Oxygen Saturation 96% 12/03/2015 9:35 AM EDT Inhaled Oxygen Concentration - - [...] test. You may use ice chips, popsicles, gfrd-klr-dsojnas throat lozenges or sprays that may help [...] better as expected Wednesday-Wednesday Same Day Endo [phone] Otherwise contact [phone] and ask to speak to the dermatology nurse practitioner cosmetic surgeon The patient reports understanding discharge instructions documented [...] of this encounter H&P Notes * Trever Elaien MD - 12/03/2015 8:01 AM EDT Patient [...] (12/03/2015 9:08 AM EDT) Surgical Pathology Report [id number] ? Location: 4T The signing pathologist has [...] biopsies. Sections/Processin g: Totally submitted. (T1) ??pps [facility] 12/03/2015 9:08 AM EDT Cayden Mccann MD PATHOLOGY/CYTOLOGY ORDERABLES [facility] [place] [address] * Specimen to Pathology (surgical or derm) (12/03/2015 9:08 AM EDT) AP Specimen 12/03/2015 9:08 AM EDT 12/03/2015 9:[address] [facility] - 12/03/2015 9:08 AM EDT Specimen requisition ordered. ??Separate Pathology report to follow Cayden Mccann MD PATHOLOGY/CYTOLOGY ORDERABLES [facility] [place] [address] * UPPER EUS-ENDOSCOPIC ULTRASOUND (12/03/2015 7:35 AM EDT) UPPER ENDOSCOPIC ULTRASOUND [facility] Endoscopy Procedure Date: 12/03/2015 7:35 AM ? Patient Name: Elaina Bangura ? [facility]: [id number] ? Date of : 1970 ? Age: 45 ? Order #: [id number] ? Instrument Name: GF-UE [id number] ? Procedure: ? Upper EUS Indications: ? Abnormal abdominal/pelvic CT scan Providers: ? Cayden Mccann MD, Leonie Jolley, ? RN, Gris Nagel, Victim Witness Administrator, ? Nazia Recinos, Trever Elaine MD Referring [...] was made with the 22 gauge ? [facility] needle using a ? transgastric [...] RN) documented in this encounter Care Teams Content Developer Relationship Specialty Start Date End Date Duncan Paul MD [address] [place] [id number] PCP - General General Internal Medicine 10/03/15 documented as of this encounter
--- OUTSIDE RECORDS SUMMARY | 2023-09-10 14:48 | XMS_ITS | Encounter Summary ---
Author Organization [facility] [place] [address] Care Team Providers Care Environmental Health Specialist Name Role Phone Viviana Chandler MD Primary Care Provider Reason for Visit * Reason Comments Chest Pain right sided rib pain under right breast, took a fall last , any movement with right side very painful Depression followup Encounter Details Date Type Department Care Team (Late st Contact Info) Description 04/03/2013 1:05 PM EST Office Visit Internal Medicine at [place] [id number] Viviana Chandler MD [facility] [place] [address] Rib pain (Primary Dx) Discharge Disposition: Home Social History Tobacco Use [...] Sign Reading Time Taken Comments Blood Pressure 140/83 04/03/2013 1:41 PM EST Pulse 62 04/03/2013 1:41 PM EST Temperature 36.6 ??C (97.8 ??F) 04/03/2013 1:41 PM ES T Respiratory Rate - - Oxygen Saturation 98% 04/03/2013 1:41 PM EST Inhaled Oxygen Concentration - - Weight 84.1 kg (185 lb 6.4 oz) 04/03/2013 1:41 P M EST Height 166.4 cm (5' 5.5) 04/03/2013 1:41 PM EST reported Body Mass Index 30.38 04/03/2013 1:41 PM EST documented in this encounter Progress Notes * Viviana Chandler MD - 04/03/2013 2:33 PM EST Subjective: Patient ID: Eliana Bangura is a 42 y.o. female. Chief Complaint Patient presents with ??? Chest Pain right sided rib pain under right breast, took a fall last , any movement with right side very painful ??? Depression followup HPI This a patient who reports that she tripped in the dark in her child's room a few nights ago and fell and hit her abdomen in the right upper quadrant on the corner of the table, she states that the table broke. She has been experiencing significant right upper quadrant pain since, especially with moving from lying down to sitting and with attempting to do any physical work. She has missed the last week appointment for depression; she has a long history of depression, withhistory of [facility], she has not been adhering to medication regimen or to follow uppsychiatric care as she has not had insurance. This winter she has experienced recurrence of depressed mood which he states is interfering with her ability to function and with her marriage. She doesnot have suicidal thoughts, plan or intent and she cites her younger daughter's well-being as her deterrent. Review of Systems Constitutional: Positive for activity change. Negative for fever and chills. Respiratory: Negative. Cardiovascular: Negative. Gastrointestinal: Positive for abdominal pain. Psychiatric/Behavioral: Positive for dysphoric mood. Objective: Physical Exam Vitals reviewed. Constitutional: No distress. Antalgic position with her abdominal muscles in flexion HENT: Head: Atraumatic. Pulmonary/Chest: Bruise rectangular shape in her right upper quadrant along her rib cage edge Abdominal: Tender with palpation of right rib cage edge. Billingsley maneuver is negative, the abdomen is otherwisesoft without guarding Assessment and Plan: No problem-specific assessment & plan notes found for this encounter. Likely rib injury, bruising versus fracture. There no signs or symptoms of underlying organ damage at this time. Patient would like to avoid having an x- ray done in 2 to cost concerns. We will treat with pain control and patient was educated on the time for recovery. Depression: This is a short appointment today and patient is unknown to me. She will followup at a later date with an appointment dedicated to depression evaluation and treatment. documented in this encounter Plan of Treatment Not on file documented as of this encounter Visit Diagnoses Diagnosis Rib pain- Primary Chest pain, unspecified documented in this encounter Care Teams Environmental Health Specialist Relationship Specialty Start Date End Date Viviana Chandler MD [facility] [address] [place] [address] PCP - General 04/03/13 10/02/15 documented as of this encounter
--- OUTSIDE RECORDS SUMMARY | 2023-09-10 14:48 | XMS_ITS | Encounter Summary ---
[place] [address] Care Team Providers Care Functional Architect Name Role Phone Duncan Paul MD Primary Care Provider [phone] Encounter Details Date Type Department Care Team (Late st Contact Info) Description 02/02/2020 Telephone [place] [address] Iraida Gunn Social History Tobacco Use Types Packs/Day Years [...] encounter Miscellaneous Notes * Telephone Encounter - Iraida Gunn - 02/02/2020 11:02 AM EST Patient called and lvm on 01/31/20 at 11:50am. She has been trying to get through to our officeto talk with someone for days concerning her appointment with REBEKAH Bauer on 01/31/20 at 11:00am. Her daughter's boyfriend tested positive for COVID on 01/26/20 and the patient herself has been in quarantine since. I called patient back to reschedule for a later date (when once she issafe to come out of quarantine). Lvm for patient to call us back to reschedule once she is safely able to come out of quarantine. documented in this encounter Plan of Treatment Not on file documented as of this encounter Visit Diagnoses Not on filedocumented in this encounter Care Teams Functional Architect Relationship Specialty Start Date End Date Duncan Paul MD [address] [place] [id number] PCP - General General Internal Medicine 10/03/15 documented as of this encounter
--- OUTSIDE RECORDS SUMMARY | 2023-09-10 14:48 | XMS_ITS | Encounter Summary ---
Author Organization [facility] [place] [address] Care Team Providers Care Substance Abuse Rn Name Role Phone Jamaica Segal Primary Care Provider [phone] Encounter Details Date Type Department Care Team (Late st Contact Info) Description 01/17/2013 Orders Only Internal Medicine at [address] [id number] Jamaica Segal PA [facility] [place] [address] Cyanosis of fingertip (Primary Dx); PAD (peripheral artery disease); Encounter for smoking cessation counseling Social History Tobacco Use Types Packs/Day Years [...] on file documented as of this encounter Progress Notes * Jamaica Segal PA - 01/17/2013 11:01 AM EST Patient stopped by after vascular imaging appointment at [facility]. She also met with Dr. Lange, of vascular surgery, to discuss probable arterial microembolism of finger. Started pt on ASA 325 mg daily as well as simvastatin 40 mg as recommended by Dr. Lange. As patienthas no insurance, chose med from [facility] to be affordable. Reviewed results of LFTs from yesterday. Recommended that she stop Tylenol and switch to ibuprofen 400 - 800 mg with food every 6-8 hours (max 2400 mg/day) and gave rx for Tramadol 50 mg q. 6 hours prn pain. Discussed smoking cessation and gave patient packet of materials. Advised contacting quit line. Wellbutrin will be too expensive, she thinks, and she is hesitant to try Chantix due to her pre-existing depression. She is able to go 5 days without a cigarette and does not experience nicotine withdrawal. She thinks it is more of a habit. She has done well with the e-cigarettes in the past. We cannotofficially recommend these products as they have not been shown to be safe, but suggested trying some other habit that involves her hands and mouth - straws, for example. Encouraged her to keep trying. She will call after a trial of Tramadol and ibuprofen for pain control. Dr. Lange apparently offered amputation, but she declined for now. She prefers to see if she can manage the pain. She knows to call with questions or concerns. documented in this encounter Plan of Treatment Not on file documented as of this encounter Visit Diagnoses Diagnosis Cyanosis of fingertip- Primary Cyanosis PAD (peripheral artery disease) Peripheral vascular disease, unspecified Encounter for smoking cessation counseling Counseling on substance use and abuse documented in this encounter Care Teams Substance Abuse Rn Relationship Specialty Start Date End Date Jamaica Segal PA [facility] [place] [address] PCP - General 01/13/13 04/02/13 documented as of this encounter
--- OUTSIDE RECORDS SUMMARY | 2023-09-10 14:48 | XMS_ITS | Encounter Summary ---
Author Organization [facility] Address [facility] [place] [address] Care Team Providers Care Layout Technician Name Role Phone Duncan Paul MD Primary Care Provider Encounter Details Date Type Department Care Team (Latest Contact Info) Description 03/04/2020 1:34 PM EST - 03/04/2020 4:38 PM EST Hospital Encounter [place] [id number] Tasneem Sosa MD [facility] [place] [address] Diarrhea Discharge Disposition: Home Social History Tobacco Use [...] occurs, please contact your Doctor. Please call [phone] before 8pm Mon-Fri with problems, questions or concerns. If you call after 8pm or on weekends, call the Hospital at [phone] and ask to speak to the Auditor Medical Claims transmission repairer and the cable operator will contact that person for you. When should you call for help? Call [phone] anytime you think you may need emergency [...] any problems. Where can you learn more? myD- View your After Visit Summary and more online at [email or web address] If you would like to provide feedback [...] cost to you. Content Version: 12.2 ?? [id number] [employer]. Care instructions adapted under license by [facility]. If you have questions about a medical condition or this instruction, always ask your healthcare professional. [employer] disclaims any warranty or liability for your [...] Sosa MD - 03/04/2020 4:38 PM EST [facility] Operative Note Patient Name: Elaina Bangura : [id number] MR#: [id number] Case Date: 03/04/2020 Surgeon: Surgeon(s) and Role: [...] 3:54 PM EST Colonoscopy, Flex, W/Control, Bleeding ([id number]) 03/04/2020 3:10 PM EST Diarrhea, unspecified type Colonoscopy, Remv Lesn, Snare ([id number]) 03/04/2020 3:10 PM EST Diarrhea, unspecified type Colonoscopy, Biopsy ([id number]) 03/04/2020 3:10 PM EST Diarrhea, unspecified type COLONOSCOPY Routine 03/04/2020 2:45 PM EST documented in this encounter Results * Surgical Pathology Report (03/04/2020 3:54 PM EST) Surgical Pathology Report [id number] ? Location: 4T; EA07; A The signing pathologist has (i) examined the relevant preparation(s) for the specimen(s) and (ii) rendered or confirmed the diagnosis(es). . ?Surgical Pathology DIAGNOSIS A - Random colon, ??biopsy: Colonic mucosa within normal limits. B - Descending colon, ?? polypectomy: Fragments of tubular adenoma(s). CR-PX Electronically signed by: ??Renu SINGH PhD, Elena Verified: ??03/08/2020 ?Pathologist Performed at: ??-[facility] Dept. of Pathology, [place], [place] SPECIMEN(S) SUBMITTED A - random colon [...] O RDERABLES [facility] [place] [place] [address] * Specimen to Pathology (03/04/2020 3:54 PM EST) AP Specimen 03/04/2020 3:54 PM EST 03/04/2020 3:54 PM EST Narrative [facility] - 03/04/2020 3:54 PM EST Specimen requisition ordered. ??Separate Pathology report to follow Tasneem Sosa MD PATHOLOGY/CYTOLOGY O JIMMIE Performing Organization Address [facility] [place] [address] * Specimen to Pathology (03/04/2020 3:54 PM EST) AP Specimen 03/04/2020 3:54 PM EST 03/04/2020 3:54 PM EST Narrative [facility] - 03/04/2020 3:54 PM EST Specimen requisition ordered. ??Separate Pathology report to follow Tasneem Sosa MD PATHOLOGY/CYTOLOGY O JIMMIE Performing Organization Address [facility] [place] [address] * COLONOSCOPY (03/04/2020 2:45 PM EST) COLONOSCOPY [facility] Endoscopy Procedure Date: 03/04/2020 2:45 PM ? Patient Name: Elaina Bangura ? Date of : 1970 ? Age: 49 ? Order #: [id number] ? Instrument Name: [id number] ? Procedure: ? Colonoscopy Indications: ? Chronic diarrhea Providers: ? Shannan Rodriguez, ? Cinthya Fragoso Referring MD: ?Duncan Paul MD Requesting Provider: Renetta Green Medicines: ? Fentanyl 200 micrograms IV, Midazolam ? 5 mg IV Complications: ? No immediate complications. Procedure: ? Pre-Anesthesia Assessment: ? - Vantage Protocol: ? - Pre-procedure Verification: Prior ? [...] the physician, the nurse ? and the industrial technician in the procedure ? room. ? [...] this encounter Visit Diagnoses Diagnosis Diarrhea- Primary documented in this encounter Admitting Diagnoses Diagnosis Diarrhea documented in this encounter Administered Medications Inactive Administered Medications - up to 3 most recent administrations Medication Order MAR Action Action Date Dose Rate Site lactated ringers infusion 100 mL/hr, Intravenous, CONTINUOUS, Starting on Wed03/04/20 at 1415, Until Wed03/04/20 at 1634, Endoscopy (Day of Procedure) New Bag 03/04/2020 2:20 PM EST 100 mL/hr 100 mL/hr documented in this encounter Active and Recently [...] Until Wed03/04/20 at 1838, Intra-Operative (Intra-Procedure), Routine 151 (Given - Provid er: Shannan Bauer RN)151 (Given - Provider: Shannan Bauer RN)1519 (Given - Provider: Shannan Bauer RN)1523 (Given - Provider: Shannan Bauer RN) documented in this encounter Care Teams Layout Technician Relationship Specialty Start Date End Date Duncan Paul MD [address] [address] PCP - General General Internal Medicine 10/03/15 documented as of this encounter
--- OUTSIDE RECORDS SUMMARY | 2023-09-10 14:48 | XMS_ITS | Encounter Summary ---
[place] [address] Care Team Providers Care Head Housekeeper Name Role Phone Duncan Paul MD Primary Care Provider Encounter Details Date Type Department Care Team (Late st Contact Info) Description 05/22/2016 Orders Only [place] [address] Sam Shine MD [facility] [place] [address] Acute biliary pancreatitis, unspecified complication status Social History Tobacco Use Types Packs/Day Years [...] as of this encounter Visit Diagnoses Diagnosis Acute biliary pancreatitis, unspecified complication status documented in this encounter Care Teams Head Housekeeper Relationship Specialty Start Date End Date Duncan Paul MD [address] [place] [address], [place] [id number] PCP - General General Internal Medicine 10/03/15 documented as of this encounter
--- OUTSIDE RECORDS SUMMARY | 2023-09-10 14:49 | XMS_ITS | Encounter Summary ---
[place] [address] Care Team Providers Care Superior Court Judge Name Role Phone Duncan Paul MD Primary Care Provider [phone] Encounter Details Date Type Department Care Team (Late st Contact Info) Description 05/29/2005 Orders Only Radiology and Cardiology Results [address] [place] [address] Apd Conversion, Results Provider, Social History Tobacco Use Types Packs/Day Years Used Date Smoking Tobacco: Never Assessed Sex and Gender Information Value Date Recorded Sex Assigned at Not on file Gender Identity Not on file Sexual Orientation Not on file documented as of this encounter Plan of Treatment Not on file documented as of this encounter Procedures Procedure Name Priority Date/Time Associated Diagnosis Comments TSH Routine 05/29/2005 12:00 AM EDT documented in this encounter Results * (ABNORMAL) TSH (05/29/2005 12:00 AM EDT) TSH 0.99(Exter nal Lab) 0.46 - 4.68 mIU/L MICHAEL ELIAS CONVERSION 05/29/2005 Results Provider Apd Conversion MD ANAI GARDNER ORDERABLES MICHAEL ELIAS CONVERSION documented in this encounter Visit Diagnoses Not on filedocumented in this encounter Care Teams Superior Court Judge Relationship Specialty Start Date End Date Duncan Paul MD [address] [place] [id number] PCP - General General Internal Medicine 10/03/15 documented as of this encounter
--- OUTSIDE RECORDS SUMMARY | 2023-09-10 14:49 | XMS_ITS | Encounter Summary ---
[place] [address] Care Team Providers Care Youth Care Worker Name Role Phone Jamaica Segal Primary Care Provider [phone] Reason for Visit * Reason Comments Extremity Pain right third digit Encounter Details Date Type Department Care Team (Late st Contact Info) Description 01/17/2013 9:00 AM EST Follow-Up [place] [address] Danial Lange MD [facility] [place] [address] PAD (peripheral artery disease) (Primary Dx) Discharge Disposition: Home Social History [...] as of this encounter Progress Notes * Danial Lange MD - 01/17/2013 9:45 AM EST Subjective: Patient ID: Elaina Bangura is a 42 y.o. female. HPI I am seeing this patient at the request of Ms. Segal. I have reviewed all pertinent data. Patient was awakened with arm numbness and finger pain out of a sound sleep approximately one month ago. Since then her arm has been fine but she reports continued pain in her three-five digit tips of the right hand with two weeks of discoloration and now associated dysesthesia of the third digit tip. She denies a personal or family history of bleeding or clotting. Review of Systems Constitutional: Negative. Eyes: Negative. Respiratory: Negative. Cardiovascular: Negative. Gastrointestinal: Negative. Musculoskeletal: Negative. Skin: Positive for color change. Neurological: Positive for headaches. Hematological: Negative. Psychiatric/Behavioral: Negative. Objective: Physical Exam Constitutional: She appears well-developed and well-nourished. HENT: Head: Normocephalic and atraumatic. Eyes: Conjunctivae normal are normal. Pupils are equal, round, and reactive to light. Neck: Normal range of motion. Neck supple. Cardiovascular: Normal rate, regular rhythm and intact distal pulses. Radial and ulnar pulses are normal. Pulmonary/Chest: Effort normal. Abdominal: Soft. Musculoskeletal: Normal range of motion. Neurological: She is alert. Skin: Third digit tip with purplish discoloration in spots. Psychiatric: She has a normal mood and affect. Assessment and Plan: All waveforms in the arm and digiti pressures are normal. Expect mircoembolization from some arterial lesion. Should be treated to prevent recurrence and promote arterial re-surfacing. Would add ASA and statin to regime along with pain med. RV PRN. documented in this encounter Plan of Treatment Not on file documented as of this encounter Visit Diagnoses Diagnosis PAD (peripheral artery disease)- Primary Peripheral vascular disease, unspecified documented in this encounter Care Teams Youth Care Worker Relationship Specialty Start Date End Date Jamaica Segal PA [facility] [place] [address] PCP - General 01/13/13 04/02/13 documented as of this encounter
--- OUTSIDE RECORDS SUMMARY | 2023-09-10 14:49 | XMS_ITS | Encounter Summary ---
Author Organization [facility] Address [facility] [place] [address] Care Team Providers Care Foot Doctor Name Role Phone Jamaica Segal Primary Care Provider [phone] Reason for Visit * Reason Comments Raynaud's Syndrome diagnosed right hand raynauds from ER, seen and made apt. for here, started halloween, very painful Encounter Details Date Type Department Care Team (Late st Contact Info) Description 01/16/2013 8:00 AM EST Office Visit Internal Medicine at [address] [id number] Jamaica Segal PA [facility] [place] [address] Tylenol ingestion; Raynaud phenomenon; Cyanotic fingertip Discharge Disposition: Home Social History Tobacco Use [...] Sign Reading Time Taken Comments Blood Pressure 139/87 01/16/2013 8:09 AM EST Pulse 65 01/16/2013 8:09 AM EST Temperature 37.3 ??C (99.1 ??F) 01/16/2013 8:09 AM ES T Respiratory Rate - - Oxygen Saturation 99% 01/16/2013 8:09 AM EST Inhaled Oxygen Concentration - - Weight 85 kg (187 lb 8 oz) 01/16/2013 8:09 AM ES T Height 166.4 cm (5' 5.5) 01/16/2013 8:09 AM EST Body Mass Index 30.73 01/16/2013 8:09 AM EST documented in this encounter Progress Notes * Jamaica Segal PA - 01/16/2013 8:21 AM EST Anamika Bangura is a 42 y.o. year old female who is here for an annual exam to address acute and chronic medical issues. Current Issues and Goals for Health Care: Starting on , had a GI bug or migraine (vomiting and diarrhea), woke in middle of night could not feel right arm, painful and decreased strength (preserved ROM). Lasted a couple of days, very painful for a few days, then got better except for from wrist down, painful, numb. Not sleeping due to pain, never gives her a break. Throbbing. 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 Minute she goes into the cold, it is excruciating. No amount of gloves or hand warmers helps. Has been taking 2-3 Tylenol every few hours for the past few weeks. Went to ED on 01/12 due to severe pain. Was diagnosed with Raynaud's and was given a rx for Nifedipine and told not to take it until following up with PCP. Has no insurance and has not had PCP for a long time. Smoker, worst day is half a pack/day. Trying to quit with . Can go five days without smoking. Review of Systems: Constitutional - No fevers, chills, unintentional weight change, fatigue, night sweats ENT - No difficulty swallowing. Hearing normal. No nasal congestion or postnasal drip Skin - No rash, lesions or pruritis Eyes - No visual changes, blurriness or visual loss Respiratory - No SOB, MORENO, wheeze, cough, sputum production Cardiovascular - No CP, palpitations, angina, PND. Gastrointestinal - No abdominal pain, nausea, GERD, constipation, diarrhea, blood in stool Genitourinary - No abnormal discharge, masses or nodules. No dysuria, urinary urgency or frequency,stress or urge incontinence. Musculoskeletal - See HPI. Endocrine - No polydipsia, polyuria, palpitations. Psychiatric - No sadness, depression, anxiety, anhedonia, suicidal ideation. Neurological - No headaches. No numbness, tingling, loss of sensation, weakness or function of limbs. Heme/Lymph - No bleeding, lymph node swelling, night sweats All other systems negative No outpatient prescriptions have been marked as taking for the 01/16/13 encounter (Office Visit) with Jamaica Segal PA. No Known Allergies Past Medical History Diagnosis Date ??? Depression Hospitalized in 2008, has had lifelong ??? Migraine not formally diagnosed ??? Peripheral vascular disease Past Surgical History Procedure Date ??? Hysterectomy 2006 ??? Tubal ligation 2002 Family History Problem Relation Age of Onset ??? Hypertension Mother ??? Gout Father History Social History ??? Marital Status: Spouse Name: N/A Number of Children: 2 ??? 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 Smoking status: Current Every Day Smoker -- 0.5 packs/day for 25 years ??? Smokeless tobacco: Never Used ??? Alcohol Use: Yes rarely ??? Drug Use: No ??? Sexually Active: Yes -- Male partner(s) Control/ Protection: Surgical Other Topics Concern ??? Not on file Social History Narrative Lives with and two children. 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 PHYSICAL EXAM: BP 139/87 Pulse 65 Temp 37.3 ??C (99.1 ??F) Ht 166.4 cm (5' 5.5) Wt 85.049 kg (187 lb 8 oz) BMI 30.73 kg/m2 SpO2 99% General: WN, WD female in NAD; AAOx3 Bilateral upper extremities - Radial and ulnar pulses are strong and symmetric bilaterally. Right 3rd digit with blue-purple discoloration on fingertip, palmar surface, COLD to touch. +tiny spots of purple on right 2nd fingertip. +2nd, 3rd, and 4th right fingertips tender to palpation Unable to assess capillary refill due to pain. Palmar surfaces pink. Other fingers with cap refill < 2 sec, warm, normal color. Remainder of upper extremities warm, normal color, normal ROM. Bilateral hands with normal ROM and strength as well. Assessment and Plan: Anamika was seen today for raynaud's syndrome. Diagnoses and associated orders for this visit: Tylenol ingestion - Hepatic Function Panel; Future - Hepatic Function Panel Raynaud phenomenon - FILEMON; Future - Extractable Nuclear Antigen (MARCO A) Ab; Future - FILEMON - Extractable Nuclear Antigen (MARCO A) Ab Cyanotic fingertip - Cancel: Duplex for DVT, Arm, Unilat; Future - UL Seg Pressure, multi levels; Future documented in this encounter Miscellaneous Notes * Miscellaneous - Provider, Scanning - 01/24/2013 11:50 AM EST documented in this encounter Plan of Treatment Not on file documented as of this encounter Procedures Procedure Name Priority Date/Time Associated Diagnosis Comments EXTRACTABLE NUCLEAR ANTIGEN (MARCO A) AB Routine 01/16/2013 9:29 AM EST Raynaud phenomenon FILEMON ANTIBODY SCREEN Routine 01/16/2013 9 :29 AM EST Raynaud phenomenon HEPATIC FUNCTION PANEL Routine 01/16/2013 9:29 AM EST Tylenol ingestion documented in this encounter Results * UL Seg Pressure, multi levels (01/17/2013 8:39 AM EST) VB Text Report Department: Vascular Surgery Lab Patient: [id number] (ANAMIKA BANGURA) CPT Code: 52623 ICD-9: 444.21 Referring Physician: RISSA SULLIVAN Indication: ??Cyanotic and painful 2nd, 3rd, and 4th digits ICD9 Diagnosis Code: 444.21 DBI = Digital / Brachial Systolic Pressure Index ? WBI = Wrist / Brachial Systolic Pressure Index Rt BP: 134/ Lt BP: 133/ Findings: Right ?(mmHg) ?? WBI ?? DBI ?? Brachial Artery ??134 ? Radial Artery ?144 ? 1.07 ? Ulnar Artery ? 146 ? 1.09 ? Thumb ?125 ? 0.93 ?? Digit 2 ?149 ? 1.11 ?? Digit 3 ?127 ? 0.95 ?? Digit 4 ?132 ? 0.99 ?? Digit 5 ?139 ? 1.04 ?? Left ? (mmHg) ?? Brachial Artery ??133 ? Interpretation: RIGHT: No significant upper extremity arterial occlusive disease identified at rest to the level of our finger cuffs. However, cyanotic digits suggestive of small vessel embolism. Limited duplex of the subclavian and axillary arteries; no identifiable aneurysm or thrombus/plaque. Comment: Dr. Lange reviewed preliminary results and performed a consultation on the patient. Electronically Signed by: MAURICIO CUELLAR on 2013-01-19 03:10:36 PM VASCUBASE VB Text Report End of Report VASCUBASE 01/17/2013 8:39 AM EST Rissa Sullivan MD VASCULAR ORDERABL ES VASCUBASE * Extractable Nuclear Antigen (MARCO A) Ab (01/16/2013 9:29 AM EST) MARCO A Ab Test ?Result ?Flag ??Unit ??RefValue Ab to Extractable Nuclear Ag Eval,S ??SS-A/Ro Ab, IgG, S ?<0.2 ?U -- REFERENCE VALUE -- <1.0 (Negative) ??SS-B/La Ab, IgG, S ?<0.2 ?U -- REFERENCE VALUE -- <1.0 (Negative) ??Sm Ab, IgG, S ? <0.2 ?U -- REFERENCE VALUE -- <1.0 (Negative) ??TUG CAPTAIN Ab, IgG, S ?<0.2 ?U -- REFERENCE VALUE -- <1.0 (Negative) ??Scl 70 Ab, IgG, S ? <0.2 ?U -- REFERENCE VALUE -- <1.0 (Negative) ??Marlen 1 Ab, IgG, S ? <0.2 ?U -- REFERENCE VALUE -- <1.0 (Negative) Test Performed by: [place] [address] Block Bolter Mule Operator: Jeannie Russell, Ph.D. KELSEY BARR Blood specimen (specimen) 01/16/2013 9:29 AM EST 01/16/2013 1:45 PM EST Narrative Resulting Agency Comment Spec In Lab Rissa Sullivan MD IMMUNOLOGY IQRA DE [place] ROSA KELSEY BARR * FILEMON (01/16/2013 9:29 AM EST) FILEMON Neg Neg CERNER MILLENNIUM Blood specimen (specimen) 01/16/2013 9:29 AM EST 01/16/2013 2:05 PM EST Narrative Resulting Agency Comment Spec In Lab Rissa Sullivan MD IMMUNOLOGY ORDERA BLES Performing Organization Address [facility] Co de Phone Number CERNER MILLENNIUM * (ABNORMAL) Hepatic Function Panel (01/16/2013 9:29 AM EST) Total Protein 7.1 6.4 - 8.3 gm/dL CERNER MILLENNIUM Albumin 4.4 3.2 - 5.2 gm/dL CERNER MILLENNIUM AST 26 0 - 30 unit/L CERNER MILLENNIUM ALT 31(H) 0 - 30 unit/L CERNER MILLENNIUM Alk Phos 73 40 - 104 unit/L CERNER MILLENNIUM Total Bilirubin 0.3 0.2 - 1.3 mg/dL CERNER MILLENNIUM Bili, Direct 0.1 0.0 - 0.3 mg/dL CERNER MILLENNIUM Blood specimen (specimen) 01/16/2013 9:29 AM EST 01/16/2013 12:49 PM EST Narrative Resulting Agency Comment Spec In Lab Rissa Sullivan MD CHEMISTRY ORDERAB LES Performing Organization Address [facility] Co de Phone Number CERNER MILLENNIUM documented in this encounter Visit Diagnoses Diagnosis Tylenol ingestion Poisoning by aromatic analgesics, not elsewhere classified Raynaud phenomenon Raynaud's syndrome Cyanotic fingertip Cyanosis documented in this encounter Care Teams Foot Doctor Relationship Specialty Start Date End Date Jamaica Segal PA [facility] [place] [address] PCP - General 01/13/13 04/02/13 documented as of this encounter
--- OUTSIDE RECORDS SUMMARY | 2023-09-10 14:49 | XMS_ITS | Encounter Summary ---
Author Organization [facility] [place] [address] Care Team Providers Care Software Release Manager Name Role Phone Rissa Washburn MD Primary Care Provider [phone] Encounter Details Date Type Department Care Team (Late st Contact Info) Description 04/06/2012 Orders Only Internal Medicine at [address] [address] Afshin Davis MD [facility] [place] [address] Social History Tobacco Use Types Packs/Day Years Used Date Smoking Tobacco: Every Day Alcohol Use Standard Drinks/Week Comments Not Asked 0 (1 standard drink = 0.6 oz pur e alcohol) Sex and Gender Information Value Date Recorded Sex Assigned at Not on file Gender Identity Not on file Sexual Orientation Not on file documented as of this encounter Plan of Treatment Not on file documented as of this encounter Visit Diagnoses Not on filedocumented in this encounter Care Teams Software Release Manager Relationship Specialty Start Date End Date Rissa Washburn MD [facility] [place] [address] PCP - General 03/29/12 01/12/13 documented as of this encounter
--- OUTSIDE RECORDS SUMMARY | 2023-09-10 14:49 | XMS_ITS | Encounter Summary ---
Author [place] [address] Care Team Providers Care Bumper Operator Name Role Phone Jamaica Segal Primary Care Provider [phone] Encounter Details Date Type Department Care Team (Latest Contact Info) Description 01/17/2013 8:30 AM EST Ancillary Appointment [place] [address] Abundio Hernandez, RVT Cyanotic fingertip Social History Tobacco Use Types Packs/Day Years [...] Procedure Name Priority Date/Time Associated Diagnosis Comments BRACHIAL FINGER PRESSURES Routine 01/17/2013 8:39 AM EST Cyanotic fingertip documented in this encounter Results * UL Seg Pressure, multi levels (01/17/2013 8:39 AM EST) VB Text Report Department: Vascular Surgery Lab Patient: [id number] (ELAINA BANGURA) CPT Code: 61317 ICD-9: 444.21 Referring Physician: RISSA SULLIVAN Indication: [...] Rissa Sullivan MD VASCULAR ORDERABL ES VASCUBASE documented in this encounter Visit Diagnoses Diagnosis Cyanotic fingertip Cyanosis documented in this encounter Care Teams Bumper Operator Relationship Specialty Start Date End Date Jamaica Segal PA [facility] [place] [address] PCP - General 01/13/13 04/02/13 documented as of this encounter
--- OUTSIDE RECORDS SUMMARY | 2023-09-10 14:49 | XMS_ITS | Encounter Summary ---
Author Organization [facility] [place] [address] Care Team Providers Care Environmental Protection Economist Name Role Phone Iraida Allison APRN Primary Care Provider Encounter Details Date Type Department Care Team (Late st Contact Info) Description 04/24/2010 10:50 AM EST - 04/24/2010 11:53 AM EST Emergency [place] [address] Samson Barragan MD [facility] [address] [place] [address] Discharge Disposition: Home Social History Tobacco Use Types Packs/Day Years Used Date Smoking Tobacco: Never Assessed Sex and Gender Information Value Date Recorded Sex Assigned at Not on file Gender Identity Not on file Sexual Orientation Not on file documented as of this encounter Medications at Time of Discharge Medication Sig Dispensed Refills Start Date End Date OXYcodone-acetaminophen (PERCOCET) 5-325 mg per tablet 1-2 Tablet(s), PO, Four times daily 04/24/2010 04/06/2012 documented as of this encounter Plan of Treatment Not on file documented as of this encounter Visit Diagnoses Not on filedocumented in this encounter Care Teams Environmental Protection Economist Relationship Specialty Start Date End Date Iraida Allison APRN PCP - General 02/20/10 03/28/12 documented as of this encounter
--- OUTSIDE RECORDS SUMMARY | 2023-09-10 14:49 | XMS_ITS | Encounter Summary ---
[place] [address] Care Team Providers Care Heavy Repairer Name Role Phone Iraida Allison APRN Primary Care Provider [phone] Encounter Details Date Type Department Care Team (Late st Contact Info) Description 02/20/2010 9:25 AM EST - 02/20/2010 11:59 PM [facility] Hospital Encounter [facility] Facundo Rubalcava MD [address] [place] [address] Discharge Disposition: Home Social History Tobacco Use [...] on filedocumented in this encounter Care Teams Heavy Repairer Relationship Specialty Start Date End Date Iraida Allison APRN PCP - General 02/20/10 03/28/12 documented as of this encounter
--- OUTSIDE RECORDS SUMMARY | 2023-09-10 14:49 | XMS_ITS | Encounter Summary ---
[place] [address] Care Team Providers Care Rn Orthopedic Name Role Phone Rissa Washburn MD Primary Care Provider [phone] Reason for Referral * Consultation (Urgent) - Closed Specialty Diagnoses / Procedures Referred By Contac t Referred To Contact Internal Medicine Diagnoses Raynaud's disease Cervical radiculopathy Moreno Barron MD [facility] [place] [address] [address] Referral ID Status Reason Start Date Expiration Date V isits Requested Visits Authorized [id number] Closed Consult, Test & Treat 01/12/2013 07/11/2013 1 1 Reason for Visit * Reason Comments Numbness Encounter Details Date Type Department Care Team (Late st Contact Info) Description 01/12/2013 8:51 AM EST - 01/12/2013 11:57 AM EST [place] [id number] Moreno Barron MD [facility] [place] [address] Raynaud's disease; Cervical radiculopathy Discharge Disposition: Home Social History Tobacco Use [...] Sign Reading Time Taken Comments Blood Pressure 127/89 01/12/2013 11:50 AM EST Pulse 72 01/12/2013 11:50 AM EST Temperature 36.7 ??C (98.1 ??F) 01/12/2013 9:10 AM ES T Respiratory Rate 18 01/12/2013 11:50 AM EST Oxygen Saturation 98% 01/12/2013 11:50 AM EST Inhaled Oxygen Concentration - - Weight 86.2 kg (190 lb) 01/12/2013 9:10 AM EST Height - - Body Mass Index - - documented in this encounter Discharge Instructions * Attachments The following attachments cannot be sent through Care Everywhere. * RAYNAUD'S: AFTER YOUR VISIT ([place]) documented in this encounter Medications at Time of Discharge Medication Sig Dispensed Refills Start Date End Date NIFEdipine (ADALAT CC) 30 mg 24 hr tablet Take 1 tablet by mouth daily. 30 tablet 1 01/12/2013 10/24/2015 documented as of this encounter ED Notes * Moreno Barron MD - 01/12/2013 11:52 AM EST Chief Complaint Patient presents with ??? Numbness HPI pain and discoloration in the fingers of one hand. Patient awoke from sleep a few weeks ago with pain radiating down her right upper extremity. She describes this as numbness. Those symptoms have subsided but she has been left with pain and discoloration in the 3 fingers of her hand. Made worse by exposure to cold No Known Allergies Smoker Patient Active Problem List Diagnosis Code ??? Depression 311 History Social History ??? Marital Status: Spouse Name: N/A Number of Children: N/A ??? Years of Education: N/A Occupational History ??? Not on file. Social History Main Topics ??? Smoking status: Current Every Day Smoker ??? Smokeless tobacco: Not on file ??? Alcohol Use: Not on file ??? Drug Use: Not on file ??? Sexually Active: Not on file Other Topics Concern ??? Not on file Social History Narrative ??? No narrative on file Review of Systems Constitutional: Negative. Negative for fever and chills. HENT: Negative. Negative for sore throat, neck pain and neck stiffness. Eyes: Negative. Negative for visual disturbance. Respiratory: Negative. Negative for cough, chest tightness, shortness of breath and wheezing. Cardiovascular: Negative. Negative for chest pain, palpitations and leg swelling. Gastrointestinal: Negative. Negative for vomiting, abdominal pain, diarrhea and blood in stool. Genitourinary: Negative. Negative for dysuria and hematuria. Musculoskeletal: Negative. Negative for back pain. Skin: Positive for color change. Negative for rash. Neurological: Negative. Negative for dizziness, tremors, seizures, syncope, facial asymmetry, speech difficulty, weakness, light-headedness, numbness and headaches. Hematological: Negative. Negative for adenopathy. Psychiatric/Behavioral: Negative. Physical Exam Nursing note and vitals reviewed. Constitutional: She is oriented to person, place, and time. She appears well- developed and well-nourished. No distress. Well-developed, well-nourished, in no acute distress. Normal color normal hydration and normal vitals HENT: Head: Normocephalic and atraumatic. Eyes: Conjunctivae normal and EOM are normal. Pupils are equal, round, and reactive to light. No scleral icterus. Neck: Normal range of motion. Neck supple. No JVD present. No tracheal deviation present. Cardiovascular: Normal rate, regular rhythm and normal heart sounds. No murmur heard. Pulmonary/Chest: Effort normal and breath sounds normal. No stridor. No respiratory distress. She has no wheezes. She has no rales. She exhibits no tenderness. Abdominal: Soft. Bowel sounds are normal. She exhibits no distension and no mass. There is no tenderness. There is no rebound and no guarding. Musculoskeletal: Normal range of motion. She exhibits no edema and no tenderness. Lymphadenopathy: She has no cervical adenopathy. Neurological: She is alert and oriented to person, place, and time. No cranial nerve deficit. Coordination normal. Skin: Skin is warm and dry. No rash noted. 3 fingertips of her right hand have a blanchable of purplish coloration. Psychiatric: She has a normal mood and affect. Procedures No results found for this or any previous visit (from the past 24 hour(s)). MDM Somewhat atypical presentation for Raynaud's. Initiated in the upper extremity with a cervical radiculopathy which has now resolved. On further inquiry she has had the symptoms in the other distal extremities in the past. Cervical radiculopathy; resolve Hypertension: nonemergent followup PCP Smoking ED Course: Discharged in good condition. Moreno Barron MD 01/12/131947 Devi Preston RN - 01/12/2013 11:49 AM EST No change in pt assessment. Pt evaluated by MD and updated with POC. Plan to d/c home. Devi Preston RN - 01/12/2013 11:02 AM EST Awaiting MD evaluation. Devi Preston RN - 01/12/2013 9:43 AM EST Awaiting MD evaluation. Devi Preston RN - 01/12/2013 9:14 AM EST Presents to ED via triage, AAOx3 with c/o decreased sensation and severe pain to 2nd, 3rd, and 4th digits on right hand which began on 12/22/2012 and have progressively worsened. Pt reports she had aviral illness on 12/22/2012 and woke up in the night and realized that her RUE had decreased sensation which she attributed to sleeping on it wrong or a pinched nerve. She was also experiencing numbness/tingling in her 2nd-4th digits on her right hand. The decrease in sensation subsided that night, however, the numbness/tingling in her 2nd-4th digits have worsened and pt now states that they are extremely painful. Hot and cold temperatures worsen the pain. 2nd-4th digits are discolored (purp manisha). Capillary refill time < 2 sec. In all digits. Fingers are cold to the touch; greater on the right hand than the left. Bilateral quill cleaning machine operator are strong, but pt is unable to fully cattyman on right side past the distal joint. Denies recent fever or illness. MD to evaluate. documented in this encounter Miscellaneous Notes * Discharge Summary - Provider, Scanning - 01/13/2013 11:05 AM EST * Miscellaneous - Provider, Scanning - 01/12/2013 9:54 PM EST * Med Student Progress Note - Martha Adams - 01/12/2013 10:30 AM EST Patient Name: Elaina Bangura Patient Age: 42 y.o. Birthdate: 1970 Admit date: 01/12/2013 Attending Physician: No att. providers found History of Present Illness Patient Identification Elaina Bangura is a 42 y.o. female who presents to the ED with a three week history of numbness of the right 2nd, 3rd, and 4th metacarpals. Patient information was obtained from patient. History/Exam limitations: none. Patient presented to the Emergency Department by private vehicle. Chief Complaint Numbness and tingling in her right 2nd, 3rd, and 4th metacarpals located to the distal phalanges. Patient presents for evaluation of her right hand for numbness and pins and needles sensation in her 2nd, 3rd, and 4th metacarpals in the distal phalanges. She states that she felt sick on December 22 and was in bed for most of the night. She woke up in the middle of the night because of pain and numbness in her entire right extremity. She reports it was from her shoulder to her fingertips. This continued for a couple of days with eventual resolution except for the fingertips of her 2nd, 3rd, and 4th fingers. She reports that this has continued to be constant since the initial onset. 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 She reports that extremes of temperature intensify the pain and that there has been nothing that has given her any relief. This has never happened to her before. She reports paresthesias in the fingertips, decreased temperature in the fingertips, and a purplish discoloration. She has not been seen prior to today. She has no known medical problems. She is an everyday smoker that smokes between a 1/2 pack and a pack a day. She is right handed. Past Medical History Diagnosis Date ??? Depression 04/06/2012 No family history on file. No current facility-administered medications for this encounter. Current Outpatient Prescriptions Medication Sig Dispense Refill ??? [DISCONTINUED] SERTRALINE HCL (ZOLOFT ORAL) No Known Allergies History Social History ??? Marital Status: Spouse Name: N/A Number of Children: N/A ??? Years of Education: N/A Occupational History ??? Not on file. Social History Main Topics ??? Smoking status: Current Every Day Smoker ??? Smokeless tobacco: Not on file ??? Alcohol Use: Not on file ??? Drug Use: Not on file ??? Sexually Active: Not on file Other Topics Concern ??? Not on file Social History Narrative ??? No narrative on file Review of Systems Constitutional: negative for chills, fatigue, fevers and weight loss Ears, nose, mouth, throat, and face: negative for earaches, nasal congestion and sore throat Respiratory: negative for cough, dyspnea on exertion and wheezing Cardiovascular: negative for chest pain, dyspnea and palpitations Gastrointestinal: negative for abdominal pain, diarrhea and vomiting Genitourinary:negative for dysuria and hematuria Musculoskeletal:positive for right finger pain in the 2nd, 3rd, and 4th metacarpals in the distal phalanges, negative for neck pain Neurological: positive for paresthesia and pins and needle sensation in the right 2nd, 3rd, and 4th metacarpals., negative for dizziness, headaches, vertigo and weakness Behavioral/Psych: negative for anxiety Physical Exam BP 154/96 Pulse 67 Temp 36.7 ??C (98.1 ??F) (Oral) Resp 18 Wt 86.183 kg (190 lb) SpO2 98% General appearance: alert, appears stated age, cooperative and no distress Head: Normocephalic, without obvious abnormality, atraumatic Eyes: conjunctivae/corneas clear. PERRL, EOM's intact. Fundi benign. Nose: Nares normal. Septum midline. Mucosa normal. No drainage or sinus tenderness. Throat: normal findings: buccal mucosa normal and soft palate, uvula, and tonsils normal Lungs: clear to auscultation bilaterally Heart: regular rate and rhythm, S1, S2 normal, no murmur, click, rub or gallop Abdomen: soft, non-tender; bowel sounds normal; no masses, no organomegaly Extremities: left UE and bilateral lower extremities are normal, atraumatic, no cyanosis or edema. No discoloration and normal temperature in the lower extremities and the left UE. In the right UE, the 2nd, 3rd, and 4th distal phalanges are discolored and cold to palpation. There is markable decreased sensation in the same distribution. There is also pain with passive movements of these fingers. The right arm and wrist have normal color, normal sensation, and normal strength. Pulses: radial and DP pulses 2+ and symmetric Neurologic: Alert and oriented X 3, normal strength and tone in bilateral LE and left UE. Motor is decreased in the right UE 2nd, 3rd, and 4th metacarpals. She is a 1/5, more limited by pain rather than ability. ED Course Studies: No lab work done Records Reviewed: Records reviewed Treatments: Given a referral to a PCP. Counseled on techniques to decrease pain associated with Raynaud's. Prescribed a CCB. Assessment and Plan: Cervical radiculopathy there precipitated an episode of Raynaud's. ED Course: 41 year old female patient with a history of smoking that presented with a 3 week history of numbness, tingling, and pain in her 2nd, 3rd, and 4th distal phalanges. The patient was seen and examined. We referred her to follow- up with a PCP and prescribed a CCB. She was counseled to quit smoking. She was also counseled on the effects of Raynauds and ways to decrease the intensity of theattacks. She agrees with the plan. Final Diagnosis: Cervical radiculopathy that caused a Raynaud's attack. Disposition: Home. Referral PCP. * ED Triage - Devi Edwards RN - 01/12/2013 9:11 AM EST Presents to ED via triage, AAOx3 with c/o decreased sensation and severe pain to 2nd, 3rd, and 4th digits on right hand which began on 12/22/2012 and have progressively worsened. documented in this encounter Plan of Treatment Scheduled Referrals Name Type Priority Associated Diagnoses Orde r Schedule Referral to General Internal Medicine Outpatient Referral Routine Raynaud's disease Cervical radiculopathy Ordered: 01/12/2013 documented as of this encounter Visit Diagnoses Diagnosis Raynaud's disease Raynaud's syndrome Cervical radiculopathy Brachial neuritis or radiculitis nos documented in this encounter Care Teams Rn Orthopedic Relationship Specialty Start Date End Date Rissa Washburn MD [facility] [address] [address] PCP - General 03/29/12 01/12/13 documented as of this encounter
--- OUTSIDE RECORDS SUMMARY | 2023-09-10 14:49 | XMS_ITS | Encounter Summary ---
[place] [address] Care Team Providers Care Tanbark Peeler Name Role Phone Duncan Paul MD Primary Care Provider [phone] Encounter Details Date Type Department Care Team (Late st Contact Info) Description 05/11/2005 Orders Only Radiology and Cardiology Results [address] [place] [address] Apd Conversion, Results Provider, Social [...] Procedure Name Priority Date/Time Associated Diagnosis Comments CYTOPATHOLOGY GYNECOLOGICAL Routine 05/11/2005 documented in this encounter Results * (ABNORMAL) Cytopathology Gynecological (05/11/2005) Candy Wrapping Machine Operator Cytology Final Report Please see Rachel Elias legacy report(Exte rnal Lab) RACHEL ELIAS CONVERSION 05/11/2005 Narrative RACHEL ELIAS CONVERSION - 05/12/2005 Please see Rachel Elias Legacy report Results Provider Apd Conversion PATHO LOGY/CYTOLOGY ORDERABLES RACHEL THURSTON CONVERSION documented in this encounter Visit Diagnoses Not on filedocumented in this encounter Care Teams Tanbark Peeler Relationship Specialty Start Date End Date Duncan Paul MD [address] [place] [id number] PCP - General General Internal Medicine 10/03/15 documented as of this encounter
[2023-09-10 20:19] LABS: ALT 39 U/L (14-59); AST 28 U/L (15-37); Albumin 3.9 g/dL (3.4-5.0); Alkaline Phosphatase 125 U/L (46-116); Anion Gap 7.8 mmol/L (3-11); BUN 10 mg/dL (7-18); CO2 29.2 mmol/L (21.0-32.0); CREATININE 1.1 mg/dL (0.55-1.02); Calcium 9.4 mg/dL (8.5-10.1); Chloride 102 mmol/L (98-107); Estimated GFR 60.84 (mL/min/1.73m2); Glucose 86 mg/dL (74-106); Magnesium 1.5 mg/dL (1.8-2.4); Potassium 4.6 mmol/L (3.5-5.1); Sodium 139 mmol/L (136-145); Total Protein 7.4 g/dL (6.4-8.2)
== END 2023-09-10 14:46 | disposition home or self-care (01) ==
LOC: NCHCN 14:45
PROVIDERS: PCP Internal Medicine; Visit Provider Physician Assistant
DX: E83.42 Hypomagnesemia (principal); R79.89 Other specified abnormal findings of blood chemistry
CPT/HCPCS: 80053; 83735

== ENCOUNTER 2023-11-12 14:55 | Outpatient (REF) | payer MEDICARE, SELFPAY ==
[2023-11-12 19:21] LABS: Magnesium 1.8 mg/dL (1.8-2.4)
== END 2023-11-12 14:56 | disposition home or self-care (01) ==
LOC: NCHCN 14:55
PROVIDERS: PCP Internal Medicine; Visit Provider Physician Assistant
DX: E83.42 Hypomagnesemia (principal); R79.89 Other specified abnormal findings of blood chemistry
CPT/HCPCS: 83735

== ENCOUNTER 2024-05-09 13:34 | Outpatient (REF) | payer MEDICARE, SELFPAY ==
[2024-05-09 20:26] LABS: Abs Immature Grans 0.02 10^3/uL (0.0-0.06); Absolute Basophil Count 0.04 10^3/uL (0.0-0.2); Absolute Eosinophil Count 0.12 10^3/uL (0.0-0.7); Absolute Lymphocyte Count 1.87 10^3/uL (1.2-3.4); Absolute Monocyte Count 0.47 10^3/uL (0.1-0.8); Absolute Neutrophil Count 3.46 10^3/uL (1.2-6.7); Basophils % 0.7 %; HGB 13.4 g/dL (11.2-15.7); Immature Grans % 0.3 %; Lymphocytes % 31.3 %; MCH 32.5 pg (27.0-33.0); MCHC 34.4 % (32.0-36.0); MCV 95 fL (80-95); MPV 10.5 fL (8.0-11.0); Monocytes % 7.9 %; Neutrophils % 57.8 %; Platelet Count 292 10^3/uL (130-400); RBC 4.12 10^6/uL (3.93-5.22); RDW-SD 41.9 fL; WBC 5.98 10^3/uL (4.4-10.8)
[2024-05-09 20:58] LABS: ALT 81 U/L (14-59); AST 61 U/L (15-37); Alkaline Phosphatase 158 U/L (46-116); Anion Gap 8.2 mmol/L (3-11); BUN 7 mg/dL (7-18); Bilirubin, Total 0.7 mg/dL (0.2-1.0); CO2 28.8 mmol/L (21.0-32.0); CREATININE 0.9 mg/dL (0.55-1.02); Calcium 9.3 mg/dL (8.5-10.1); Chloride 102 mmol/L (98-107); Estimated GFR 76.92 (mL/min/1.73m2); Glucose 85 mg/dL (74-106); Magnesium 1.5 mg/dL (1.8-2.4); Potassium 4.1 mmol/L (3.5-5.1); Sodium 139 mmol/L (136-145); TSH (W/Ref FT4) 1.91 uIU/mL (0.36-3.74); Total Protein 7.2 g/dL (6.4-8.2)
== END 2024-05-09 13:35 | disposition home or self-care (01) ==
LOC: NCHCN 13:34
PROVIDERS: PCP Internal Medicine; Visit Provider Physician Assistant
DX: R00.2 Palpitations (principal)
CPT/HCPCS: 80053; 83735; 84443; 85025

== ENCOUNTER 2024-06-15 16:10 | Outpatient (REF) | payer MEDICARE, SELFPAY ==
[2024-06-15 19:32] LABS: Magnesium 1.6 mg/dL (1.8-2.4)
[2024-06-16 19:04] LABS: Hepatitis C Ab w Rflx HCV PCR Negative (Negative)
[2024-06-16 19:10] LABS: HIV-1/2 Ag & Ab Screen Negative (Negative)
== END 2024-06-15 16:11 | disposition home or self-care (01) ==
LOC: NCHCN 16:10
PROVIDERS: PCP Internal Medicine; Visit Provider Physician Assistant
DX: E83.42 Hypomagnesemia (principal); Z11.4 Encounter for screening for human immunodeficiency virus [HIV]; Z11.59 Encounter for screening for other viral diseases
CPT/HCPCS: 86803; 87389; 83735

== ENCOUNTER 2024-10-25 15:16 | Outpatient (REF) | payer MEDICARE, SELFPAY ==
[2024-10-25 20:11] LABS: Abs Immature Grans 0.02 10^3/uL (0.0-0.06); HCT 34.9 % (36.0-46.0); HGB 12.2 g/dL (11.2-15.7); Immature Grans % 0.4 %; MCH 32.4 pg (27.0-33.0); MCHC 35.0 % (32.0-36.0); MCV 93 fL (80-95); MPV 10.5 fL (8.0-11.0); Platelet Count 325 10^3/uL (130-400); RBC 3.76 10^6/uL (3.93-5.22); RDW 12.4 % (11.7-14.6); RDW-SD 42.5 fL; WBC 5.19 10^3/uL (4.4-10.8)
[2024-10-25 20:27] LABS: ALT 172 U/L (14-59); AST 267 U/L (15-37); Albumin 3.9 g/dL (3.4-5.0); Alkaline Phosphatase 178 U/L (46-116); Anion Gap 8.7 mmol/L (3-11); BUN 3 mg/dL (7-18); Bilirubin, Total 0.7 mg/dL (0.2-1.0); CO2 28.3 mmol/L (21.0-32.0); Calcium 9.2 mg/dL (8.5-10.1); Chloride 102 mmol/L (98-107); Estimated GFR 67.78 (mL/min/1.73m2); Glucose 104 mg/dL (74-106); Potassium 4.0 mmol/L (3.5-5.1); Sodium 139 mmol/L (136-145); Total Protein 7.2 g/dL (6.4-8.2)
[2024-10-26 10:08] LABS: Magnesium 1.9 mg/dL (1.8-2.4)
== END 2024-10-25 15:17 | disposition home or self-care (01) ==
LOC: NCHCN 15:16
PROVIDERS: PCP Internal Medicine; Visit Provider Physician Assistant
DX: R79.89 Other specified abnormal findings of blood chemistry (principal); E83.42 Hypomagnesemia
CPT/HCPCS: 80053; 83735; 85025

== ENCOUNTER 2024-11-28 17:31 | Outpatient (REF) | payer MEDICARE, SELFPAY ==
[2024-11-28 20:30] LABS: Iron 70 ug/dL (50-170); Total Iron Binding Capacity 340 ug/dL (250-450); Transferrin Sat 21 % (15-50)
[2024-11-28 20:37] LABS: ALT 33 U/L (14-59); AST 24 U/L (15-37); Albumin 4.2 g/dL (3.4-5.0); Alkaline Phosphatase 89 U/L (46-116); Anion Gap 11.9 mmol/L (3-11); BUN 15 mg/dL (7-18); Bilirubin, Total 0.4 mg/dL (0.2-1.0); CO2 26.1 mmol/L (21.0-32.0); Calcium 9.5 mg/dL (8.5-10.1); Chloride 103 mmol/L (98-107); Estimated GFR 67.36 (mL/min/1.73m2); Ferritin 183 ng/mL (8-252); Glucose 88 mg/dL (74-106); Potassium 4.4 mmol/L (3.5-5.1); Sodium 141 mmol/L (136-145); Total Protein 7.6 g/dL (6.4-8.2)
[2024-11-30 10:07] LABS: Alpha 1 Antitrypsin,Serum 130 mg/dL (90-200)
== END 2024-11-28 17:32 | disposition home or self-care (01) ==
LOC: NCHCN 17:31
PROVIDERS: PCP Internal Medicine; Visit Provider Physician Assistant
DX: K76.89 Other specified diseases of liver (principal)
CPT/HCPCS: 80053; 83516; 82103; 82728; 83540; 83550; 86038